=== PATIENT | male | born 1950 | race Caucasian/White ===

== ENCOUNTER 2017-03-24 12:18 | Inpatient (IN) | payer OTHER ==
[2017-03-24] VITALS (23 sets, daily range): BP systolic 73–127; BP diastolic 51–85; PULSE 72–132; TEMP 32–32.9; O2SAT 93–100; Ht 170.2 cm; Wt 85.0 kg
[~2017-03-24] VITALS: Ht 170.2 cm; Wt 85.0 kg
[2017-03-24] MEDS ORDERED: LIDOCAINE HCL/D5W 4 MG/ML 2000 MG/500 ML BAG IV STA (12:19)
[2017-03-24] MEDS ORDERED: ASPIRIN 300 MG SUPP PR ONE (12:30)
[2017-03-24] MEDS ORDERED: NiCARDipine HCL INJ 2.5 MG/ML 10 ML AMP ONE (12:39)
[2017-03-24] MEDS ORDERED: HEPARIN SOD (PORCINE) 1000 UNIT/ML 10 ML VIAL ONE (12:39)
[2017-03-24] MEDS ORDERED: FENTANYL CITRATE INJ 50 MCG/1 ML 2 ML VIAL ONE (12:40)
[2017-03-24] MEDS ORDERED: MIDAZOLAM HCL 1 MG/ML 2ML VIAL ONE (12:40)
[2017-03-24] MEDS ORDERED: NITROGLYCERIN/D5W 100MCG/ML 20ML SYR ONE (12:40)
[2017-03-24] MEDS ORDERED: SODIUM CHLORIDE 0.9% 1000ML 1,000 ML IV STA (12:58)
[2017-03-24] MEDS ORDERED: EpINEphrine HCL INJ 4 MG in DEXTROSE 5% 250ML 250 ML IV PRN (12:58)
--- NOTE | 2017-03-24 13:01 | EMERGENCY ROOM VISIT NOTE ---
History Report prepared by Bijal: Thomas Fernandes Under the Supervision of: Dr. Ervin Phipps D.O. First contact with patient: 12:15 Stated Complaint: CARDIAC ARREST/HEART ALERT History of Present Illness The patient is a 66 year old male who presents to the Emergency Room with complaints of centralized sided chest pain that began this morning at 0500. This HPI is provided by EMS and that patient's family secondary to his intubation. When the patient's chest pain began, he did not want to go to the hospital. He took 6 Advil and went about his morning. He then had a witnessed cardiac arrest. The patient's significant other is confined to a wheelchair, so she contacted their neighbor who is a nurse. CPR was initiated at that time. After BLS arrived, they took over CPR. He was defibrillated 4 times. He was given 4 of Epinephrine, a bolus of lidocaine, and 1 L of saline. He was then intubated. We ordered lidocaine for when the patient arrives. The patient has four distal pulses. Source of History: family, EMS Onset: this morning Position: chest (left) Symptom Intensity: moderate Quality: sharp Timing: constant Note: The patient had a witnessed cardiac arrest and was intubated. Review of Systems See HPI for pertinent positives & negatives. A total of 10 systems reviewed and were otherwise negative. Past Medical & Surgical Medical Problems: (1) Anemia (2) Herniated disc (3) Hx of transfusion of packed red blood cells (4) Hx of ulcer disease (5) Kidney stones (6) Obesity (7) Umbilical hernia Surgical Problems: (1) History of lithotripsy Family History FH: cancer FH: lung disease Kidney disease Kidney stones Social History Smoking Status: Never Smoker Alcohol Use: occasionally Marital Status: Housing Status: lives with significant other Occupation Status: employed Current/Historical Medications Unable to Obtain Active Prescriptions or Reported Meds Allergies Coded Allergies: Tomato (Verified Allergy, Intermediate, HIVES, 10/12/13) Physical Exam Vital Signs Date Time Temp Pulse Resp B/P (MAP) Pulse Ox O2 Delivery O2 Flow Rate FiO2 03/24/17 15:25 81 16 127/85 (99) 98 Mechanical Ventilator 100 03/24/17 15:15 81 16 131/85 (100) 98 Mechanical Ventilator 100 03/24/17 13:15 137 03/24/17 13:14 138 03/24/17 13:13 34.6 140 16 Mechanical Ventilator 03/24/17 13:02 64 18 42/28 93 Mechanical Ventilator 15.0 03/24/17 12:57 70 14 37/27 95 Mechanical Ventilator 15.0 03/24/17 12:55 70 21 43/24 94 Mechanical Ventilator 15.0 03/24/17 12:54 100 03/24/17 12:49 84 03/24/17 12:48 87 14 89 Mechanical Ventilator 03/24/17 12:42 Mechanical Ventilator 15.0 03/24/17 12:42 Mechanical Ventilator 15.0 03/24/17 12:42 Mechanical Ventilator 15.0 Physical Exam GENERAL: Patient is unresponsive with an endotracheal tube in place. EYES: Pupils are dilated and minimally reactive to light bilaterally. EARS, NOSE, MOUTH AND THROAT: The nose is without any evidence of any deformity. Mucous membranes are moist tongue is midline NECK: The neck is nontender and supple. RESPIRATORY: Lung sounds are diminished in all left lung lagunas. Respiration is only detected with the ventilator. CARDIOVASCULAR: Regular rate and rhythm noted there no murmurs rubs or gallops normal S1 normal S2 GASTROINTESTINAL: The abdomen is moderately distended, but soft. No guarding or rigidity. Bowel sounds are present in all quadrants. Abdomen is nontender MUSCULOSKELETAL/EXTREMITIES: There is no evidence of gross deformity full range of motion is noted in the hips and shoulders SKIN: Pedal edema bilaterally. There is no obvious evidence of any rash. There are no petechiae, pallor or cyanosis noted. NEUROLOGIC: GCS 3, intubated. Medical Decision & Procedures ER Provider Diagnostic Interpretation: Radiology results as stated below per my review and radiologist interpretation: CHEST ONE VIEW PORTABLE CLINICAL HISTORY: EVALUATE ALTERED MENTAL STATUS/WEAKNESS mental status change COMPARISON STUDY: 10/15/2013 FINDINGS: Interval increase in cardiac size. Diffuse parenchymal infiltrate left hemithorax. Small right-sided pneumothorax. Maximum pleural separation right base is 1.4 cm with 1.1 cm at the upper right hemithorax. There is an endotracheal tube at the genaro. This should be pulled back several centimeters. IMPRESSION: 1. Endotracheal tube at the genaro. 2. This should be pullback several centimeters. 3. Diffuse parenchymal infiltrative change left hemithorax with a slight cardiac mediastinal silhouette shift to left. 4. Small right pneumothorax. The above report was generated using voice recognition software. It may contain grammatical, syntax or spelling errors. Electronically signed by: Martin Lopez M.D. 03/24/2017 1:13 PM Dictated Date/Time: 03/24/2017 1:11 PM CHEST ONE VIEW PORTABLE CLINICAL HISTORY: ORDER TUBE CHECK pneumothorax COMPARISON STUDY: 03/24/2017 12:57 PM FINDINGS: Interval placement of a small caliber right-sided chest tube. Right pneumothorax has resolved. Parenchymal infiltrative changes left hemithorax is similar to perhaps slightly improved. Fullness of the aortopulmonary window region as well as retrocardiac region in terms of increased density are similar. Endotracheal tube is 1 cm above the genaro. IMPRESSION: 1. Placement of a small caliber right-sided chest tube with complete inflation of the right lung. 2. Similar increase in density and diffuse infiltrative change left hemithorax. 3. Endotracheal tube 1 cm above the genaro. The above report was generated using voice recognition software. It may contain grammatical, syntax or spelling errors. Electronically signed by: Martin Lopez M.D. 03/24/2017 1:22 PM Dictated Date/Time: 03/24/2017 1:20 PM Laboratory Results Test 03/24/17 12:33 03/24/17 12:53 03/24/17 12:55 03/24/17 12:57 Bedside Glucose 256 mg/dl (70-99) RDW Standard Deviation 50.3 fL (36.4-46.3) RDW Coefficient of Variation 14.5 % (11.5-14.5) White Blood Count 11.29 K/uL (4.8-10.8) Red Blood Count 3.49 M/uL (4.7-6.1) Hemoglobin 10.4 g/dL (14.0-18.0) Hematocrit 33.4 % (42-52) Mean Corpuscular Volume 95.7 fL (80-100) Mean Corpuscular Hemoglobin 29.8 pg (25-34) Mean Corpuscular Hemoglobin Concent 31.1 g/dl (32-36) Platelet Count 183 K/uL (130-400) Mean Platelet Volume 10.9 fL (7.4-10.4) Neutrophils (%) (Auto) 63.4 % Lymphocytes (%) (Auto) 26.0 % Monocytes (%) (Auto) 6.0 % Eosinophils (%) (Auto) 2.3 % Basophils (%) (Auto) 0.4 % Neutrophils # (Auto) 7.17 K/uL (1.4-6.5) Lymphocytes # (Auto) 2.93 K/uL (1.2-3.4) Monocytes # (Auto) 0.68 K/uL (0.11-0.59) Eosinophils # (Auto) 0.26 K/uL (0-0.5) Basophils # (Auto) 0.04 K/uL (0-0.2) Immature Granulocyte % (Auto) 1.9 % Immature Granulocyte # (Auto) 0.21 K/uL (0.00-0.02) Total Bilirubin 0.3 mg/dl (0.2-1) Direct Bilirubin 0.1 mg/dl (0-0.2) Aspartate Amino Transf (AST/SGOT) 100 U/L (15-37) Alanine Aminotransferase (ALT/SGPT) 78 U/L (12-78) Alkaline Phosphatase 39 U/L (45-117) Total Creatine Kinase 264 U/L (39-308) Creatine Kinase MB 6.9 ng/ml (0.5-3.6) Creatine Kinase MB Ratio 2.6 (0-3.0) Pro-B-Type Natriuretic Peptide 196 pg/ml (0-900) Total Protein 3.7 gm/dl (6.4-8.2) Albumin 1.7 gm/dl (3.4-5.0) Lipase 268 U/L (73-393) Thyroid Stimulating Hormone (TSH) 10.900 uIu/ml (0.300-4.500) Bedside Troponin I 0.350 ng/ml (0-0.045) Test 03/24/17 12:58 03/24/17 13:02 03/24/17 13:55 03/24/17 15:04 Bedside Lactic Acid Venous 9.43 mmol/L (0.90-1.70) Bedside Hemoglobin 8.8 g/dl (14.0-18.0) Bedside Hematocrit 26 % (42-52) Bedside Sodium 146 mEq/L (135-144) Bedside Potassium 2.8 mEq/L (3.3-5.0) Bedside Chloride 115 mEq/L (101-112) Bedside Total CO2 14 mEq/l (24-31) Bedside Blood Urea Nitrogen 10 mg/dl (7-18) Bedside Creatinine 0.9 mg/dl (0.6-1.3) Bedside Glucose (other) 195 mg/dl (70-99) Bedside Ionized Calcium (Lizy) 0.83 mmol/l (1.12-1.32) Bedside Blood Gas pH (LAB) 7.31 (7.35-7.45) Bedside Blood Gas pCO2 (LAB) 33 mmHg (35-46) Bedside Blood Gas pO2 (LAB) 197 mmHg (80-95) Bedside Blood Gas HCO3 (LAB) 17 meq/L (19-24) Bedside Blood Gas Total CO2 18 mEq/l (24-31) Bedside Blood Gas Base Excess (LAB) -9.0 meq/L (-9-1.8) Bedside Blood Gas O2 Saturation 100.0 % (90-95) Test 03/24/17 15:07 Kaolin Activated Coagulation Time 230 SECONDS (94-140) Laboratory results per my review. Medications Administered Medications (Trade) Dose Ordered Sig/Maxine Route Start Time Stop Time Status Last Admin Dose Admin Aspirin (Aspirin Supp) 300 mg ONE ONCE HI 03/24/17 12:30 03/24/17 12:31 DC 03/24/17 12:30 300 MG Lidocaine HCl/ Dextrose (Lidocaine / D5w 4MG/Ml Drip) 2,000 mg NOW STAT IV 03/24/17 12:19 03/24/17 12:22 DC 03/24/17 12:19 2,000 MG Heparin Sodium (Porcine) (Heparin Iv Bolus) 10,000 unit STK-MED ONCE .ROUTE 03/24/17 12:39 03/24/17 12:40 DC 03/24/17 12:39 10,000 UNIT Sodium Bicarbonate (Sodium Bicarbonate 8.4% Inj) 150 ml STK-MED ONCE IV 03/24/17 13:06 03/24/17 13:07 DC 03/24/17 13:06 150 ML Eptifibatide (Integrilin Inj) 40 mg STK-MED ONCE IV 03/24/17 13:47 03/24/17 13:48 DC 03/24/17 13:47 40 MG Eptifibatide (Integrilin Inj) 75 mg STK-MED ONCE IV 03/24/17 13:47 03/24/17 13:48 DC 03/24/17 13:47 75 MG Amiodarone HCL/ Dextrose (Nexterone / D5w) 150 mg STK-MED ONCE .ROUTE 03/24/17 14:02 03/24/17 14:03 DC 03/24/17 14:02 150 MG Amiodarone HCL/ Dextrose (Nexterone / D5w) 360 mg STK-MED ONCE .ROUTE 03/24/17 14:03 03/24/17 14:04 DC 03/24/17 14:03 360 MG Procedure Tube Thoracostomy Indication: Right Sided Pneumothorax Using the pneumothorax kit, the proper area was identified in the anterior axillary line on the right, lateral to the right nipple. The skin was incised using an 11 blade, the chest tube catheter was advanced over top of the needle, good air return noted. The catheter was anchored to the skin using non- absorbable suture material. Attached initially to Heimlich valve then a Pleura- vac. Post procedure chest x-ray showed re-expansion of the right lung. ECG Indication: chest pain Rate (beats per minute): 85 Rhythm: normal sinus Findings: ST elevation (Inferior, with reciprocal changes consistent with inferior wall LA) Comparison ECG Date: Prehospital ECG Change: Prehospital: Sinus tachycardia 138, ST abnormalities in the inferior and lateral leads consistent with LA, no PVCs. Changes are new. ED Course 1215: The patient was evaluated in room B1. A complete history and physical examination were performed. 1219: Ordered Lidocaine HCl/ Dextrose 2000 mg IV 1230: Ordered Aspirin 300 mg HI 1237: While the patient was en route to the hospital, they lost his pulses. He was given an additional dose of Epinephrine which reestablished his pulses. 1252: I updated the patient's family at this time. 1308: I performed a chest tube placement procedure at this time. Please see the procedure note for more information. 1310: I discussed the patient's case with Dr. Metzger of the ICU and Dr. Salazar of Cardiology. The patient will be taken to the cardiac catheterization lab for further treatment and management. Medical Decision Differential diagnosis: Etiologies such as cardiac ischemia, aortic dissection, pulmonary embolism, pneumonia, pneumothorax, musculoskeletal, infections, pericarditis, myocarditis , esophageal rupture, gastrointestinal, as well as others were entertained. Nursing notes reviewed. Additional history is obtained from the patient's family members. Additional history is obtained from the prehospital personnel. The patient is a 66-year-old male who began having chest pain at approximate 5 o 'clock this morning. His significant other prompted him to go to the emergency department but he did not wish to go at that time. The patient took Motrin without relief. He then had a witnessed cardiac arrest at some point through the day. He initially did not have CPR but a neighbor who came to the house started CPR on the patient. BLS arrived on scene as well as ALS shortly after. The patient had defibrillation 4 times as well as 4 doses of epinephrine. He was having episodes of asystole as well as PEA. The patient had a loss of pulse for a prolonged period of time. Initially the boilermaker welder called me for medical command. There was discussion of termination of efforts however the patient had return of spontaneous circulation and the decision was made to transport the patient for facility because his initial 12-lead EKG after return of spontaneous circulation revealed ST segment elevation LA. The patient received lidocaine prior to arrival. The patient was continued on lidocaine and given rectal aspirin in the emergency department. He was resuscitated and made a code arctic while he was in the emergency department. The patient was found have an endotracheal tube which was quite low this was backed up and chest x-ray revealed improved aeration of the left lung field. He was also found have a small pneumothorax on the right given he was on a pressure ventilation a chest tube was placed on the right using the pneumothorax kit. The patient's vital signs improved somewhat. I discussed the patient's laboratory and radiographic studies with his family members. They are aware of the prognosis at this time and that the patient's condition is critical. The patient was reevaluated multiple times. Ultimately he was taken to the cardiac catheterization lab. The patient was evaluated by the air export operations agent while in the emergency department as well. Head Trauma GCS Score: 3 Medication Reconcilliation Current Medication List: was personally reviewed by me Blood Pressure Screening Patient's blood pressure: Low blood pressure Consults Time Called: 1305 Consulting Physician: Dr. Metzger - ICU Returned Call: [phone] We discussed the patient's case. Additional Consults: Time Called: 1305 Consulted Physician: Dr. Salazar - Cardiology Returned Call: [phone] Additional Comments: He will evaluate the patient in the catheterization lab. Impression Primary Impression: Cardiac arrest Additional Impressions: Ventricular tachycardia Acute LA, inferior wall Anemia Hypocalcemia Pneumothorax on right Critical Care I have personally spent greater than 60 minutes of critical care time in the direct management of this patient. This includes bedside care, interpretation of diagnostic studies, and testing, discussion with consultants, patient, and family members, and other required patient management activities. This 60 minutes is in excess of all separately billable procedures. Scribe Attestation The scribe's documentation has been prepared under my direction and personally reviewed by me in its entirety. I confirm that the note above accurately reflects all work, treatment, procedures, and medical decision making performed by me. Departure Information Prescriptions Unable to Obtain Active Prescriptions or Reported Meds Referrals No Doctor, Assigned (PCP) Problem Qualifiers Additional Impressions: Anemia Anemia type: unspecified type Qualified Codes: D64.9 - Anemia, unspecified
[2017-03-24] MEDS ORDERED: SODIUM BICARB 8.4% INJ 50 MEQ/50 ML SYR IV ONE ×2 (13:06→15:08)
--- NOTE | 2017-03-24 13:14 | DIAGNOSTIC IMAGING REPORT ---
CHEST ONE VIEW PORTABLE CLINICAL HISTORY: EVALUATE ALTERED MENTAL STATUS/WEAKNESS mental status change COMPARISON STUDY: 10/15/2013 FINDINGS: Interval increase in cardiac size. Diffuse parenchymal infiltrate left hemithorax. Small right-sided pneumothorax. Maximum pleural separation right base is 1.4 cm with 1.1 cm at the upper right hemithorax. There is an endotracheal tube at the genaro. This should be pulled back several centimeters. IMPRESSION: 1. Endotracheal tube at the genaro. 2. This should be pullback several centimeters. 3. Diffuse parenchymal infiltrative change left hemithorax with a slight cardiac mediastinal silhouette shift to left. 4. Small right pneumothorax. The above report was generated using voice recognition software. It may contain grammatical, syntax or spelling errors. Electronically signed by: Martin Lopez M.D. 03/24/2017 1:13 PM Dictated Date/Time: 03/24/2017 1:11 PM
[2017-03-24 13:15] LABS: ISTAT CREATININE 0.9 mg/dl (0.6-1.3); ISTAT HEMOGLOBIN 8.8 g/dl (14.0-18.0); ISTAT IONIZED CALCIUM 0.83 mmol/l (1.12-1.32)
[2017-03-24 13:18] LABS: BASO % 0.4 %; BASO ABS # 0.04 K/uL (0-0.2); COMPLETE YES; EOS % 2.3 %; HEMATOCRIT 33.4 % (42-52); IG% 1.9 %; LYMPH ABS # 2.93 K/uL (1.2-3.4); MEAN CELL VOLUME 95.7 fL (80-100); MEAN CORPUSCULAR HEMOGLOBIN 29.8 pg (25-34); MEAN CORPUSCULAR HGB CONC 31.1 g/dl (32-36); MEAN PLATELET VOLUME 10.9 fL (7.4-10.4); NEUT % 63.4 %; PLATELET COUNT 183 K/uL (130-400); RED BLOOD COUNT 3.49 M/uL (4.7-6.1); WHITE BLOOD COUNT 11.29 K/uL (4.8-10.8)
--- NOTE | 2017-03-24 13:23 | DIAGNOSTIC IMAGING REPORT ---
CHEST ONE VIEW PORTABLE CLINICAL HISTORY: MD ORDER TUBE CHECK pneumothorax COMPARISON STUDY: 03/24/2017 12:57 PM FINDINGS: Interval placement of a small caliber right-sided chest tube. Right pneumothorax has resolved. Parenchymal infiltrative changes left hemithorax is similar to perhaps slightly improved. Fullness of the aortopulmonary window region as well as retrocardiac region in terms of increased density are similar. Endotracheal tube is 1 cm above the genaro. IMPRESSION: 1. Placement of a small caliber right-sided chest tube with complete inflation of the right lung. 2. Similar increase in density and diffuse infiltrative change left hemithorax. 3. Endotracheal tube 1 cm above the genaro. The above report was generated using voice recognition software. It may contain grammatical, syntax or spelling errors. Electronically signed by: Martin Lopez M.D. 03/24/2017 1:22 PM Dictated Date/Time: 03/24/2017 1:20 PM
[2017-03-24 13:26] LABS: INR 1.1 (0.9-1.1); PARTIAL THROMBOPLASTIN RATIO 1.2
[2017-03-24] MEDS ORDERED: EPTIFIBATIDE 2 MG/ML 10 ML VIAL IV ONE (13:47)
[2017-03-24] MEDS ORDERED: EPTIFIBATIDE 0.75 MG/ML 75MG VIAL IV ONE (13:47)
[2017-03-24 13:53] LABS: ALKALINE PHOSPHATASE 39 U/L (45-117); ALT/SGPT 78 U/L (12-78); AST/SGOT 100 U/L (15-37); BLOOD UREA NITROGEN 12 mg/dl (7-18); BUN/CREATININE RATIO 12.4 (10-20); CALCIUM 5.3 mg/dl (8.5-10.1); CARBON DIOXIDE 13 mmol/L (21-32); CHLORIDE 117 mmol/L (98-107); CKMB/CK RATIO 2.6 (0-3.0); CREATININE 0.98 mg/dl (0.60-1.40); GLUCOSE 203 mg/dl (70-99); MAGNESIUM 1.4 mg/dl (1.8-2.4); PHOSPHORUS 5.3 mg/dl (2.5-4.9); SODIUM 149 mmol/L (136-145)
[2017-03-24] MEDS ORDERED: MIDAZOLAM 125MG/250ML D5W 250 ML IV PRN (13:55)
[2017-03-24] MEDS ORDERED: FENTANYL 1250MCG/250ML NSS 250 ML IV SCH (13:55)
[2017-03-24] MEDS ORDERED: ARTIFICIAL TEARS OP OINT 3.5 GM TUBE OPB PRN (14:00)
[2017-03-24] MEDS ORDERED: BusPIRone 15 MG TAB NG PRN (14:00)
[2017-03-24] MEDS ORDERED: AMIODARONE / D5W 200 ML IV SCH (14:00)
[2017-03-24] MEDS ORDERED: SEVERE STRESS LEVEL ONE (14:00)
[2017-03-24] MEDS ORDERED: INSULIN PROTOCOL GOAL RANGE ONE (14:00)
[2017-03-24] MEDS ORDERED: AMIODARONE 150MG / 100ML D5W ONE (14:02)
[2017-03-24] MEDS ORDERED: AMIODARONE 360MG / 200ML D5W ONE (14:03)
[2017-03-24] MEDS ORDERED: ICU ELECTROLYTE REPLACEMENT PROTOCOL PRN (14:15)
--- NOTE | 2017-03-24 14:22 | Critical Care Consultation ---
Critical Care Consultation Date of Consultation: Mar 24, 2017. Attending Physician: Azar Shook Reason for Consultation: Cardiac Arrest s/p STEMI of mid LAD History of Present Illness History is obtained from EMS as well as the patient's significant other. Since approximately 5:30 this morning the patient had been complaining of mid sternal chest pain, he had taken 2 tablets of Advil approximately 3 times for increasing chest pain that would not go away. Patient's significant other reported that she had convinced the patient to go to the hospital and while in the kitchen the patient suffered a cardiac arrest falling backwards striking his head on the floor. EMS was activated and the patient's significant other who is wheelchair bound called a neighbor who is a nurse who started CPR. Per EMS CPR was in progress upon their arrival, they followed ACLS protocol intubated the patient with a 8.0 endotracheal breathing tube, gave 4 rounds of epinephrine and had continuous CPR. There was a report of possible ventricular fibrillation on the patient monitor and he was defibrillated at least once. After approximately 20 minutes of CPR the patient regained a spontaneous perfusing rhythm. He was transported to [facility] for possible catheter intervention. While in transport the patient suffered another cardiac arrest for which CPR was again started and given 1 additional milligram of epinephrine. In the emergency department the patient was found to have a pneumothorax which was treated promptly at the bedside. The endotracheal tube was also found to be deep and was pulled back and improved aeration and breath sounds. Patient was promptly taken to the cardiac [facility] for further intervention. While in the [facility] the patient was found to have a lesion in the LAD which was stented. Since at least 30 minutes had progressed since the initial cardiac event the patient did not exhibit any spontaneous movements, his Bita Coma Scale was 3T and therapeutic hypothermia protocol was initiated. Both Dr. Phipps and Dr. Salazar as well as myself have updated the patient's family who consists of one son, a sister, and a significant other who resides with him. Past Medical/Surgical History History obtained from the patient's son: History of ulcerative disease leading to acute blood loss anemia for which she was transfused couple years ago. He was seen in [facility] at that time History of kidney stones with lithotripsy requiring hospital admission in [place]. 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) Allergies Coded Allergies: Tomato (Verified Allergy, Intermediate, HIVES, 10/12/13) Home Medications Unable to Obtain Active Prescriptions or Reported Meds Current Inpatient Medications Current Inpatient Medications Medications (Trade) Dose Ordered Sig/Maxine Route Start Time Stop Time Status Last Admin Dose Admin Epinephrine HCl 4 mg/Dextrose 254 ml @ 0 mls/hr Q0M PRN IV 03/24/17 12:58 04/23/17 12:57 Artificial Tears (Lacri-Lube Oph Oint) 1 appln Q2H PRN OPB 03/24/17 14:00 04/23/17 13:59 UNV Midazolam HCl 250 ml @ 0 mls/hr Q0M STAT IV 03/24/17 13:55 03/24/17 13:56 UNV Fentanyl Citrate 250 ml @ 0 mls/hr Q0M IV 03/24/17 13:55 04/07/17 13:54 UNV Buspirone HCl (BusPAR TAB) 60 mg ONE PRN NG 03/24/17 14:00 04/23/17 13:59 UNV Pantoprazole Sodium 40 mg/ Syringe 10 ml @ 5 mls/min Q24H IV 03/24/17 14:00 04/23/17 13:59 UNV Insulin Human Regular (Insulin IV Infusion Protocol) 1 ea NOW STAT N/A 03/24/17 13:55 03/24/17 13:56 UNV Insulin Aspart (novoLOG ASPART) [facility] 03/24/17 19:00 04/23/17 18:59 UNV Miscellaneous (Insulin Protocol Goal Range (Other)) 1 ea ONE ONCE N/A 03/24/17 14:00 03/24/17 14:01 UNV Miscellaneous (Insulin Protocol Severe Stress) 1 ea ONE ONCE N/A 03/24/17 14:00 03/24/17 14:01 UNV Parenteral Electrolyte Solution 1,000 ml @ 125 mls/hr Q8H IV 03/24/17 14:15 04/23/17 14:14 UNV Miscellaneous Information ( Icu Electrolyte Replacement Protocol) 1 ea per protocol PRN N/A 03/24/17 14:15 03/31/17 14:14 UNV Review of Systems unable to obtain due to cardiac arrest Physical Exam Date Time Temp Pulse Resp B/P (MAP) Pulse Ox O2 Delivery O2 Flow Rate FiO2 03/24/17 13:15 137 03/24/17 13:14 138 03/24/17 13:13 34.6 140 16 Mechanical Ventilator 03/24/17 13:02 64 18 93 Mechanical Ventilator 15.0 03/24/17 12:57 70 14 95 Mechanical Ventilator 15.0 03/24/17 12:55 70 21 94 Mechanical Ventilator 15.0 03/24/17 12:54 100 03/24/17 12:49 84 03/24/17 12:48 87 14 89 Mechanical Ventilator 03/24/17 12:42 Mechanical Ventilator 15.0 03/24/17 12:42 Mechanical Ventilator 15.0 03/24/17 12:42 Mechanical Ventilator 15.0 General Appearance: severe distress Abdomen: no organomegaly, hypoactive bowel sounds, other (unbilical hernia freely reducible) Genitourinary - Male: other (miller present) Back: normal inspection Upper Extremities: no edema Lower Extremities: no edema Neuro: memory abnormal, other (GCS 3T) Psychiatric: other (intubated) Laboratory Results Last 24 Hours Test 03/24/17 12:33 03/24/17 12:55 03/24/17 12:57 03/24/17 12:58 White Blood Count 11.29 K/uL Red Blood Count 3.49 M/uL Hemoglobin 10.4 g/dL Hematocrit 33.4 % Mean Corpuscular Volume 95.7 fL Mean Corpuscular Hemoglobin 29.8 pg Mean Corpuscular Hemoglobin Concent 31.1 g/dl Platelet Count 183 K/uL Mean Platelet Volume 10.9 fL Neutrophils (%) (Auto) 63.4 % Lymphocytes (%) (Auto) 26.0 % Monocytes (%) (Auto) 6.0 % Eosinophils (%) (Auto) 2.3 % Basophils (%) (Auto) 0.4 % Neutrophils # (Auto) 7.17 K/uL Lymphocytes # (Auto) 2.93 K/uL Monocytes # (Auto) 0.68 K/uL Eosinophils # (Auto) 0.26 K/uL Basophils # (Auto) 0.04 K/uL RDW Standard Deviation 50.3 fL RDW Coefficient of Variation 14.5 % Immature Granulocyte % (Auto) 1.9 % Immature Granulocyte # (Auto) 0.21 K/uL Prothrombin Time 12.0 SECONDS Prothromb Time International Ratio 1.1 Activated Partial Thromboplast Time 31.3 SECONDS Partial Thromboplastin Ratio 1.2 Sodium Level 149 mmol/L Potassium Level 3.0 mmol/L Chloride Level 117 mmol/L Carbon Dioxide Level 13 mmol/L Anion Gap 19.0 mmol/L Blood Urea Nitrogen 12 mg/dl Creatinine 0.98 mg/dl Estimated GFR () 92.7 Estimated GFR (Non- 80.0 BUN/Creatinine Ratio 12.4 Random Glucose 203 mg/dl Calcium Level 5.3 mg/dl Phosphorus Level 5.3 mg/dl Magnesium Level 1.4 mg/dl Total Bilirubin 0.3 mg/dl Direct Bilirubin 0.1 mg/dl Aspartate Amino Transf (AST/SGOT) 100 U/L Alanine Aminotransferase (ALT/SGPT) 78 U/L Alkaline Phosphatase 39 U/L Total Creatine Kinase 264 U/L Creatine Kinase MB 6.9 ng/ml Creatine Kinase MB Ratio 2.6 Troponin I 0.492 ng/ml Pro-B-Type Natriuretic Peptide 196 pg/ml Total Protein 3.7 gm/dl Albumin 1.7 gm/dl Lipase 268 U/L Thyroid Stimulating Hormone (TSH) 10.900 uIu/ml Bedside Troponin I 0.350 ng/ml Bedside Lactic Acid Venous 9.43 mmol/L Test 03/24/17 13:02 03/24/17 13:55 Bedside Hemoglobin 8.8 g/dl Bedside Hematocrit 26 % Bedside Sodium 146 mEq/L Bedside Potassium 2.8 mEq/L Bedside Chloride 115 mEq/L Bedside Total CO2 14 mEq/l Anion Gap 22.0 mmol/L Bedside Blood Urea Nitrogen 10 mg/dl Bedside Creatinine 0.9 mg/dl Bedside Glucose (other) 195 mg/dl Bedside Ionized Calcium (Lizy) 0.83 mmol/l Diagnostic Results CHEST ONE VIEW PORTABLE CLINICAL HISTORY: MD ORDER TUBE CHECK pneumothorax COMPARISON STUDY: 03/24/2017 12:57 PM FINDINGS: Interval placement of a small caliber right-sided chest tube. Right pneumothorax has resolved. Parenchymal infiltrative changes left hemithorax is similar to perhaps slightly improved. Fullness of the aortopulmonary window region as well as retrocardiac region in terms of increased density are similar. Endotracheal tube is 1 cm above the genaro. IMPRESSION: 1. Placement of a small caliber right-sided chest tube with complete inflation of the right lung. 2. Similar increase in density and diffuse infiltrative change left hemithorax. 3. Endotracheal tube 1 cm above the genaro. The above report was generated using voice recognition software. It may contain grammatical, syntax or spelling errors. Electronically signed by: Martin Lopez M.D. 03/24/2017 1:22 PM Dictated Date/Time: 03/24/2017 1:20 PM Assessment & Plan (1) Cardiac arrest (2) ST elevation (STEMI) myocardial infarction involving left anterior descending coronary artery (3) Anemia (4) Pneumothorax on right (5) Ribs, multiple fractures (6) Closed rib fracture (7) Obesity Reason Critically Ill: 66-year-old male who suffered a cardiac arrest secondary to an ST elevation IA of the left anterior descending coronary artery PLAN: Neuro: Therapeutic hypothermia protocol Continuous EEG monitoring I have notified Dr. Dee of the continuous EEG, I placed a consult for Dr. Lee who is coming on service tomorrow Resp: Multiple rib fractures on right * Pain control with fentanyl infusion Pneumothorax right * Chest tube placed in the ED, placed on suction of -15 cm of water CV: Cardiac arrest secondary to ST elevation IA secondary to occlusion of the mid left anterior descending artery * Amiodarone infusion for arrhythmia * Check lipid panel * Routine post cardiac cath meds * Holding HYUN inhibitor at this time Fluids/Renal: Normal so I'll at 125 ML's number ID: Monitor fever curve GI/Nutrition: Nothing by mouth * G2 to low intermittent wall suction Heme: Will require DVT prophylaxis Will require antiplatelet therapy Endocrine: Check TSH Insulin drip during hypothermia protocol CODE STATUS: Full code Son reports that patient would not want prolonged life support if patient did not have opportunity of meaningful recovery. I have personally spent 95 minutes of critical care time in the direct management of this patient. This is a life/limb threatening event. This includes time spent evaluating patient, direct bedside care, chart review, placing orders, interpretation of diagnostic studies, discussion with consultants, patient, and family members, as well as other required patient management activities. This time is exclusive of all separately billable procedures, and teaching time and separate from and in addition to any other critical care service time.
[2017-03-24] MEDS: INSULIN IV INFUSION PROTOCOL SCH ×2 (14:25→14:40)
[2017-03-24] MEDS ORDERED: GLUCOSE 40% GEL 15 GM TUBE PO PRN (14:30)
[2017-03-24] MEDS ORDERED: GLUCAGON FOR INJ 1 MG VIAL SQ PRN (14:30)
[2017-03-24] MEDS ORDERED: GLUCOSE 10 TABS/TUBE PO PRN (14:30)
[2017-03-24] MEDS ORDERED: DEXTROSE 50% 50 ML SYR IV PRN (14:30)
[2017-03-24 15:21] LABS: ISTAT ARTERIAL BLOOD GAS HCO3 20 meq/L (19-24); ISTAT ARTERIAL BLOOD GAS PCO2 63 mmHg (35-46); ISTAT ARTERIAL BLOOD GAS PO2 150 mmHg (80-95); ISTAT ARTERIAL BLOOD GAS pH 7.12 (7.35-7.45); ISTAT CARBON DIOXIDE 22 mEq/l (24-31)
[2017-03-24 15:21] LABS: ISTAT ARTERIAL BLOOD GAS HCO3 17 meq/L (19-24); ISTAT ARTERIAL BLOOD GAS PCO2 33 mmHg (35-46); ISTAT ARTERIAL BLOOD GAS PO2 197 mmHg (80-95); ISTAT ARTERIAL BLOOD GAS pH 7.31 (7.35-7.45); ISTAT CARBON DIOXIDE 18 mEq/l (24-31)
[2017-03-24] MEDS ORDERED: AMIODARONE IV BOLUS / DRIP IV STA (15:24)
[2017-03-24] MEDS ORDERED: EPTIFIBATIDE BOLUS / DRIP IV ONE (15:30)
--- NOTE | 2017-03-24 16:01 | Cardiac Catheterization ---
Procedure Note Procedure Date Mar 24, 2017. Pre-Procedure Diagnosis STEMI AUC Score 9 Post-Procedure Diagnosis Severe CAD, Successful PCI, Normal Intracardiac Pressures Procedure(s) Performed Coronary Angiography, Left Heart Cath, Drug Eluting Stent, IVUS Core Baker Martin Chimney Builder Brick(s) wilmer Estimated Blood Loss 25 Medication(s) Heparin, Integrilin, Nicardipine, Nitroglycerin, Norepinephrine, Versed, Lidocaine 1% Into laborer salvage on epinephrine, lidocaine switched to norepinephrine, amiodarone Summary of Findings Indication: STEMI/Heart Alert Patient with complaints of chest pain approximately 5AM today. Cardiac arrest at home with more than 20 minutes of CPR and reportedly multiple shocks in the field/en route. ECG on arrival showed subtle inferior ST elevations, anterior ST depressions. Cooling protocol initiated in ED. Chest tube placed for pneumothorax in ED prior to transfer to laborer salvage. Access: 6Fr Right Radial Artery; 7Fr right CFV Catheters: Lincoln, pigtail; EBU 3.5 guide Findings: LM - Angiographically normal LAD - Moderate diffuse mid segment disease, 50% angiographically proximal to take-off of small 2nd diagonal, moderate 3rd diagonal; 100% acute occlusion in mid segment after diagonals. 60% ostial 2nd diagonal. 50-60% ostial 3rd diagonal. Circumflex - Moderate caliber vessel gives off large OM2, moderate OM3. Minimal luminal irregularities throughout. RCA - Dominant, 20% mid segment stenosis otherwise mild luminal irregularities. LVEDP - 17 -- PCI -- Antithrombotic therapy: Heparin, Integrilin Procedure: LM cannulated with EBU 3.5 guide Whisper wire passed across LAD lesion into distal vessel Mid lesion predilated with 2.5 compliant balloon Stent delivered to mid segment with aid of guideliner due to difficulty passing early-mid segment disease Dilated lesion stented with 2.75 x 28 Xience LIN from mid to distal vessel 2nd LIN overlapped proximally 2.75 x 23 Xience for residual moderate disease. IC vasodilators given for slow distal flow IVUS showed underexpanded stent proximally and 70% mildly calcified disease just before take-off of large 3rd diagonal. Stents post-dilated with 3.5 noncompliant balloon 3rd diagonal re-wired with with prowater wire 3rd (3.5 x 18 Xience) overlapping stent placed across take-off of 2nd/3rd diagonal Stents post-dilated with 3.5 NC balloon. Post procedure LEANNA 3 flow, stents well expanded with minimal residual stenosis and no apparent cardiac complications. 50% residual ostial stenosis in 3rd diagonal with TIMI3 flow. Arterial Closure: TR Band 7Fr Right CFV sheath sutured into place. Summary: 1. Acutely occluded late-mid LAD - Diffuse moderate to severe more proximal disease throughout mid segment of LAD 2. Normal intracardiac filling pressure 3. Successful PCI of mid LAD with 3 overlapping LIN (3.5 x 18, 2.75 x 23, 2.75 x 28 Xience) Recommendations: Admit to ICU for continued monitoring Therapeutic hypothermia per ICU team Continue integrilin for 8 hours Continue amiodarone infusion. To receive clopidogrel 600mg via NG tube in ICU Continue dual-antiplatelet therapy for at least a year Trend troponins until peak, Check Echo High-dose statin Hemodynamics Rest Ao: 140/91/113 Final Ao: 113/62/84 LV: 110/17 Recommendations PCI without planned CABG Specimens None Radiation Exposure (mGy) 6380 Contrast (mls) 260 Fluids (cc crystalloids) 3 L Drains None Anesthesia None Procedural Complication(s) None Disposition ICU ACC Data Cardiac Status Clinical evaluation leading to the procedure CAD Presntation: STEMI Anginal Classification: CCS IV Cardiogenic Shock w/in 24Hrs: Yes Cardiac Arrest w/in 24Hrs: Yes Imaging studies past 6 months: No Stress studies past 6 months: No Closure Device Percutaneous Entry Location: Radial Closure Device: Radial Band Recommendations: PCI without planned CABG PCI Indication: Immediate PCI for STEMI First Noted: First EKG Reason For Delay in PCI: Cardiac Arrest &/or Lesion Segment Name: Mid LAD Culprit Artery: Yes Stenosis Prior to Rx (%): 100 Chronic Total Occlusion: No IVUS: Yes FFR: No Pre-Procedure LEANNA Flow: 0 Previously Treated Lesion: No Lesion Complexity: High/C Lesion Length (mm): 45 Thrombus Present: Yes Bifurcation Lesion: Yes Guidewire Across Lesion: Yes Guidewire: Stenosis Post-Procedure (%): 0 Post-Procedure LEANNA Flow: 3 Device(s) Deployed: Yes Intraprocedure Events Significant Dissection: No Perforation: No
[2017-03-24] MEDS ORDERED: CLOPIDOGREL BISULFATE 300 MG TAB PO SCH (16:30)
[2017-03-24] MEDS ORDERED: NURSING VERBAL MED ORDER ONE (16:45)
[2017-03-24] MEDS ORDERED: PATIENT'S HEIGHT AND/OR WEIGHT NEEDED SCH (16:45)
--- NOTE | 2017-03-24 16:47 | ECHOCARDIOGRAM REPORT ---
*NOTICE TO RECEIVING LIBERTARIAN AGENCY This information is strictly Confidential and protected under [place] law. [place] law prohibits you from making any further disclosure of this information unless further disclosure is expressly permitted by the written consent of the person to whom it pertains or is authorized by law. A general authorization for the release of medical or other information is not sufficient for this purpose. Hospital accepts no responsibility if the information is made available to any other person, INCLUDING THE PATIENT. Interpretation Summary * Name: ESTRELLA MUÑOZ Study Date: 03/24/2017 04:00 PM BP: 127/85 mmHg * Patient Location: [facility] HR: 81 * : 1950 (M/d/yyyy) Gender: Male * Age: 66 yrs Ethnicity: CA * Ordering Physician: MD Brandyn Salazar MD * Referring Physician: UNKNOWN * Performed By: Nery Hazel RDCS * * Reason For Study: AMI * -- Conclusions -- * 1. Severely technically limited study. * 2. Small underfilled LV. * 3. LVEF grossly normal with akinetic apex. * 4. Grossly normal RV size and function. * 5. No pericardial effusion. Procedure Details * A two-dimensional transthoracic echocardiogram was performed. * The study was technically limited. * The study was technically difficult. * Limited views were obtained. * There were technical limitations due to patient'ssupine positioning while on mechanical ventilation Left Ventricle * The left ventricular cavity is small. * Left ventricular systolic function is mildly reduced. * Ejection Fraction = 45-50%. * There is apical akinesis. Right Ventricle * The right ventricle is grossly normal size. * The right ventricular systolic function is qualitatively normal. Atria * The left atrium is not well visualized. * Right atrium not well visualized. Mitral Valve * The mitral valve is not well visualized. Aortic Valve * The aortic valve is not well visualized. Pericardium/Pleural * There is no pericardial effusion.
[2017-03-24] MEDS: NOREPINEPHRINE BIT INJ 8 MG in DEXTROSE 5% 500ML 500 ML IV PRN (17:15)
[2017-03-24] MEDS: INSULIN ASPART 100 UNITS/ML 3 ML PEN SC SCH ×2 (17:15→21:00)
[2017-03-24] MEDS: NORMOSOL R 1,000 ML IV SCH (17:22)
--- NOTE | 2017-03-24 17:24 | DIAGNOSTIC IMAGING REPORT ---
HEAD WITHOUT CONTRAST (CT) CT DOSE: 3223.37 mGy.cm HISTORY: Trauma syncope TECHNIQUE: Multiaxial CT images of the head were performed without the use of intravenous contrast. A dose lowering technique was utilized adhering to the principles of ALARA. Comparison: None. Findings: The paranasal sinuses and mastoid air cells are clear. Increased density within all major sinuses as well as the interhemispheric fissure region. By history there appears to have been a catheterization type procedure several hours prior to the CT exam. This appears represent residual contrast from that procedure rather than blood. Density characteristics of the cerebellar as well as cerebral hemispheres are unremarkable. There is no deviation of midline structures. Impression: 1. Residual contrast from prior catheterization procedure. 2. No acute intracranial abnormality. 3. Moderate edematous changes the nasal turbinates and nasopharyngeal region The above report was generated using voice recognition software. It may contain grammatical, syntax or spelling errors. Electronically signed by: Martin Lopez M.D. 03/24/2017 5:23 PM Dictated Date/Time: 03/24/2017 5:21 PM
--- NOTE | 2017-03-24 17:26 | DIAGNOSTIC IMAGING REPORT ---
CERVICAL SPINE W/O CT DOSE: HISTORY: Trauma syncope fall TECHNIQUE: Multiaxial CT images of the cervical spine were performed and reformatted in the sagittal and coronal plane without the use of contrast. A dose lowering technique was utilized adhering to the principles of ALARA. COMPARISON: None. FINDINGS: No fractures. No subluxation. Prevertebral soft tissues and the C1-C2 interval are intact. No pneumothorax. Endotracheal tube in position. Small amount of fluid within the sphenoid sinuses. Mastoids are considered clear. Bilateral apical consolidative infiltrative changes present IMPRESSION: 1. No acute process of the cervical spine.. 2. Apical consolidative infiltrates of the pulmonary apices bilaterally. 3. Endotracheal tube and most likely nasogastric tube are present. The above report was generated using voice recognition software. It may contain grammatical, syntax or spelling errors. Electronically signed by: Martin Lopez M.D. 03/24/2017 5:25 PM Dictated Date/Time: 03/24/2017 5:23 PM
[2017-03-24 17:36] LABS: HEMATOCRIT 38.4 % (42-52); MEAN CELL VOLUME 93.4 fL (80-100); MEAN CORPUSCULAR HEMOGLOBIN 30.4 pg (25-34); MEAN CORPUSCULAR HGB CONC 32.6 g/dl (32-36); MEAN PLATELET VOLUME 10.8 fL (7.4-10.4); PLATELET COUNT 240 K/uL (130-400); RED BLOOD COUNT 4.11 M/uL (4.7-6.1); WHITE BLOOD COUNT 21.35 K/uL (4.8-10.8)
[2017-03-24 17:44] LABS: INR 1.2 (0.9-1.1); PARTIAL THROMBOPLASTIN RATIO 3.9; PROTHROMBIN TIME (PATIENT) 12.8 SECONDS (9.0-12.0)
[2017-03-24 17:45] LABS: BASO % 0.2 %; BASO ABS # 0.04 K/uL (0-0.2); COMPLETE YES; ECHINOCYTES 2+; EOS % 0.6 %; IG% 0.7 %; LYMPH % 11.2 %; LYMPH ABS # 2.39 K/uL (1.2-3.4); MONO % 4.8 %; NEUT % 82.5 %
[2017-03-24 17:50] LABS: BUN/CREATININE RATIO 11.7 (10-20); CALCIUM 6.6 mg/dl (8.5-10.1); CARBON DIOXIDE 23 mmol/L (21-32); CHLORIDE 107 mmol/L (98-107); CREATININE 1.62 mg/dl (0.60-1.40); GLUCOSE 305 mg/dl (70-99); MAGNESIUM 1.8 mg/dl (1.8-2.4); POTASSIUM 2.8 mmol/L (3.5-5.1); SODIUM 143 mmol/L (136-145)
[2017-03-24 17:56] LABS: PHOSPHORUS 1.9 mg/dl (2.5-4.9)
[2017-03-24 18:01] LABS: BETA-HYDROXYBUTYRATE 6.47 mg/dL (0.2-2.81)
[2017-03-24 18:02] LABS: BLOOD UREA NITROGEN 19 mg/dl (7-18)
[2017-03-24 18:25] LABS: ISTAT ARTERIAL BLOOD GAS HCO3 14 meq/L (19-24); ISTAT ARTERIAL BLOOD GAS PCO2 24 mmHg (35-46); ISTAT ARTERIAL BLOOD GAS PO2 121 mmHg (80-95); ISTAT ARTERIAL BLOOD GAS pH 7.36 (7.35-7.45); ISTAT CARBON DIOXIDE 14 mEq/l (24-31); ISTAT DELIVERY SYSTEM Ventilator; ISTAT FIO2 80 %; ISTAT PEEP 10; ISTAT RATE 16; ISTAT SITE Art Line; VE 8; Vt 500
[2017-03-24] MEDS ORDERED: INSULIN HUMAN REGULAR IV BOLUS 2 UNIT in SYRINGE 0 ML IV SCH (18:30)
--- NOTE | 2017-03-24 18:32 | Procedure Note ---
Procedure Note Procedure Date Mar 24, 2017. Procedure Description Procedure Name: LEFT radial arterial line Procedure time out: side/site verified, patient ID confirmed, correct procedure Consent obtained: written (obtained from patient's son) Time of procedure: 18:00 Performed by: attending Indications: diagnostic Contraindications: other (recent cardiac cath on Integrilin) Description: The patient's wrist was prepped with ChloraPrep and draped in sterile fashion. Using dynamic ultrasound guidance the left radial artery was visualized and a 20 -gauge Angiocath was placed percutaneously via modified Seldinger technique into the left radial artery. No anesthesia was utilized there was no response from the patient during this procedure. Complications: none Patient tolerated procedure: well Post-procedure vital signs: reviewed and stable Comments: Critical Care Medicine Point of Care Bedside Ultrasound Procedure: Procedural Ultrasound Procedure Date: 03/24/2017 Indication: Left arterial line placement Attending: David Metzger DO Resident/Physician Ink Maker: Not applicable Artery AND Vein visualized: Artery visualized Compressible Vein: Artery not compressible, pulsatile Guidewire or Short Catheter seen in vein prior to dilation: No dilatation, guidewire seen in artery Impression: Successful placement of a left arterial line Images obtained are saved for permanent record
[2017-03-24] MEDS: INSULIN REGULAR 250 UNITS in SODIUM CHLORIDE 0.9% 250ML 250 ML IV SCH (18:51)
[2017-03-24] MEDS ORDERED: THIAMINE HCL 100 MG/ML 2 ML VIAL IM ONE (19:04)
[2017-03-24] MEDS ORDERED: WTR IV SCH (19:15)
[2017-03-24] MEDS ORDERED: POTASSIUM CHLR IV SCH (19:15)
[2017-03-24] MEDS ORDERED: PREMIXED WATER IV SCH (19:15)
[2017-03-24] MEDS: POTASSIUM CHLR 10MEQ / WTR IV SCH ×3 (19:17→22:03)
[2017-03-24] MEDS ORDERED: EPTIFIBATIDE INJ 75 MG PREMIXED IV SCH ×2 (19:30→20:45)
[2017-03-24 19:42] LABS: URINE APPEARANCE CLOUDY (CLEAR); URINE BILIRUBIN NEG (NEG); URINE COLOR YELLOW; URINE NITRITE NEG (NEG); URINE PH 5.5 (4.5-7.5); URINE SPECIFIC GRAVITY 1.038 (1.000-1.030); UROBILINOGEN NEG (NEG); ZZURINE CULT IF INDIC CATH YES
[2017-03-24] MEDS: AMIODARONE / D5W 200 ML IV SCH (19:44)
[2017-03-24 19:45] LABS: MANUAL MICROSCOPIC REQUIRED? NO; REVIEW REQ? YES
[2017-03-24 19:51] LABS: HEMATOCRIT 36.2 % (42-52); MEAN CELL VOLUME 91.6 fL (80-100); MEAN CORPUSCULAR HEMOGLOBIN 31.1 pg (25-34); MEAN PLATELET VOLUME 10.5 fL (7.4-10.4); PLATELET COUNT 221 K/uL (130-400); RED BLOOD COUNT 3.95 M/uL (4.7-6.1); WHITE BLOOD COUNT 24.53 K/uL (4.8-10.8)
[2017-03-24 19:55] LABS: URINE PATH CASTS 5-10 GRANULAR CASTS /lpf (0)
[2017-03-24 20:04] LABS: BENZODIAZEPINE, URINE NEG (NEG); COCAINE,URINE NEG (NEG); PHENCYCLIDINE, URINE NEG (NEG)
[2017-03-24] MEDS: PANTOprazole INJ 40 MG in SYRINGE 0 ML IV SCH (20:04)
[2017-03-24 20:08] LABS: BLOOD UREA NITROGEN 24 mg/dl (7-18); BUN/CREATININE RATIO 12.9 (10-20); CALCIUM 6.6 mg/dl (8.5-10.1); CARBON DIOXIDE 14 mmol/L (21-32); CHLORIDE 110 mmol/L (98-107); CREATININE 1.89 mg/dl (0.60-1.40); GLUCOSE 302 mg/dl (70-99); MAGNESIUM 1.8 mg/dl (1.8-2.4); PHOSPHORUS 1.6 mg/dl (2.5-4.9); SODIUM 143 mmol/L (136-145)
[2017-03-24 20:09] LABS: INR 1.1 (0.9-1.1); PARTIAL THROMBOPLASTIN RATIO 2.1; PROTHROMBIN TIME (PATIENT) 12.3 SECONDS (9.0-12.0)
[2017-03-24 20:12] LABS: BASO % 0.2 %; BASO ABS # 0.04 K/uL (0-0.2); COMPLETE YES; ECHINOCYTES 2+; EOS % 0.2 %; IG% 0.7 %; LYMPH % 10.6 %; LYMPH ABS # 2.59 K/uL (1.2-3.4); MONO % 6.3 %
[2017-03-24 20:17] LABS: BETA-HYDROXYBUTYRATE 7.08 mg/dL (0.2-2.81)
[2017-03-24 20:47] LABS: ISTAT ARTERIAL BLOOD GAS HCO3 11 meq/L (19-24); ISTAT ARTERIAL BLOOD GAS PCO2 21 mmHg (35-46); ISTAT ARTERIAL BLOOD GAS PO2 99 mmHg (80-95); ISTAT CARBON DIOXIDE 12 mEq/l (24-31); ISTAT DELIVERY SYSTEM Ventilator; ISTAT FIO2 70 %; ISTAT PEEP 10; ISTAT RATE 12; ISTAT SITE Art Line; VE 6; Vt 500
[2017-03-24] MEDS ORDERED: CALCIUM GLUCONATE 10% 1,000 MG in SODIUM CHLORIDE 0.9% 50ML 50 ML IV STA (21:00)
[2017-03-24] MEDS ORDERED: SODIUM PHOSPHATE 3 MMOL/1 ML INFUSION IV STA (21:00)
[2017-03-24] MEDS ORDERED: CALCIUM GLUCONATE 10% 1,000 MG in SODIUM CHLORIDE 0.9% 50ML 50 ML IV SCH (21:30)
[2017-03-24] MEDS ORDERED: SODIUM PHOSPHATE INJ 21 MMOL in SODIUM CHLORIDE 0.9% 500ML 500 ML IV ONE (21:30)
[2017-03-24] MEDS ORDERED: Integrelin infusion --> STOP ORDER ONE (23:00)
[2017-03-24 23:55] LABS: HEMATOCRIT 34.9 % (42-52); MEAN CELL VOLUME 91.1 fL (80-100); MEAN CORPUSCULAR HEMOGLOBIN 30.5 pg (25-34); MEAN CORPUSCULAR HGB CONC 33.5 g/dl (32-36); MEAN PLATELET VOLUME 10.6 fL (7.4-10.4); PLATELET COUNT 223 K/uL (130-400); RED BLOOD COUNT 3.83 M/uL (4.7-6.1); WHITE BLOOD COUNT 21.84 K/uL (4.8-10.8)
[2017-03-25] VITALS (28 sets, daily range): BP systolic 88–149; BP diastolic 41–90; PULSE 57–77; TEMP 33.3–36.2; O2SAT 90–100
[2017-03-25 00:01] LABS: ISTAT ARTERIAL BLOOD GAS HCO3 13 meq/L (19-24); ISTAT ARTERIAL BLOOD GAS PCO2 20 mmHg (35-46); ISTAT ARTERIAL BLOOD GAS PO2 93 mmHg (80-95); ISTAT ARTERIAL BLOOD GAS pH 7.39 (7.35-7.45); ISTAT CARBON DIOXIDE 13 mEq/l (24-31); ISTAT DELIVERY SYSTEM Ventilator; ISTAT FIO2 60 %; ISTAT PEEP 10; ISTAT RATE 12; ISTAT SITE Art Line; VE 6; Vt 500
[2017-03-25 00:05] LABS: INR 1.1 (0.9-1.1); PARTIAL THROMBOPLASTIN RATIO 1.1; PROTHROMBIN TIME (PATIENT) 11.9 SECONDS (9.0-12.0)
[2017-03-25] MEDS ORDERED: NURSING VERBAL MED ORDER STA (00:11)
[2017-03-25 00:12] LABS: BLOOD UREA NITROGEN 27 mg/dl (7-18); BUN/CREATININE RATIO 13.9 (10-20); CALCIUM 7.1 mg/dl (8.5-10.1); CARBON DIOXIDE 13 mmol/L (21-32); CHLORIDE 111 mmol/L (98-107); CREATININE 1.95 mg/dl (0.60-1.40); GLUCOSE 194 mg/dl (70-99); MAGNESIUM 1.7 mg/dl (1.8-2.4); POTASSIUM 2.9 mmol/L (3.5-5.1); SODIUM 144 mmol/L (136-145)
[2017-03-25] MEDS: POTASSIUM CHLR 10MEQ / WTR IV SCH ×3 (00:19→01:46)
[2017-03-25] MEDS: NORMOSOL R 1,000 ML IV SCH (00:28)
[2017-03-25 00:30] LABS: BASO % 0.1 %; BASO ABS # 0.02 K/uL (0-0.2); COMPLETE YES; ECHINOCYTES 2+; EOS % 0.1 %; LYMPH % 10.2 %; LYMPH ABS # 2.23 K/uL (1.2-3.4); NEUT % 81.6 %; VACUOLIZATION 1+
[2017-03-25] MEDS ORDERED: NORMOSOL R 1,000 ML IV SCH ×2 (00:30→01:30)
[2017-03-25 00:34] LABS: PHOSPHORUS 2.5 mg/dl (2.5-4.9)
--- NOTE | 2017-03-25 00:44 | History and Physical ---
History & Physical Date & Time of Service: Mar 24, 2017 Chief Complaint: Cardiac Arrest Primary Care Physician: No Doctor, Assigned History of Present Illness Source: hospital records, other (ER MD reports) Pt is a 66 yo male who presented to the hospital via EMS after having chest pain followed by cardiac arrest. He was resuscitated at home first by a neighbor , and then by EMS. He had ROSC after approx 20 min at home, then arrested again en route to the hospital and again achieved ROSC. He had a PTX on the right on arrival with placement of a chest tube. He was stabilized and taken [facility] where he had a stent placed to the LAD. He was then transported to the ICU and is undergoing hypothermic protocol at the time I saw him. Past Medical/Surgical History Medical Problems: (1) Anemia Status: Chronic (2) Herniated disc Status: Chronic (3) Hx of transfusion of packed red blood cells Status: Resolved (4) Hx of ulcer disease Status: Resolved (5) Kidney stones Status: Resolved (6) Obesity Status: Chronic (7) Umbilical hernia Status: Chronic Uulcerative colitis Surgical Problems: (1) History of lithotripsy Family History FH: cancer FH: lung disease Kidney disease Kidney stones Social History Smoking Status: Never Smoker Smokeless Tobacco Use: No Alcohol Use: socially (rare) Drug Use: none Marital Status: in relationship 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) Allergies Coded Allergies: Tomato (Verified Allergy, Intermediate, HIVES, 10/12/13) Home Medications Unable to Obtain Active Prescriptions or Reported Meds Review of Systems unobtainable due to altered MS Physical Exam Vital Signs Date Time Temp Pulse Resp B/P (MAP) Pulse Ox O2 Delivery O2 Flow Rate FiO2 03/25/17 00:05 60 03/24/17 23:00 32.5 84 15 101/74 (83) 96 Mechanical Ventilator 60 113/72 (86) 03/24/17 22:00 32.0 76 15 104/70 (81) 99 60 90/79 (83) 03/24/17 21:00 32.2 72 14 84/64 (71) 99 98/67 (77) 03/24/17 20:36 60 03/24/17 20:00 99 Mechanical Ventilator 80 03/24/17 20:00 32.7 84 14 79/53 (62) 99 Mechanical Ventilator 80 94/57 (69) 03/24/17 20:00 80 03/24/17 19:48 80 03/24/17 19:20 32.9 84 14 73/51 (58) 99 Mechanical Ventilator 80 84/54 (64) 03/24/17 18:17 74 19 109/70 (89) 80/53 03/24/17 18:15 88 24 (79) 115/67 03/24/17 18:00 93 24 (84) 127/69 03/24/17 17:46 88 24 81/64 (70) 03/24/17 17:45 98 24 03/24/17 17:32 92 24 78/56 (58) 03/24/17 17:30 85 24 03/24/17 17:15 91 22 100 03/24/17 17:03 117/63 (77) 03/24/17 16:55 80 03/24/17 16:32 94 22 126/56 (96) 03/24/17 16:30 94 22 03/24/17 16:16 107 16 108/60 (84) 100 03/24/17 16:15 98 16 100 03/24/17 16:10 91 20 91/78 (88) 100 03/24/17 16:00 132 20 93 03/24/17 15:54 87 20 111/60 (63) 03/24/17 15:45 32.7 86 16 127/85 97 Mechanical Ventilator 03/24/17 15:25 81 16 127/85 (99) 98 Mechanical Ventilator 100 03/24/17 15:15 81 16 131/85 (100) 98 Mechanical Ventilator 100 03/24/17 13:15 137 03/24/17 13:14 138 03/24/17 13:13 34.6 140 16 Mechanical Ventilator 03/24/17 13:02 64 18 42/28 93 Mechanical Ventilator 15.0 03/24/17 12:57 70 14 37/27 95 Mechanical Ventilator 15.0 03/24/17 12:55 70 21 43/24 94 Mechanical Ventilator 15.0 03/24/17 12:54 100 03/24/17 12:49 84 03/24/17 12:48 87 14 89 Mechanical Ventilator 03/24/17 12:42 Mechanical Ventilator 15.0 03/24/17 12:42 Mechanical Ventilator 15.0 03/24/17 12:42 Mechanical Ventilator 15.0 General Appearance: no apparent distress (intubated and sedated), + obese Head: normocephalic, atraumatic ENT: + pertinent finding (ET tube in place) Neck: trachea midline Respiratory/Chest: lungs clear, normal breath sounds, no respiratory distress, no accessory muscle use, + pertinent finding (right sided chest tube with bloody drainage from right anterior axillary line) Cardiovascular: no edema, no gallop, no murmur, normal peripheral pulses, + irregularly irregular Abdomen/GI: normal bowel sounds, non tender, soft, no organomegaly, + hernia ( small umbilical hernia easily reducible) Genitourinary - Male: normal male genitalia (with Ayala in place) Extremities/Musculoskelatal: no pedal edema Neurologic/Psych: + pertinent finding (sedated) Skin: normal color, warm/dry, no rash Diagnostics Laboratory Results Results Past 24 Hours Test 03/24/17 12:53 03/24/17 12:55 03/24/17 12:57 03/24/17 12:58 Range/Units Bedside Glucose 256 70-99 mg/dl White Blood Count 11.29 4.8-10.8 K/uL Red Blood Count 3.49 4.7-6.1 M/uL Hemoglobin 10.4 14.0-18.0 g/dL Hematocrit 33.4 42-52 % Mean Corpuscular Volume 95.7 80-100 fL Mean Corpuscular Hemoglobin 29.8 25-34 pg Mean Corpuscular Hemoglobin Concent 31.1 32-36 g/dl Platelet Count 183 130-400 K/uL Mean Platelet Volume 10.9 7.4-10.4 fL Neutrophils (%) (Auto) 63.4 % Lymphocytes (%) (Auto) 26.0 % Monocytes (%) (Auto) 6.0 % Eosinophils (%) (Auto) 2.3 % Basophils (%) (Auto) 0.4 % Neutrophils # (Auto) 7.17 1.4-6.5 K/uL Lymphocytes # (Auto) 2.93 1.2-3.4 K/uL Monocytes # (Auto) 0.68 0.11-0.59 K/uL Eosinophils # (Auto) 0.26 0-0.5 K/uL Basophils # (Auto) 0.04 0-0.2 K/uL RDW Standard Deviation 50.3 36.4-46.3 fL RDW Coefficient of Variation 14.5 11.5-14.5 % Immature Granulocyte % (Auto) 1.9 % Immature Granulocyte # (Auto) 0.21 0.00-0.02 K/uL Prothrombin Time 12.0 9.0-12.0 SECONDS Prothromb Time International Ratio 1.1 0.9-1.1 Activated Partial Thromboplast Time 31.3 21.0-31.0 SECONDS Partial Thromboplastin Ratio 1.2 Sodium Level 149 136-145 mmol/L Potassium Level 3.0 3.5-5.1 mmol/L Chloride Level 117 98-107 mmol/L Carbon Dioxide Level 13 21-32 mmol/L Anion Gap 19.0 3-11 mmol/L Blood Urea Nitrogen 12 7-18 mg/dl Creatinine 0.98 0.60-1.40 mg/dl Estimated GFR () 92.7 Estimated GFR (Non- 80.0 BUN/Creatinine Ratio 12.4 10-20 Random Glucose 203 70-99 mg/dl Calcium Level 5.3 8.5-10.1 mg/dl Phosphorus Level 5.3 2.5-4.9 mg/dl Magnesium Level 1.4 1.8-2.4 mg/dl Total Bilirubin 0.3 0.2-1 mg/dl Direct Bilirubin 0.1 0-0.2 mg/dl Aspartate Amino Transf (AST/SGOT) 100 15-37 U/L Alanine Aminotransferase (ALT/SGPT) 78 12-78 U/L Alkaline Phosphatase 39 45-117 U/L Total Creatine Kinase 264 39-308 U/L Creatine Kinase MB 6.9 0.5-3.6 ng/ml Creatine Kinase MB Ratio 2.6 0-3.0 Troponin I 0.492 0-0.045 ng/ml Pro-B-Type Natriuretic Peptide 196 0-900 pg/ml Total Protein 3.7 6.4-8.2 gm/dl Albumin 1.7 3.4-5.0 gm/dl Lipase 268 73-393 U/L Thyroid Stimulating Hormone (TSH) 10.900 0.300-4.500 uIu/ml Bedside Troponin I 0.350 0-0.045 ng/ml Bedside Lactic Acid Venous 9.43 0.90-1.70 mmol/L Test 03/24/17 13:02 03/24/17 13:34 03/24/17 14:24 03/24/17 15:04 Range/Units Bedside Hemoglobin 8.8 14.0-18.0 g/dl Bedside Hematocrit 26 42-52 % Bedside Sodium 146 135-144 mEq/L Bedside Potassium 2.8 3.3-5.0 mEq/L Bedside Chloride 115 101-112 mEq/L Bedside Total CO2 14 24-31 mEq/l Anion Gap 22.0 16-25 mmol/L Bedside Blood Urea Nitrogen 10 7-18 mg/dl Bedside Creatinine 0.9 0.6-1.3 mg/dl Bedside Glucose (other) 195 70-99 mg/dl Bedside Ionized Calcium (Lizy) 0.83 1.12-1.32 mmol/l Bedside Blood Gas pH (LAB) 7.12 7.31 7.35-7.45 Bedside Blood Gas pCO2 (LAB) 63 33 35-46 mmHg Bedside Blood Gas pO2 (LAB) 150 197 80-95 mmHg Bedside Blood Gas HCO3 (LAB) 20 17 19-24 meq/L Bedside Blood Gas Total CO2 22 18 24-31 mEq/l Bedside Blood Gas Base Excess (LAB) -9.0 -9.0 -9-1.8 meq/L Bedside Blood Gas O2 Saturation 98.0 100.0 90-95 % Kaolin Activated Coagulation Time 202 94-140 SECONDS Test 03/24/17 15:07 03/24/17 17:14 03/24/17 18:11 03/24/17 19:30 Range/Units Kaolin Activated Coagulation Time 230 94-140 SECONDS White Blood Count 21.35 4.8-10.8 K/uL Red Blood Count 4.11 4.7-6.1 M/uL Hemoglobin 12.5 14.0-18.0 g/dL Hematocrit 38.4 42-52 % Mean Corpuscular Volume 93.4 80-100 fL Mean Corpuscular Hemoglobin 30.4 25-34 pg Mean Corpuscular Hemoglobin Concent 32.6 32-36 g/dl Platelet Count 240 130-400 K/uL Mean Platelet Volume 10.8 7.4-10.4 fL Neutrophils (%) (Auto) 82.5 % Lymphocytes (%) (Auto) 11.2 % Monocytes (%) (Auto) 4.8 % Eosinophils (%) (Auto) 0.6 % Basophils (%) (Auto) 0.2 % Neutrophils # (Auto) 17.61 1.4-6.5 K/uL Lymphocytes # (Auto) 2.39 1.2-3.4 K/uL Monocytes # (Auto) 1.02 0.11-0.59 K/uL Eosinophils # (Auto) 0.13 0-0.5 K/uL Basophils # (Auto) 0.04 0-0.2 K/uL RDW Standard Deviation 49.7 36.4-46.3 fL RDW Coefficient of Variation 14.7 11.5-14.5 % Immature Granulocyte % (Auto) 0.7 % Immature Granulocyte # (Auto) 0.16 0.00-0.02 K/uL Echinocytes 2+ Prothrombin Time 12.8 9.0-12.0 SECONDS Prothromb Time International Ratio 1.2 0.9-1.1 Activated Partial Thromboplast Time 102.4 21.0-31.0 SECONDS Partial Thromboplastin Ratio 3.9 Sodium Level 143 136-145 mmol/L Potassium Level 2.8 3.5-5.1 mmol/L Chloride Level 107 98-107 mmol/L Carbon Dioxide Level 23 21-32 mmol/L Anion Gap 13.0 3-11 mmol/L Blood Urea Nitrogen 19 7-18 mg/dl Creatinine 1.62 0.60-1.40 mg/dl Estimated GFR () 50.5 Estimated GFR (Non- 43.6 BUN/Creatinine Ratio 11.7 10-20 Random Glucose 305 70-99 mg/dl Lactic Acid Level 8.0 0.4-2.0 mmol/L Calcium Level 6.6 8.5-10.1 mg/dl Phosphorus Level 1.9 2.5-4.9 mg/dl Magnesium Level 1.8 1.8-2.4 mg/dl Troponin I 59.400 0-0.045 ng/ml Beta-Hydroxybutyric Acid 6.47 0.2-2.81 mg/dL Blood Gas Sample Site Art Line Bedside Blood Gas pH (LAB) 7.36 7.35-7.45 Bedside Blood Gas pCO2 (LAB) 24 35-46 mmHg Bedside Blood Gas pO2 (LAB) 121 80-95 mmHg Bedside Blood Gas HCO3 (LAB) 14 19-24 meq/L Bedside Blood Gas Total CO2 14 24-31 mEq/l Bedside Blood Gas Base Excess (LAB) -12.0 -9-1.8 meq/L Bedside Blood Gas O2 Saturation 99.0 90-95 % Amrik Test NA Oxygen Delivery Device Ventilator Bedside Oxygen Rate (breaths/min) 16 Blood Gas Minute Ventilation 8 Bedside FiO2 80 % Blood Gas Tidal Volume 500 Blood Gas PEEP 10 Urine Color YELLOW Urine Appearance CLOUDY CLEAR Urine pH 5.5 4.5-7.5 Urine Specific Elida 1.038 1.000-1.030 Urine Protein 2+ NEG Urine Glucose (UA) 2+ NEG Urine Ketones TRACE NEG Urine Occult Blood 3+ NEG Urine Nitrite NEG NEG Urine Bilirubin NEG NEG Urine Urobilinogen NEG NEG Urine Leukocyte Esterase NEG NEG Urine WBC (Auto) 10-30 0-5 /hpf Urine RBC (Auto) 0-4 0-4 /hpf Urine Hyaline Casts (Auto) 5-10 0-5 /lpf Urine Epithelial Cells (Auto) 5-10 0-5 /lpf Urine Bacteria (Auto) NEG NEG Urine Renal Epithelial Cells 0-5 0-5 /lpf Urine Crystals AMORPHOUS SEDIMENT NONE PRSENT Urine Pathogenic Casts 5-10 GRANULAR CASTS 0 /lpf Urine Yeast (Auto) NONE PRSENT Urine Opiates Screen NEG NEG Urine Methadone, Qualitative NEG NEG Urine Barbiturates NEG NEG Urine Phencyclidine (PCP) Level NEG NEG Ur Amphetamine/Methamphetamine NEG NEG MDMA (Ecstasy) Screen NEG NEG Urine Benzodiazepines Screen NEG NEG Urine Cocaine Metabolite NEG NEG Urine Marijuana (THC) NEG NEG Test 03/24/17 19:36 03/24/17 20:15 03/24/17 20:36 03/24/17 21:10 Range/Units White Blood Count 24.53 4.8-10.8 K/uL Red Blood Count 3.95 4.7-6.1 M/uL Hemoglobin 12.3 14.0-18.0 g/dL Hematocrit 36.2 42-52 % Mean Corpuscular Volume 91.6 80-100 fL Mean Corpuscular Hemoglobin 31.1 25-34 pg Mean Corpuscular Hemoglobin Concent 34.0 32-36 g/dl Platelet Count 221 130-400 K/uL Mean Platelet Volume 10.5 7.4-10.4 fL Neutrophils (%) (Auto) 82.0 % Lymphocytes (%) (Auto) 10.6 % Monocytes (%) (Auto) 6.3 % Eosinophils (%) (Auto) 0.2 % Basophils (%) (Auto) 0.2 % Neutrophils # (Auto) 20.14 1.4-6.5 K/uL Lymphocytes # (Auto) 2.59 1.2-3.4 K/uL Monocytes # (Auto) 1.54 0.11-0.59 K/uL Eosinophils # (Auto) 0.06 0-0.5 K/uL Basophils # (Auto) 0.04 0-0.2 K/uL RDW Standard Deviation 48.8 36.4-46.3 fL RDW Coefficient of Variation 14.5 11.5-14.5 % Immature Granulocyte % (Auto) 0.7 % Immature Granulocyte # (Auto) 0.16 0.00-0.02 K/uL Echinocytes 2+ Prothrombin Time 12.3 9.0-12.0 SECONDS Prothromb Time International Ratio 1.1 0.9-1.1 Activated Partial Thromboplast Time 54.8 21.0-31.0 SECONDS Partial Thromboplastin Ratio 2.1 Sodium Level 143 136-145 mmol/L Potassium Level 3.0 3.5-5.1 mmol/L Chloride Level 110 98-107 mmol/L Carbon Dioxide Level 14 21-32 mmol/L Anion Gap 19.0 3-11 mmol/L Blood Urea Nitrogen 24 7-18 mg/dl Creatinine 1.89 0.60-1.40 mg/dl Estimated GFR () 41.9 Estimated GFR (Non- 36.2 BUN/Creatinine Ratio 12.9 10-20 Random Glucose 302 70-99 mg/dl Calcium Level 6.6 8.5-10.1 mg/dl Phosphorus Level 1.6 2.5-4.9 mg/dl Magnesium Level 1.8 1.8-2.4 mg/dl Beta-Hydroxybutyric Acid 7.08 0.2-2.81 mg/dL Bedside Glucose (other) 282 252 70-99 mg/dl Blood Gas Sample Site Art Line Bedside Blood Gas pH (LAB) 7.30 7.35-7.45 Bedside Blood Gas pCO2 (LAB) 21 35-46 mmHg Bedside Blood Gas pO2 (LAB) 99 80-95 mmHg Bedside Blood Gas HCO3 (LAB) 11 19-24 meq/L Bedside Blood Gas Total CO2 12 24-31 mEq/l Bedside Blood Gas Base Excess (LAB) -16.0 -9-1.8 meq/L Bedside Blood Gas O2 Saturation 98.0 90-95 % Amrik Test NA Oxygen Delivery Device Ventilator Bedside Oxygen Rate (breaths/min) 12 Blood Gas Minute Ventilation 6 Bedside FiO2 70 % Blood Gas Tidal Volume 500 Blood Gas PEEP 10 Test 03/24/17 22:15 03/24/17 23:08 03/24/17 23:41 03/24/17 23:50 Range/Units Bedside Glucose (other) 222 205 70-99 mg/dl White Blood Count 21.84 4.8-10.8 K/uL Red Blood Count 3.83 4.7-6.1 M/uL Hemoglobin 11.7 14.0-18.0 g/dL Hematocrit 34.9 42-52 % Mean Corpuscular Volume 91.1 80-100 fL Mean Corpuscular Hemoglobin 30.5 25-34 pg Mean Corpuscular Hemoglobin Concent 33.5 32-36 g/dl Platelet Count 223 130-400 K/uL Mean Platelet Volume 10.6 7.4-10.4 fL RDW Standard Deviation 48.2 36.4-46.3 fL RDW Coefficient of Variation 14.5 11.5-14.5 % Prothrombin Time 11.9 9.0-12.0 SECONDS Prothromb Time International Ratio 1.1 0.9-1.1 Activated Partial Thromboplast Time 28.7 21.0-31.0 SECONDS Partial Thromboplastin Ratio 1.1 Sodium Level 144 136-145 mmol/L Potassium Level 2.9 3.5-5.1 mmol/L Chloride Level 111 98-107 mmol/L Carbon Dioxide Level 13 21-32 mmol/L Anion Gap 20.0 3-11 mmol/L Blood Urea Nitrogen 27 7-18 mg/dl Creatinine 1.95 0.60-1.40 mg/dl Estimated GFR () 40.4 Estimated GFR (Non- 34.8 BUN/Creatinine Ratio 13.9 10-20 Random Glucose 194 70-99 mg/dl Calcium Level 7.1 8.5-10.1 mg/dl Magnesium Level 1.7 1.8-2.4 mg/dl Blood Gas Sample Site Art Line Bedside Blood Gas pH (LAB) 7.39 7.35-7.45 Bedside Blood Gas pCO2 (LAB) 20 35-46 mmHg Bedside Blood Gas pO2 (LAB) 93 80-95 mmHg Bedside Blood Gas HCO3 (LAB) 13 19-24 meq/L Bedside Blood Gas Total CO2 13 24-31 mEq/l Bedside Blood Gas Base Excess (LAB) -13.0 -9-1.8 meq/L Bedside Blood Gas O2 Saturation 98.0 90-95 % Amrik Test NA Oxygen Delivery Device Ventilator Bedside Oxygen Rate (breaths/min) 12 Blood Gas Minute Ventilation 6 Bedside FiO2 60 % Blood Gas Tidal Volume 500 Blood Gas PEEP 10 Microbiology Results 03/24/17 MRSA DNA Surveillance Screen - Final, Complete Specimen Negative for MRSA by DNA Probe 03/24/17 Urine Culture, Received Pending Diagnostic Radiology CXRs reviewed CT spine and head reviewed EKG NSR, ST elevation inferior and anterior leads on initial ECG Impression Assessment and Plan Pt is a 66 yo male with a h/o UC, who presented to the hospital via EMS after having chest pain followed by cardiac arrest. He was resuscitated at home first by a neighbor, and then by EMS. He had ROSC after approx 20 min at home, then arrested again en route to the hospital and again achieved ROSC. He had a PTX on the right on arrival with placement of a chest tube. He was stabilized and taken to the [facility] where he had a stent placed to the LAD. He was then transported to the ICU and is undergoing hypothermic protocol. STEMI/Cardiac arrest/CAD s/p LIN to LAD/Atrial fibrillation-> was on integrilin gtt, loaded with ASA and Plavix. Now on therapeutic hypothermia protocol -Admit to ICU for continued monitoring -continue ASA, Plavix -Appreciate Cardiology management -Therapeutic hypothermia per ICU team -Continue amiodarone infusion for A-fib -Trend troponins until peak -Check Echo -High-dose statin -Appreciate [employer] Management Hypokalemia/Hypocalcemia/Hypophosphatemia/Metabolic acidosis/DIANA--> all in setting of cardiac arrest -replace lytes as per ICU team -follow labs Right sided PTX s/p likely traumatic PTX from chest compressions/rib fracture- chest tube in place -chest tube management as per ICU Hyperglycemia- in setting of high stress -insulin gtt, accuchecks -check A1C in AM to screen for DMII Elevated TSH-TSH 10 on admission -follow in non acute setting Ulcerative colitis-no current issues Proph-SCDs Dispo-FULL CODE Advanced Directives Existing Living Will: No Existing Power of Materials And Processes Manager: No VTE Prophylaxis VTE Risk Assessment Done? Y/N: Yes Risk Level: High Given or contraindicated: SCD's
[2017-03-25] MEDS: MAGNESIUM SULFATE 1GM / D5W 1 GM in PREMIXED IN D5W 100 ML IV SCH ×2 (01:10→01:45)
[2017-03-25] MEDS ORDERED: NORMOSOL R 1,000 ML IV STA (02:12)
[2017-03-25] MEDS: POTASSIUM CHLR 10 MEQ / WTR 10 MEQ in PREMIXED WATER 100 ML IV SCH ×4 (02:42→05:03)
[2017-03-25 04:05] LABS: HEMATOCRIT 29.9 % (42-52); MEAN CELL VOLUME 89.8 fL (80-100); MEAN CORPUSCULAR HEMOGLOBIN 30.9 pg (25-34); MEAN CORPUSCULAR HGB CONC 34.4 g/dl (32-36); MEAN PLATELET VOLUME 10.5 fL (7.4-10.4); PLATELET COUNT 190 K/uL (130-400); RED BLOOD COUNT 3.33 M/uL (4.7-6.1); WHITE BLOOD COUNT 19.09 K/uL (4.8-10.8)
[2017-03-25 04:10] LABS: ISTAT ARTERIAL BLOOD GAS HCO3 15 meq/L (19-24); ISTAT ARTERIAL BLOOD GAS PCO2 24 mmHg (35-46); ISTAT ARTERIAL BLOOD GAS PO2 126 mmHg (80-95); ISTAT ARTERIAL BLOOD GAS pH 7.42 (7.35-7.45); ISTAT CARBON DIOXIDE 16 mEq/l (24-31); ISTAT DELIVERY SYSTEM Ventilator; ISTAT FIO2 60 %; ISTAT PEEP 5; ISTAT RATE 12; ISTAT SITE Art Line; VE 6; Vt 500
[2017-03-25 04:23] LABS: INR 1.1 (0.9-1.1); PARTIAL THROMBOPLASTIN RATIO 1.1; PROTHROMBIN TIME (PATIENT) 11.4 SECONDS (9.0-12.0)
[2017-03-25 04:46] LABS: CALCIUM 6.6 mg/dl (8.5-10.1); CHOLESTEROL/HDL RATIO 2.3; CREATININE 1.96 mg/dl (0.60-1.40); MAGNESIUM 2.3 mg/dl (1.8-2.4); PHOSPHORUS 2.4 mg/dl (2.5-4.9); POTASSIUM 3.8 mmol/L (3.5-5.1)
[2017-03-25 04:51] LABS: BASO % 0.1 %; BASO ABS # 0.02 K/uL (0-0.2); COMPLETE YES; ECHINOCYTES 2+; EOS % 0.1 %; IG% 0.5 %; LYMPH ABS # 1.91 K/uL (1.2-3.4); MONO % 10.1 %; NEUT % 79.2 %
[2017-03-25] MEDS ORDERED: CALCIUM GLUCONATE 10% 1,000 MG in SODIUM CHLORIDE 0.9% 50ML 50 ML IV STA (05:49)
[2017-03-25] MEDS: POT PHOSPHATE MONOBASIC W/ SOD TAB PO SCH ×3 (06:02→13:48)
[2017-03-25 06:32] LABS: ESTIMATED AVERAGE GLUCOSE 117 mg/dl; HA1C FLAG Normal (Normal)
[2017-03-25 06:52] LABS: BUN/CREATININE RATIO 14.5 (10-20); CALCIUM 7.3 mg/dl (8.5-10.1); CREATININE 2.15 mg/dl (0.60-1.40); POTASSIUM 4.2 mmol/L (3.5-5.1)
--- NOTE | 2017-03-25 06:55 | DIAGNOSTIC IMAGING REPORT ---
CHEST ONE VIEW PORTABLE HISTORY: 66 years-old Male inubaiton respiratory failure. Status post intubation COMPARISON: Chest radiograph 03/24/2017 TECHNIQUE: Portable upright AP view of the chest FINDINGS: Cardiac silhouette is again mildly enlarged and unchanged. Small-caliber right-sided chest tube is again seen in stable positioning. No definite pneumothorax identified. Enteric tube courses below the level the diaphragm coiling within the region of the gastric cardia. An endotracheal tube is present with distal tip terminating 3.6 cm superior to the genaro. Mildly progressed mixed interstitial and alveolar opacities are seen throughout the bilateral lungs. Blunting of the costophrenic angles is suspicious for trace pleural effusions. There is improved aeration of the left lung base from comparison. Bones are grossly intact. IMPRESSION: 1. Mildly progressed mixed interstitial and alveolar opacities throughout the bilateral lungs suggesting pulmonary edema. Intermixed atelectasis and/or pneumonia would be difficult to exclude. 2. Endotracheal tube terminates above the genaro. Enteric tube courses below the diaphragm. 3. No pneumothorax identified. The above report was generated using voice recognition software. It may contain grammatical, syntax or spelling errors. Electronically signed by: James Hernandez M.D. 03/25/2017 6:54 AM Dictated Date/Time: 03/25/2017 6:49 AM
--- NOTE | 2017-03-25 07:11 | CARDIOLOGY CONSULTATION ---
DATE OF CONSULTATION: 03/24/2017 CONSULTATION REQUESTED BY: Dr. Phipps REASON FOR CONSULTATION: Heart alert/cardiac arrest, suspected STEMI. HISTORY OF PRESENT ILLNESS: Mr. Arora is a 66-year-old man with no significant past cardiac history, who was brought to the Emergency Department today in the setting of cardiac arrest. Per ED documentation and report from EMS, the patient had been complaining of substernal chest pain this morning at approximately 05:30 a.m. Significant other had attempted to convince the patient to come to the ED, but he had declined. He founds to be, several hours later, suffered a cardiac arrest and fell striking the floor. EMS was activated and CPR was given by a neighbor. Upon EMS arrival, the patient received multiple rounds of epinephrine and was defibrillated questionably 4 times. After approximately 20 minutes of CPR, he had return of spontaneous circulation and was transported to the [facility] Emergency Department. En route, he was given 1 additional round of epinephrine. In the ED, the patient had an initial EKG, which showed subtle inferior ST elevations as well as anterior ST depressions. He was hypotensive and placed on an epinephrine drip. He was noted to have a pneumothorax on the right, which was treated with a chest tube at the bedside. The patient had no spontaneous movements and was started on therapeutic hypothermia protocol before being transferred to the operations label clerk. In the operations label clerk, the patient was found to have [id number] diffuse mid LAD disease before and occlusion at the late mid segment of his LAD. He was treated with successful PCI with 3 drug-eluting stents to his LAD with post-procedure LEANNA-3 flow. Post completion of procedure, he was on 0.1 of norepinephrine and amiodarone infusion. He was maintaining MAPs in the 70s-80s and pH had improved to 7.31. PAST MEDICAL HISTORY: 1. History of anemia with questionable prior GI bleed. 2. Herniated disc. 3. Prior kidney stones, status post lithotripsy and prior urologic stenting. 4. Umbilical hernia. FAMILY HISTORY: Unable to be obtained. SOCIAL HISTORY: Per son, does not drink or smoke, is engaged. REVIEW OF SYSTEMS: Unable to be obtained. PHYSICAL EXAMINATION: VITAL SIGNS: Temperature with cooling 33 degrees, heart rate of 81, and blood pressure of 127/85. He is satting 100% on mechanical ventilator. GENERAL: The patient is intubated. He is making no real purposeful movement. HEENT: His pupils were partially dilated and fixed. LUNGS: Anteriorly were clear. CARDIAC: He was regular with no appreciable murmurs. ABDOMEN: Soft. EXTREMITIES: Cool. He had intact distal pulses. SKIN: Shows no rashes or lesions. He did have a post-procedure 7-Burkinan introducer in his right common femoral vein and a chest tube across his right chest wall anteriorly. LABORATORY DATA AND DIAGNOSTIC STUDIES: White blood cell count of 11.3, hemoglobin 10.4, and platelets of 183. Sodium of 146, potassium of 2.8, BUN of 10, and creatinine of 0.9. His point of care troponin was positive at 0.35. His most recent blood gas in the operations label clerk was 7.31/33/197 with a bicarbonate of 18. Chest x-ray post chest tube showed complete inflation of the right lung with minimal pulmonary infiltrates. Limited echocardiogram completed at the bedside showed underfilled LV with grossly preserved LV function and apical akinesis. IMPRESSION AND PLAN: 1. Cardiac arrest. 2. Anterior ST elevation myocardial infarction/occluded mid LAD. 3. Pneumothorax. 4. Anemia. Mr. Arora is now status post primary percutaneous coronary intervention for his occluded LAD with resulting cardiac arrest. Successful revascularization of LAD with good angiographic result. The patient had a prolonged down period before return of spontaneous circulation and long-term prognosis guarded. From a cardiac standpoint going forward, recommend continuation of Integrilin for the next 8 hours. He is to receive a clopidogrel load via an NG tube in the ICU. Continue on dual antiplatelet therapy likely indefinitely. A high intensity statin should be started if possible. Otherwise, from a hemodynamic standpoint, continue with aggressive IV fluids and vasopressors as needed. No signs of cardiac shock at present. We will plan to continue to follow while in the hospital. Please contact with any questions. MAGALY
[2017-03-25] MEDS: INSULIN ASPART 100 UNITS/ML 3 ML PEN SC SCH ×4 (08:00→21:00)
[2017-03-25 08:21] LABS: BASO % 0.1 %; BASO ABS # 0.02 K/uL (0-0.2); COMPLETE YES; HEMATOCRIT 30.6 % (42-52); IG% 0.2 %; LYMPH % 9.6 %; LYMPH ABS # 1.62 K/uL (1.2-3.4); MEAN CELL VOLUME 89.2 fL (80-100); MEAN CORPUSCULAR HEMOGLOBIN 30.9 pg (25-34); MEAN CORPUSCULAR HGB CONC 34.6 g/dl (32-36); MEAN PLATELET VOLUME 10.9 fL (7.4-10.4); MONO % 9.1 %; PLATELET COUNT 192 K/uL (130-400); RED BLOOD COUNT 3.43 M/uL (4.7-6.1); WHITE BLOOD COUNT 16.93 K/uL (4.8-10.8)
[2017-03-25 08:29] LABS: INR 1.1 (0.9-1.1); PARTIAL THROMBOPLASTIN RATIO 1.2; PROTHROMBIN TIME (PATIENT) 11.3 SECONDS (9.0-12.0)
[2017-03-25 08:41] LABS: BLOOD UREA NITROGEN 34 mg/dl (7-18); BUN/CREATININE RATIO 14.9 (10-20); CALCIUM 6.9 mg/dl (8.5-10.1); CARBON DIOXIDE 17 mmol/L (21-32); CHLORIDE 109 mmol/L (98-107); CREATININE 2.25 mg/dl (0.60-1.40); GLUCOSE 87 mg/dl (70-99); MAGNESIUM 2.2 mg/dl (1.8-2.4); POTASSIUM 4.5 mmol/L (3.5-5.1); SODIUM 141 mmol/L (136-145)
[2017-03-25 08:42] LABS: ISTAT ARTERIAL BLOOD GAS HCO3 16 meq/L (19-24); ISTAT ARTERIAL BLOOD GAS PCO2 26 mmHg (35-46); ISTAT ARTERIAL BLOOD GAS PO2 62 mmHg (80-95); ISTAT ARTERIAL BLOOD GAS pH 7.37 (7.35-7.45); ISTAT CARBON DIOXIDE 16 mEq/l (24-31); ISTAT DELIVERY SYSTEM Ventilator; ISTAT FIO2 40 %; ISTAT PEEP 5; ISTAT RATE 12; ISTAT SITE Art Line; VE 15.1; Vt 500
[2017-03-25] MEDS ORDERED: THIAMINE HCL 100 MG/ML 2 ML VIAL IM SCH (09:00)
[2017-03-25] MEDS ORDERED: THIAMINE HCL INJ 100 MG in SYRINGE 9 ML IV SCH (09:00)
[2017-03-25] MEDS ORDERED: NURSING VERBAL MED ORDER ONE ×4 (09:00→17:00)
[2017-03-25] MEDS ORDERED: THIAMINE HCL 100 MG/ML 2 ML VIAL IV SCH (09:00)
[2017-03-25 09:01] LABS: PHOSPHORUS 2.5 mg/dl (2.5-4.9)
[2017-03-25] MEDS: AMIODARONE / D5W 200 ML IV SCH ×2 (09:09→21:52)
--- NOTE | 2017-03-25 09:13 | Neurology Consultation ---
Neurology Consultation Date of Consultation: Mar 25, 2017. Attending Physician: Radha Shook MD Primary Care Physician: No Doctor, Assigned Reason for Consultation: Consultation for hypothermic protocol and continuous EEG History of Present Illness Source: hospital records This is a 66-year-old male who presented with cardiac arrest and hypothermia protocol. History limited secondary to mental status. Apparently the patient was hypothermic on his own without any outside intervention. His temperature is starting to go up at this point. Has been having multisystem failure. Is not currently on sedation but is unresponsive. Not responding or showing a gag response to suctioning. There has been no clinical seizure-like activity. Past Medical/Surgical History Medical Problems: (1) Acute RI, inferior wall Status: Acute (2) Anemia Status: Chronic (3) Cardiac arrest Status: Acute (4) Closed rib fracture Status: Acute (5) Hypocalcemia Status: Acute (6) Obesity Status: Chronic (7) Pneumothorax on right Status: Acute (8) Ribs, multiple fractures Status: Acute (9) ST elevation (STEMI) myocardial infarction involving left anterior descending coronary artery Status: Acute (10) Ventricular tachycardia Status: Acute Family History Unobtainable at this time. Social History Patient is normally alert and oriented and independent in his activities of daily living. No reported tobacco or alcohol use. Smokeless Tobacco Use: No Alcohol Use: socially Drug Use: none Marital Status: in relationship Housing Status: lives with significant other Occupation Status: employed Allergies Coded Allergies: Tomato (Verified Allergy, Intermediate, HIVES, 10/12/13) Current Inpatient Medications Current Inpatient Medications Medications (Trade) Dose Ordered Sig/Maxine Route Start Time Stop Time Status Last Admin Dose Admin Artificial Tears (Lacri-Lube Oph Oint) 1 appln Q2H PRN OPB 03/24/17 14:00 04/23/17 13:59 Midazolam HCl 250 ml @ 0 mls/hr Q0M PRN IV 03/24/17 13:55 04/23/17 13:54 Fentanyl Citrate 250 ml @ 0 mls/hr Q0M IV 03/24/17 13:55 04/07/17 13:54 Buspirone HCl (BusPAR TAB) 60 mg ONE PRN NG 03/24/17 14:00 04/23/17 13:59 03/25/17 02:44 60 MG Pantoprazole Sodium 40 mg/ Syringe 10 ml @ 5 mls/min Q24H IV 03/24/17 21:00 04/23/17 20:59 03/24/17 20:04 5 MLS/MIN Insulin Aspart (novoLOG ASPART) SLIDING SCALE PCHS SC 03/24/17 17:15 04/23/17 18:59 Parenteral Electrolyte Solution 1,000 ml @ 125 mls/hr Q8H IV 03/24/17 16:30 04/23/17 14:14 03/25/17 00:28 125 MLS/HR Miscellaneous Information ( Icu Electrolyte Replacement Protocol) 1 ea per protocol PRN N/A 03/24/17 14:15 03/31/17 14:14 Glucose (Glucose 40% Gel) 15-30 GRAMS 15 GRAMS... UD PRN PO 03/24/17 14:30 04/23/17 14:29 Glucose (Glucose Chew Tab) 1 tabs UD PRN PO 03/24/17 14:30 04/23/17 14:29 Dextrose (Dextrose 50% 50ML Syringe) 25-50ML OF 50% DW IV FOR... UD PRN IV 03/24/17 14:30 04/23/17 14:29 Glucagon (Glucagon Inj) 1 mg UD PRN SQ 03/24/17 14:30 04/23/17 14:29 Aspirin (Aspirin Chew) 81 mg QAM PO 03/25/17 09:00 04/24/17 08:59 Clopidogrel Bisulfate (plAVix TAB) 75 mg QAM PO 03/25/17 09:00 04/24/17 08:59 Atorvastatin Calcium (Lipitor Tab) 80 mg QAM PO 03/25/17 09:00 04/24/17 08:59 Amiodarone HCL/ Dextrose 200 ml @ 16.7 mls/hr [id number] IV 03/24/17 20:00 04/23/17 19:59 03/24/17 19:44 16.7 MLS/HR Norepinephrine Bitartrate 8 mg/ Dextrose 508 ml @ 0 mls/hr Q0M PRN IV 03/24/17 16:45 04/23/17 16:44 03/24/17 17:15 13.6 MLS/HR Miscellaneous Information (Order Awaiting Action) 1 ea QS N/A 03/25/17 00:00 04/24/17 00:00 03/24/17 22:48 1 EA Insulin Human Regular 250 units/ Sodium Chloride 252.5 ml @ 0 mls/hr DAILY@1130 IV 03/24/17 18:27 04/23/17 18:26 03/24/17 18:51 2.1 MLS/HR Thiamine HCl 100 mg/Syringe 10 ml @ 2 mls/min QAM IV 03/25/17 09:00 04/24/17 08:59 Potassium/ Phosphorus/Sodium (Phospha 250 Neutral 155-852-130 Mg) 1 tab Q4H PO 03/25/17 06:00 03/25/17 14:01 03/25/17 06:02 1 TAB Miscellaneous Information (Nursing Verbal Med Order) 1 ea ONE ONCE N/A 03/25/17 09:00 03/25/17 09:01 UNV Review of Systems Not obtainable secondary to mental status Physical Exam Vital Signs (Past 24 Hrs): Date Time Temp Pulse Resp B/P (MAP) Pulse Ox O2 Delivery O2 Flow Rate FiO2 03/25/17 08:25 50 03/25/17 08:00 35.5 62 16 138/66 (90) 93 Mechanical Ventilator 40 03/25/17 07:45 40 03/25/17 07:00 35.2 63 16 114/60 (78) 95 Mechanical Ventilator 40 129/66 (87) 03/25/17 06:00 35.1 64 16 130/76 (94) 95 40 137/74 (95) 03/25/17 05:48 40 03/25/17 05:22 40 03/25/17 05:00 35.1 66 16 123/75 (91) 97 Mechanical Ventilator 40 143/75 (97) 03/25/17 04:02 40 03/25/17 04:00 40 03/25/17 04:00 35.1 65 16 129/81 (97) 100 Mechanical Ventilator 40 149/81 (103) 03/25/17 04:00 100 Mechanical Ventilator 40 03/25/17 03:00 34.8 61 15 116/41 (66) 99 Mechanical Ventilator 60 118/57 (77) 03/25/17 02:10 60 03/25/17 02:00 34.5 61 16 88/49 (62) 99 Mechanical Ventilator 60 114/64 (81) 03/25/17 01:00 33.9 63 14 88/64 (72) 100 Mechanical Ventilator 60 101/68 (79) 03/25/17 00:05 60 03/25/17 00:01 33.3 75 14 105/90 (95) 99 Mechanical Ventilator 60 107/74 (85) 03/24/17 23:59 60 03/24/17 23:59 96 Mechanical Ventilator 60 03/24/17 23:00 32.5 84 15 101/74 (83) 96 Mechanical Ventilator 60 113/72 (86) 03/24/17 22:00 32.0 76 15 104/70 (81) 99 60 90/79 (83) 03/24/17 21:00 32.2 72 14 84/64 (71) 99 98/67 (77) 03/24/17 20:36 60 03/24/17 20:00 99 Mechanical Ventilator 80 03/24/17 20:00 32.7 84 14 79/53 (62) 99 Mechanical Ventilator 80 94/57 (69) 03/24/17 20:00 80 03/24/17 19:48 80 03/24/17 19:20 32.9 84 14 73/51 (58) 99 Mechanical Ventilator 80 84/54 (64) 03/24/17 18:17 74 19 109/70 (89) 80/53 03/24/17 18:15 88 24 (79) 115/67 03/24/17 18:00 93 24 (84) 127/69 03/24/17 17:46 88 24 81/64 (70) 03/24/17 17:45 98 24 03/24/17 17:32 92 24 78/56 (58) 03/24/17 17:30 85 24 03/24/17 17:15 91 22 100 03/24/17 17:03 117/63 (77) 03/24/17 16:55 80 03/24/17 16:32 94 22 126/56 (96) 03/24/17 16:30 94 22 03/24/17 16:16 107 16 108/60 (84) 100 03/24/17 16:15 98 16 100 03/24/17 16:10 91 20 91/78 (88) 100 03/24/17 16:00 132 20 93 03/24/17 15:54 87 20 111/60 (63) 03/24/17 15:45 32.7 86 16 127/85 97 Mechanical Ventilator 03/24/17 15:25 81 16 127/85 (99) 98 Mechanical Ventilator 100 03/24/17 15:15 81 16 131/85 (100) 98 Mechanical Ventilator 100 03/24/17 13:15 137 03/24/17 13:14 138 03/24/17 13:13 34.6 140 16 Mechanical Ventilator 03/24/17 13:02 64 18 42/28 93 Mechanical Ventilator 15.0 03/24/17 12:57 70 14 37/27 95 Mechanical Ventilator 15.0 03/24/17 12:55 70 21 43/24 94 Mechanical Ventilator 15.0 03/24/17 12:54 100 03/24/17 12:49 84 03/24/17 12:48 87 14 89 Mechanical Ventilator 03/24/17 12:42 Mechanical Ventilator 15.0 03/24/17 12:42 Mechanical Ventilator 15.0 03/24/17 12:42 Mechanical Ventilator 15.0 The patient is in the ICU and intubated. No sedation or anesthetic medications present HEENT: Normocephalic/atraumatic no scleral icterus Extremities: No gross deformities or rashes noted Neurological examination: Mental status: Patient is obtunded and unresponsive. No speech or vocalization is produced Pupils were midpoint and did not seem to significantly react to light. No oculocephalics. Per nursing the patient does not gag to suction. Active facial movement, sensation, and other cranial nerves unable to be obtained secondary to mental status. No spontaneous movement and no withdrawal to noxious stimuli The patient did not withdraw all extremities to deep nailbed pressure times all 4 extremity. Could not obtain deep tendon reflexes. Toes were difficult to plantar stimulation Coordination and gait cannot be tested secondary to mental status Laboratory Results Past 24 Hours: 03/25/17 08:09 Red Blood Count 3.43, Mean Corpuscular Volume 89.2, Mean Corpuscular Hemoglobin 30.9, Mean Corpuscular Hemoglobin Concent 34.6, Mean Platelet Volume 10.9, Neutrophils (%) (Auto) 81.0, Lymphocytes (%) (Auto) 9.6, Monocytes (%) (Auto) 9.1, Eosinophils (%) (Auto) 0.0, Basophils (%) (Auto) 0.1, Neutrophils # (Auto) 13.71, Lymphocytes # (Auto) 1.62, Monocytes # (Auto) 1.54, Eosinophils # (Auto) 0.00, Basophils # (Auto) 0.02 03/25/17 08:09 Test 03/24/17 12:53 03/24/17 12:55 03/24/17 12:57 03/24/17 12:58 Bedside Glucose 256 mg/dl (70-99) Total Bilirubin 0.3 mg/dl (0.2-1) Direct Bilirubin 0.1 mg/dl (0-0.2) Aspartate Amino Transf (AST/SGOT) 100 U/L (15-37) Alanine Aminotransferase (ALT/SGPT) 78 U/L (12-78) Alkaline Phosphatase 39 U/L (45-117) Total Creatine Kinase 264 U/L (39-308) Creatine Kinase MB 6.9 ng/ml (0.5-3.6) Creatine Kinase MB Ratio 2.6 (0-3.0) Pro-B-Type Natriuretic Peptide 196 pg/ml (0-900) Total Protein 3.7 gm/dl (6.4-8.2) Albumin 1.7 gm/dl (3.4-5.0) Lipase 268 U/L (73-393) Thyroid Stimulating Hormone (TSH) 10.900 uIu/ml (0.300-4.500) Bedside Troponin I 0.350 ng/ml (0-0.045) Bedside Lactic Acid Venous 9.43 mmol/L (0.90-1.70) Test 03/24/17 13:02 03/24/17 15:07 03/24/17 17:14 03/24/17 19:30 Bedside Hemoglobin 8.8 g/dl (14.0-18.0) Bedside Hematocrit 26 % (42-52) Bedside Sodium 146 mEq/L (135-144) Bedside Potassium 2.8 mEq/L (3.3-5.0) Bedside Chloride 115 mEq/L (101-112) Bedside Total CO2 14 mEq/l (24-31) Bedside Blood Urea Nitrogen 10 mg/dl (7-18) Bedside Creatinine 0.9 mg/dl (0.6-1.3) Bedside Ionized Calcium (Lizy) 0.83 mmol/l (1.12-1.32) Kaolin Activated Coagulation Time 230 SECONDS (94-140) Lactic Acid Level 8.0 mmol/L (0.4-2.0) Urine Color YELLOW Urine Appearance CLOUDY (CLEAR) Urine pH 5.5 (4.5-7.5) Urine Specific [place] 1.038 (1.000-1.030) Urine Protein 2+ (NEG) Urine Glucose (UA) 2+ (NEG) Urine Ketones TRACE (NEG) Urine Occult Blood 3+ (NEG) Urine Nitrite NEG (NEG) Urine Bilirubin NEG (NEG) Urine Urobilinogen NEG (NEG) Urine Leukocyte Esterase NEG (NEG) Urine WBC (Auto) 10-30 /hpf (0-5) Urine RBC (Auto) 0-4 /hpf (0-4) Urine Hyaline Casts (Auto) 5-10 /lpf (0-5) Urine Epithelial Cells (Auto) 5-10 /lpf (0-5) Urine Bacteria (Auto) NEG (NEG) Urine Renal Epithelial Cells 0-5 /lpf (0-5) Urine Crystals AMORPHOUS SEDIMENT (NONE Urine Pathogenic Casts 5-10 GRANULAR CASTS /lpf (0) Urine Yeast (Auto) (NONE PRSENT) Urine Opiates Screen NEG (NEG) Urine Methadone, Qualitative NEG (NEG) Urine Barbiturates NEG (NEG) Urine Phencyclidine (PCP) Level NEG (NEG) Ur Amphetamine/Methamphetamine NEG (NEG) MDMA (Ecstasy) Screen NEG (NEG) Urine Benzodiazepines Screen NEG (NEG) Urine Cocaine Metabolite NEG (NEG) Urine Marijuana (THC) NEG (NEG) Test 03/24/17 19:36 03/24/17 23:41 03/25/17 03:56 03/25/17 08:09 Beta-Hydroxybutyric Acid 7.08 mg/dL (0.2-2.81) Toxic Vacuolation 1+ Echinocytes 2+ Estimated Average Glucose 117 mg/dl Hemoglobin A1c 5.7 % (4.5-5.6) Triglycerides Level 56 mg/dl (0-150) Cholesterol Level 75 mg/dl (0-200) HDL Cholesterol 33 mg/dl LDL Cholesterol, Calculated 31 mg/dl VLDL Cholesterol, Calculated 11 mg/dl Cholesterol/HDL Ratio 2.3 White Blood Count 16.93 K/uL (4.8-10.8) Red Blood Count 3.43 M/uL (4.7-6.1) Hemoglobin 10.6 g/dL (14.0-18.0) Hematocrit 30.6 % (42-52) Mean Corpuscular Volume 89.2 fL (80-100) Mean Corpuscular Hemoglobin 30.9 pg (25-34) Mean Corpuscular Hemoglobin Concent 34.6 g/dl (32-36) Platelet Count 192 K/uL (130-400) Mean Platelet Volume 10.9 fL (7.4-10.4) Neutrophils (%) (Auto) 81.0 % Lymphocytes (%) (Auto) 9.6 % Monocytes (%) (Auto) 9.1 % Eosinophils (%) (Auto) 0.0 % Basophils (%) (Auto) 0.1 % Neutrophils # (Auto) 13.71 K/uL (1.4-6.5) Lymphocytes # (Auto) 1.62 K/uL (1.2-3.4) Monocytes # (Auto) 1.54 K/uL (0.11-0.59) Eosinophils # (Auto) 0.00 K/uL (0-0.5) Basophils # (Auto) 0.02 K/uL (0-0.2) RDW Standard Deviation 47.5 fL (36.4-46.3) RDW Coefficient of Variation 14.5 % (11.5-14.5) Immature Granulocyte % (Auto) 0.2 % Immature Granulocyte # (Auto) 0.04 K/uL (0.00-0.02) Prothrombin Time 11.3 SECONDS (9.0-12.0) Prothromb Time International Ratio 1.1 (0.9-1.1) Activated Partial Thromboplast Time 30.8 SECONDS (21.0-31.0) Partial Thromboplastin Ratio 1.2 Anion Gap 15.0 mmol/L (3-11) Est Creatinine Clear Calc Drug Dose 33.7 ml/min Estimated GFR () 34.0 Estimated GFR (Non- 29.3 BUN/Creatinine Ratio 14.9 (10-20) Calcium Level 6.9 mg/dl (8.5-10.1) Phosphorus Level 2.5 mg/dl (2.5-4.9) Magnesium Level 2.2 mg/dl (1.8-2.4) Troponin I > 200.000 ng/ml Test 03/25/17 08:16 03/25/17 08:29 Bedside Glucose (other) 87 mg/dl (70-99) Blood Gas Sample Site Art Line Bedside Blood Gas pH (LAB) 7.37 (7.35-7.45) Bedside Blood Gas pCO2 (LAB) 26 mmHg (35-46) Bedside Blood Gas pO2 (LAB) 62 mmHg (80-95) Bedside Blood Gas HCO3 (LAB) 16 meq/L (19-24) Bedside Blood Gas Total CO2 16 mEq/l (24-31) Bedside Blood Gas Base Excess (LAB) -10.0 meq/L (-9-1.8) Bedside Blood Gas O2 Saturation 93.0 % (90-95) Amrik Test NA Oxygen Delivery Device Ventilator Bedside Oxygen Rate (breaths/min) 12 Blood Gas Minute Ventilation 15.1 Bedside FiO2 40 % Blood Gas Tidal Volume 500 Blood Gas PEEP 5 Date/Time Source Procedure Growth Status 03/24/17 16:10 Nasal MRSA DNA Surveillance Screen - Final Specimen Negative for MRSA by DNA Probe Complete Imaging CT of the head report and images were reviewed by myself. I am concerned that there is some loss of the fry-white matter junction which could indicate diffuse anoxic injury. Impression This is a 66-year-old male status post cardiac arrest and hypothermia protocol in the process of rewarming. Overall patient is fairly unresponsive despite not being on sedation. Patient is going into multisystem failure. Overall medical prognosis as well as neurological prognosis appears to be poor. Continuous EEG at this time has not shown any seizure activity or epileptiform discharges. Plan Medical management per ICU team. Once the patient has been fully rewarmed, if there is still no seizure activity , continuous EEG can be discontinued. Thank your for allowing me to participate in this patient's care. If there is any questions or concerns, feel free to call/page me
[2017-03-25] MEDS ORDERED: MEPERIDINE HCL 25 MG/ML CARP ONE (09:23)
[2017-03-25] MEDS ORDERED: SODIUM CHLORIDE 0.9% 1000ML 1,000 ML IV SCH (09:30)
[2017-03-25] MEDS ORDERED: MEPERIDINE HCL 25 MG/ML CARP IV PRN (09:45)
[2017-03-25] MEDS: NOREPINEPHRINE BIT INJ 8 MG in DEXTROSE 5% 500ML 500 ML IV PRN ×2 (09:48→17:25)
[2017-03-25] MEDS: ASPIRIN 81 MG CHEW PO SCH (10:03)
[2017-03-25] MEDS: ATORVASTATIN 40 MG TAB PO SCH (10:03)
[2017-03-25] MEDS: CLOPIDOGREL BISULFATE 75 MG TAB PO SCH (10:03)
[2017-03-25] MEDS ORDERED: CALCIUM CHLORIDE 10% 1,000 MG in SODIUM CHLORIDE 0.9% 50ML 50 ML IV STA (10:46)
--- NOTE | 2017-03-25 10:48 | EEG Procedure Note ---
EEG Procedure Note Date of Service Mar 24, 2017. Start / End Times Start Time: 03/24/2017 at 17:58 PM End Time: 03/25/2017 at 10:31 AM Referring Physician Neville Metzger History This is a 66-year-old male status post cardiac arrest and hypothermia protocol. Continues EEG per protocol to evaluate for sub clinical status epilepticus. Home Medication List Unable to Obtain Active Prescriptions or Reported Meds Inpatient Medication List Current Inpatient Medications Medications (Trade) Dose Ordered Sig/Maxine Route Start Time Stop Time Status Last Admin Dose Admin Artificial Tears (Lacri-Lube Oph Oint) 1 appln Q2H PRN OPB 03/24/17 14:00 04/23/17 13:59 Midazolam HCl 250 ml @ 0 mls/hr Q0M PRN IV 03/24/17 13:55 04/23/17 13:54 Fentanyl Citrate 250 ml @ 0 mls/hr Q0M IV 03/24/17 13:55 04/07/17 13:54 Buspirone HCl (BusPAR TAB) 60 mg ONE PRN NG 03/24/17 14:00 04/23/17 13:59 03/25/17 02:44 60 MG Pantoprazole Sodium 40 mg/ Syringe 10 ml @ 5 mls/min Q24H IV 03/24/17 21:00 04/23/17 20:59 03/24/17 20:04 5 MLS/MIN Insulin Aspart (novoLOG ASPART) SLIDING SCALE HS SC 03/24/17 17:15 04/23/17 18:59 Miscellaneous Information ( Icu Electrolyte Replacement Protocol) 1 ea per protocol PRN N/A 03/24/17 14:15 03/31/17 14:14 Glucose (Glucose 40% Gel) 15-30 GRAMS 15 GRAMS... UD PRN PO 03/24/17 14:30 04/23/17 14:29 Glucose (Glucose Chew Tab) 1 tabs UD PRN PO 03/24/17 14:30 04/23/17 14:29 Dextrose (Dextrose 50% 50ML Syringe) 25-50ML OF 50% DW IV FOR... UD PRN IV 03/24/17 14:30 04/23/17 14:29 Glucagon (Glucagon Inj) 1 mg UD PRN SQ 03/24/17 14:30 04/23/17 14:29 Aspirin (Aspirin Chew) 81 mg QAM PO 03/25/17 09:00 04/24/17 08:59 03/25/17 10:03 81 MG Clopidogrel Bisulfate (plAVix TAB) 75 mg QAM PO 03/25/17 09:00 04/24/17 08:59 03/25/17 10:03 75 MG Atorvastatin Calcium (Lipitor Tab) 80 mg QAM PO 03/25/17 09:00 04/24/17 08:59 03/25/17 10:03 80 MG Amiodarone HCL/ Dextrose 200 ml @ 16.7 mls/hr [id number] IV 03/24/17 20:00 04/23/17 19:59 03/25/17 09:09 16.7 MLS/HR Norepinephrine Bitartrate 8 mg/ Dextrose 508 ml @ 0 mls/hr Q0M PRN IV 03/24/17 16:45 04/23/17 16:44 03/25/17 09:48 6.8 MLS/HR Miscellaneous Information (Order Awaiting Action) 1 ea QS N/A 03/25/17 00:00 04/24/17 00:00 03/24/17 22:48 1 EA Insulin Human Regular 250 units/ Sodium Chloride 252.5 ml @ 0 mls/hr DAILY@1130 IV 03/24/17 18:27 04/23/17 18:26 03/24/17 18:51 2.1 MLS/HR Potassium/ Phosphorus/Sodium (Phospha 250 Neutral 155-852-130 Mg) 1 tab Q4H PO 03/25/17 06:00 03/25/17 14:01 03/25/17 10:02 1 TAB Sodium Chloride 1,000 ml @ 50 mls/hr Q20H IV 03/25/17 09:30 04/24/17 09:29 03/25/17 09:29 50 MLS/HR Meperidine HCl (Demerol Inj) 25 mg Q2H PRN IV 03/25/17 09:45 04/08/17 09:44 Miscellaneous Information (Nursing Verbal Med Order) 1 ea ONE ONCE N/A 03/25/17 10:00 03/25/17 10:01 UNV Description This is a 21 video electrode EEG with a single channel dedicated to limited EKG. The electrodes were placed in accordance with the International 10-20 system. Post processing with an event detection algorithm is applied to the continuous data collection for the purpose of identifying abnormal epochs. These detections are reviewed and all candidate seizures are processed for further analysis. Data is reviewed in its raw format and patient events are processed, edited and stored. Electrical sharp artifact noted in the beginning of the recording Patient was unresponsive and intubated at the time of this recording. At the start of the recording the background was poorly organized. Background was diffusely suppressed with occasional burst activity of delta and theta frequencies lasting 3-6 seconds. Burst activity was more frequent after 2 AM but with shorter burst durations averaging 1-2 seconds. After 8 AM background was diffusely attenuated with frequent intermittent low to moderate amplitude delta activity. On video there is no clinical abnormal movement concerning for seizure. Interpretation This is an abnormal continuous video EEG secondary to initially diffuse burst suppression followed later by diffuse background disorganization, attenuation, and low-moderate amplitude intermittent delta activity. There was no electrographic seizures or epileptiform discharges. Clinical Correlation This EEG indicates a severe encephalopathy of nonspecific etiology.
--- NOTE | 2017-03-25 11:15 | Critical Care Progress Note ---
Critical Care Progress Note Date of Service Mar 25, 2017. ICU Day ICU Day Number: [address] Gastelum Subjective 66 year old male with 2 witnessed cardiac arrests in the field. Was intubated in the field. Was found to have STEMI and had 3 stents placed to the LAD. A code arctic was called and the patient was placed on an amiodarone drip. Had potassium, magnesium and phospate replete overnight. Patient had his integrillin stopped overnight due to bleeding from his ET tube, epistaxis and gingival bleeding. He also had a pneumothorax and had a right side chest tube placed. Had an insulin drip started which was stopped this morning due to low glucose levels. Overnight the patients temperature has continued to rise despite the use of a cooling blanket. He has had minimal urine output with 11ml of urine output overnight thus far and his creatinine has continued to rise overnight. His repeat troponin this morning was over 200 and the patient is currently having multiorgan failure and his prognosis is very poor. Unable to obtain ROS from the patient due mechanical ventilation Objective GENERAL: Patient intubated. Does not appear to be in any apparent distressThe patient is intubated. He is making no real purposeful movement. Obese HEENT: Pupils fixed and dilated LUNGS: Breath sounds clear bilaterally with no wheezes, rales or rhonchi CARDIAC: RRR with no obvious murmurs heard ABDOMEN: soft EXTREMITIES: weak peripheral pulses but intact. Cap refill >4 seconds SKIN: no rashes noted, 7 japanese catheter in R femoral vein and chest tube inserted on R side of chest with drainage to floor Current SOFA Score SOFA Score Response (Comments) Value Platelets (x10) > 150 0 Bilirubin (mg/dL) < 1.2 0 Bita Coma Score < 6 4 Level of Hypotension No Hypotension 0 Creatinine (mg/dL) 2.0 - 3.4 2 Total 6 Assessment & Plan Resident Physician Supervision Note: I was present with [Name of resident] during the history and exam. I discussed the case with the resident and agree with the findings and plan as documented in the note. Any exceptions or clarifications are listed here: [None ] Documented By: Antionette Gastelum ASSESSMENT: 66-year-old male who suffered a cardiac arrest secondary to an ST elevation DC of the left anterior descending coronary artery. Is in the ICU with multiorgan system failure. Has a poor prognosis. 66 year old male with 2 witnessed cardiac arrests in the field. Was intubated in the field. Was found to have STEMI and had 3 stents placed to the LAD. A code libertad was called and the patient was placed on an amiodarone drip. Had potassium, magnesium and phospate replete overnight. Patient had his integrillin stopped overnight due to bleeding from his ET tube, epistaxis and gingival bleeding. He also had a pneumothorax and had a right side chest tube placed. Had an insulin drip started which was stopped this morning due to low glucose levels. Overnight the patients temperature has continued to rise despite the use of a cooling blanket. He has had minimal urine output with 11ml of urine output overnight thus far and his creatinine has continued to rise overnight. His repeat troponin this morning was over 200 and the patient is currently having multiorgan failure and his prognosis is very poor. PLAN: NEURO therapeutic hypothermia protocol continuous EEG monitoring no obvious epileptiform activity neuro on board- Dr. Tamar lara for shivering and demerol 25mv IV for shivering RESP multiple rib fractures present from CPR fentanyl ordered for pain control current vent settings: tidal volume:500, Peep 5, and FiO2 [address] for pneumothorax CARDIAC ST elevation DC with 3 stents placed in LAD Amiodarone infusion started for arrythmias Lipid panel within normal limits Patient started on aspirin, plavix and lipitor integrillin stopped due to bleeding HYUN held due to renal function Code [facility] protocol Echo with limited study, showed akinetic apex RENAL creatinine 2.25 with minimal urine output of 11ml overnight potassium, magnesium and phosphate replaced overnight 50mls/hr of normal saline ID core temp of 35.1 and rising despite cooling blanket, goal 33-36 urine culture pending GI NPO gtube with low intermittent suction- dark blood suctioned from g tube hx of ulcerative colitis, on pantoprazole 40mg q24 elevated LFT's with AST 100 and ALT 78 HEME hgb stable at 10.6, like hemodilutional from fluids he received overnight hold on DVT prophylaxis due to bleeding aspirin and plavix started ENDO TSH >10 would need to follow as outpatient calcium 6.9 --> calcium chloride given IV recheck tomorrow HbA1c 5.7, bsgs well controlled, on insulin drip, currently held FULL CODE I personally examined this patient, reviewed his clinical and laboratory data, interpreted his x-ray performed waited for the plan of care. In summary, the patient is a unfortunate 66-year-old man who suffered cardiac arrest yesterday. He was found to have LAD occlusion and underwent stenting yesterday. Patient received Integrilin and was loaded with 600 mg of Plavix. He requires to be intubated for airway protection. Cooling protocol was initiated. Patient remains critically ill in intensive care unit for further management. On my physical examination, patient is on the ventilator with initial oxygen requirement 40% which gradually increased to 60%. He became hypotensive and required norepinephrine initiation. Neurologically patient suffered anoxic brain. Neurologic examination revealed pupils which are reactive to light. Also, he was overbreathing the ventilator. Gag and cough reflexes were absent. He was not responsive to painful stimuli. Patient has acute kidney injury and hyperkalemia which I treated with dextrose, insulin, albuterol on a few occasions. Also, I gave Lasix and acetazolamide trying to convert oliguric renal failure to nonoliguric with some success. I hope we will be able to avoid placement of hemodialysis catheter and hemodialysis. From cardiac perspective we will continue with well antiplatelet therapy for acute myocardial infarction and the stenting of LAD. From ID perspective, patient does not appear to have infection. He has bilateral lung infiltrates which are more consistent with acute lung injury and progressively worsening oxygen requirement. Secretions from endotracheal tube are minimal. I had an extensive conversation with patient's family and his son Richard who is power of patent attorney. He told me that his father would not have wanted to be on life support for long time. Still, he would like to give him the best chance for recovery. We will continue with current supportive measures, start warming patient. He will remain full code. If there is no any significant neurologic recovery at 72 hours following cardiac arrest we will proceed with comfort measures only. I spent totally 75 minutes of critical care time evaluating managing this patient. Dr. Gastelum SPOKANE II Score Date Score Was Generated: Mar 26, 2017 Consults & Procedures Consultants: Dr. Nirav Salazar Procedures: Arterial line Chest tube ET tube Right femoral central line Data Medications: Current Inpatient Medications Medications (Trade) Dose Ordered Sig/Maxine Route Start Time Stop Time Status Last Admin Dose Admin Artificial Tears (Lacri-Lube Oph Oint) 1 appln Q2H PRN OPB 03/24/17 14:00 04/23/17 13:59 Midazolam HCl 250 ml @ 0 mls/hr Q0M PRN IV 03/24/17 13:55 04/23/17 13:54 Fentanyl Citrate 250 ml @ 0 mls/hr Q0M IV 03/24/17 13:55 04/07/17 13:54 Buspirone HCl (BusPAR TAB) 60 mg ONE PRN NG 03/24/17 14:00 04/23/17 13:59 03/25/17 02:44 60 MG Pantoprazole Sodium 40 mg/ Syringe 10 ml @ 5 mls/min Q24H IV 03/24/17 21:00 04/23/17 20:59 03/24/17 20:04 5 MLS/MIN Insulin Aspart (novoLOG ASPART) SLIDING SCALE [facility] 03/24/17 17:15 04/23/17 18:59 Miscellaneous Information ( Icu Electrolyte Replacement Protocol) 1 ea per protocol PRN N/A 03/24/17 14:15 03/31/17 14:14 Glucose (Glucose 40% Gel) 15-30 GRAMS 15 GRAMS... UD PRN PO 03/24/17 14:30 04/23/17 14:29 Glucose (Glucose Chew Tab) 1 tabs UD PRN PO 03/24/17 14:30 04/23/17 14:29 Dextrose (Dextrose 50% 50ML Syringe) 25-50ML OF 50% DW IV FOR... UD PRN IV 03/24/17 14:30 04/23/17 14:29 Glucagon (Glucagon Inj) 1 mg UD PRN SQ 03/24/17 14:30 04/23/17 14:29 Aspirin (Aspirin Chew) 81 mg QAM PO 03/25/17 09:00 04/24/17 08:59 03/25/17 10:03 81 MG Clopidogrel Bisulfate (plAVix TAB) 75 mg QAM PO 03/25/17 09:00 04/24/17 08:59 03/25/17 10:03 75 MG Atorvastatin Calcium (Lipitor Tab) 80 mg QAM PO 03/25/17 09:00 04/24/17 08:59 03/25/17 10:03 80 MG Amiodarone HCL/ Dextrose 200 ml @ 16.7 mls/hr [id number] IV 03/24/17 20:00 04/23/17 19:59 03/25/17 09:09 16.7 MLS/HR Norepinephrine Bitartrate 8 mg/ Dextrose 508 ml @ 0 mls/hr Q0M PRN IV 03/24/17 16:45 04/23/17 16:44 03/25/17 09:48 6.8 MLS/HR Miscellaneous Information (Order Awaiting Action) 1 ea QS N/A 03/25/17 00:00 04/24/17 00:00 03/24/17 22:48 1 EA Insulin Human Regular 250 units/ Sodium Chloride 252.5 ml @ 0 mls/hr DAILY@1130 IV 03/24/17 18:27 04/23/17 18:26 03/24/17 18:51 2.1 MLS/HR Potassium/ Phosphorus/Sodium (Phospha 250 Neutral 155-852-130 Mg) 1 tab Q4H PO 03/25/17 06:00 03/25/17 14:01 03/25/17 10:02 1 TAB Sodium Chloride 1,000 ml @ 50 mls/hr Q20H IV 03/25/17 09:30 04/24/17 09:29 03/25/17 09:29 50 MLS/HR Meperidine HCl (Demerol Inj) 25 mg Q2H PRN IV 03/25/17 09:45 04/08/17 09:44 Miscellaneous Information (Nursing Verbal Med Order) 1 ea ONE ONCE N/A 03/25/17 10:00 03/25/17 10:01 UNV I & O: 24-Hour Column 03/26/17 08:00 Output Total 5 ml Balance -5 ml Vital Signs: Date Time Temp Pulse Resp B/P (MAP) Pulse Ox O2 Delivery O2 Flow Rate FiO2 03/25/17 10:00 36.0 62 16 103/60 (74) 93 Mechanical Ventilator 50 107/56 (73) 03/25/17 09:00 35.7 63 16 101/66 (78) 96 Mechanical Ventilator 50 116/58 (77) 03/25/17 08:25 50 03/25/17 08:00 40 03/25/17 08:00 96 40 03/25/17 08:00 35.5 62 16 138/66 (90) 93 Mechanical Ventilator 40 03/25/17 07:45 40 03/25/17 07:00 35.2 63 16 114/60 (78) 95 Mechanical Ventilator 40 129/66 (87) 03/25/17 06:00 35.1 64 16 130/76 (94) 95 40 137/74 (95) 03/25/17 05:48 40 03/25/17 05:22 40 03/25/17 05:00 35.1 66 16 123/75 (91) 97 Mechanical Ventilator 40 143/75 (97) 03/25/17 04:02 40 03/25/17 04:00 40 03/25/17 04:00 35.1 65 16 129/81 (97) 100 Mechanical Ventilator 40 149/81 (103) 03/25/17 04:00 100 Mechanical Ventilator 40 03/25/17 03:00 34.8 61 15 116/41 (66) 99 Mechanical Ventilator 60 118/57 (77) 03/25/17 02:10 60 03/25/17 02:00 34.5 61 16 88/49 (62) 99 Mechanical Ventilator 60 114/64 (81) 03/25/17 01:00 33.9 63 14 88/64 (72) 100 Mechanical Ventilator 60 101/68 (79) 03/25/17 00:05 60 03/25/17 00:01 33.3 75 14 105/90 (95) 99 Mechanical Ventilator 60 107/74 (85) 03/24/17 23:59 60 03/24/17 23:59 96 Mechanical Ventilator 60 03/24/17 23:00 32.5 84 15 101/74 (83) 96 Mechanical Ventilator 60 113/72 (86) 03/24/17 22:00 32.0 76 15 104/70 (81) 99 60 90/79 (83) 03/24/17 21:00 32.2 72 14 84/64 (71) 99 98/67 (77) 03/24/17 20:36 60 03/24/17 20:00 99 Mechanical Ventilator 80 03/24/17 20:00 32.7 84 14 79/53 (62) 99 Mechanical Ventilator 80 94/57 (69) 03/24/17 20:00 80 03/24/17 19:48 80 03/24/17 19:20 32.9 84 14 73/51 (58) 99 Mechanical Ventilator 80 84/54 (64) 03/24/17 18:17 74 19 109/70 (89) 80/53 03/24/17 18:15 88 24 (79) 115/67 03/24/17 18:00 93 24 (84) 127/69 03/24/17 17:46 88 24 81/64 (70) 03/24/17 17:45 98 24 03/24/17 17:32 92 24 78/56 (58) 03/24/17 17:30 85 24 03/24/17 17:15 91 22 100 03/24/17 17:03 117/63 (77) 03/24/17 16:55 80 03/24/17 16:32 94 22 126/56 (96) 03/24/17 16:30 94 22 03/24/17 16:16 107 16 108/60 (84) 100 03/24/17 16:15 98 16 100 03/24/17 16:10 91 20 91/78 (88) 100 03/24/17 16:00 132 20 93 03/24/17 15:54 87 20 111/60 (63) 03/24/17 15:45 32.7 86 16 127/85 97 Mechanical Ventilator 03/24/17 15:25 81 16 127/85 (99) 98 Mechanical Ventilator 100 03/24/17 15:15 81 16 131/85 (100) 98 Mechanical Ventilator 100 03/24/17 13:15 137 03/24/17 13:14 138 03/24/17 13:13 34.6 140 16 Mechanical Ventilator 03/24/17 13:02 64 18 42/28 93 Mechanical Ventilator 15.0 03/24/17 12:57 70 14 37/27 95 Mechanical Ventilator 15.0 03/24/17 12:55 70 21 43/24 94 Mechanical Ventilator 15.0 03/24/17 12:54 100 03/24/17 12:49 84 03/24/17 12:48 87 14 89 Mechanical Ventilator 03/24/17 12:42 Mechanical Ventilator 15.0 03/24/17 12:42 Mechanical Ventilator 15.0 03/24/17 12:42 Mechanical Ventilator 15.0 Laboratory Results: Last 24 Hours Test 03/24/17 12:53 03/24/17 12:55 03/24/17 12:57 03/24/17 12:58 Bedside Glucose 256 mg/dl White Blood Count 11.29 K/uL Red Blood Count 3.49 M/uL Hemoglobin 10.4 g/dL Hematocrit 33.4 % Mean Corpuscular Volume 95.7 fL Mean Corpuscular Hemoglobin 29.8 pg Mean Corpuscular Hemoglobin Concent 31.1 g/dl Platelet Count 183 K/uL Mean Platelet Volume 10.9 fL Neutrophils (%) (Auto) 63.4 % Lymphocytes (%) (Auto) 26.0 % Monocytes (%) (Auto) 6.0 % Eosinophils (%) (Auto) 2.3 % Basophils (%) (Auto) 0.4 % Neutrophils # (Auto) 7.17 K/uL Lymphocytes # (Auto) 2.93 K/uL Monocytes # (Auto) 0.68 K/uL Eosinophils # (Auto) 0.26 K/uL Basophils # (Auto) 0.04 K/uL RDW Standard Deviation 50.3 fL RDW Coefficient of Variation 14.5 % Immature Granulocyte % (Auto) 1.9 % Immature Granulocyte # (Auto) 0.21 K/uL Prothrombin Time 12.0 SECONDS Prothromb Time International Ratio 1.1 Activated Partial Thromboplast Time 31.3 SECONDS Partial Thromboplastin Ratio 1.2 Sodium Level 149 mmol/L Potassium Level 3.0 mmol/L Chloride Level 117 mmol/L Carbon Dioxide Level 13 mmol/L Anion Gap 19.0 mmol/L Blood Urea Nitrogen 12 mg/dl Creatinine 0.98 mg/dl Estimated GFR () 92.7 Estimated GFR (Non- 80.0 BUN/Creatinine Ratio 12.4 Random Glucose 203 mg/dl Calcium Level 5.3 mg/dl Phosphorus Level 5.3 mg/dl Magnesium Level 1.4 mg/dl Total Bilirubin 0.3 mg/dl Direct Bilirubin 0.1 mg/dl Aspartate Amino Transf (AST/SGOT) 100 U/L Alanine Aminotransferase (ALT/SGPT) 78 U/L Alkaline Phosphatase 39 U/L Total Creatine Kinase 264 U/L Creatine Kinase MB 6.9 ng/ml Creatine Kinase MB Ratio 2.6 Troponin I 0.492 ng/ml Pro-B-Type Natriuretic Peptide 196 pg/ml Total Protein 3.7 gm/dl Albumin 1.7 gm/dl Lipase 268 U/L Thyroid Stimulating Hormone (TSH) 10.900 uIu/ml Bedside Troponin I 0.350 ng/ml Bedside Lactic Acid Venous 9.43 mmol/L Test 03/24/17 13:02 03/24/17 13:34 03/24/17 14:24 03/24/17 15:04 Bedside Hemoglobin 8.8 g/dl Bedside Hematocrit 26 % Bedside Sodium 146 mEq/L Bedside Potassium 2.8 mEq/L Bedside Chloride 115 mEq/L Bedside Total CO2 14 mEq/l Anion Gap 22.0 mmol/L Bedside Blood Urea Nitrogen 10 mg/dl Bedside Creatinine 0.9 mg/dl Bedside Glucose (other) 195 mg/dl Bedside Ionized Calcium (Lizy) 0.83 mmol/l Bedside Blood Gas pH (LAB) 7.12 7.31 Bedside Blood Gas pCO2 (LAB) 63 mmHg 33 mmHg Bedside Blood Gas pO2 (LAB) 150 mmHg 197 mmHg Bedside Blood Gas HCO3 (LAB) 20 meq/L 17 meq/L Bedside Blood Gas Total CO2 22 mEq/l 18 mEq/l Bedside Blood Gas Base Excess (LAB) -9.0 meq/L -9.0 meq/L Bedside Blood Gas O2 Saturation 98.0 % 100.0 % Kaolin Activated Coagulation Time 202 SECONDS Test 03/24/17 15:07 03/24/17 17:14 03/24/17 18:11 03/24/17 19:30 Kaolin Activated Coagulation Time 230 SECONDS White Blood Count 21.35 K/uL Red Blood Count 4.11 M/uL Hemoglobin 12.5 g/dL Hematocrit 38.4 % Mean Corpuscular Volume 93.4 fL Mean Corpuscular Hemoglobin 30.4 pg Mean Corpuscular Hemoglobin Concent 32.6 g/dl Platelet Count 240 K/uL Mean Platelet Volume 10.8 fL Neutrophils (%) (Auto) 82.5 % Lymphocytes (%) (Auto) 11.2 % Monocytes (%) (Auto) 4.8 % Eosinophils (%) (Auto) 0.6 % Basophils (%) (Auto) 0.2 % Neutrophils # (Auto) 17.61 K/uL Lymphocytes # (Auto) 2.39 K/uL Monocytes # (Auto) 1.02 K/uL Eosinophils # (Auto) 0.13 K/uL Basophils # (Auto) 0.04 K/uL RDW Standard Deviation 49.7 fL RDW Coefficient of Variation 14.7 % Immature Granulocyte % (Auto) 0.7 % Immature Granulocyte # (Auto) 0.16 K/uL Echinocytes 2+ Prothrombin Time 12.8 SECONDS Prothromb Time International Ratio 1.2 Activated Partial Thromboplast Time 102.4 SECONDS Partial Thromboplastin Ratio 3.9 Sodium Level 143 mmol/L Potassium Level 2.8 mmol/L Chloride Level 107 mmol/L Carbon Dioxide Level 23 mmol/L Anion Gap 13.0 mmol/L Blood Urea Nitrogen 19 mg/dl Creatinine 1.62 mg/dl Estimated GFR () 50.5 Estimated GFR (Non- 43.6 BUN/Creatinine Ratio 11.7 Random Glucose 305 mg/dl Lactic Acid Level 8.0 mmol/L Calcium Level 6.6 mg/dl Phosphorus Level 1.9 mg/dl Magnesium Level 1.8 mg/dl Troponin I 59.400 ng/ml Beta-Hydroxybutyric Acid 6.47 mg/dL Blood Gas Sample Site Art Line Bedside Blood Gas pH (LAB) 7.36 Bedside Blood Gas pCO2 (LAB) 24 mmHg Bedside Blood Gas pO2 (LAB) 121 mmHg Bedside Blood Gas HCO3 (LAB) 14 meq/L Bedside Blood Gas Total CO2 14 mEq/l Bedside Blood Gas Base Excess (LAB) -12.0 meq/L Bedside Blood Gas O2 Saturation 99.0 % Amrik Test NA Oxygen Delivery Device Ventilator Bedside Oxygen Rate (breaths/min) 16 Blood Gas Minute Ventilation 8 Bedside FiO2 80 % Blood Gas Tidal Volume 500 Blood Gas PEEP 10 Urine Color YELLOW Urine Appearance CLOUDY Urine pH 5.5 Urine Specific [place] 1.038 Urine Protein 2+ Urine Glucose (UA) 2+ Urine Ketones TRACE Urine Occult Blood 3+ Urine Nitrite NEG Urine Bilirubin NEG Urine Urobilinogen NEG Urine Leukocyte Esterase NEG Urine WBC (Auto) 10-30 /hpf Urine RBC (Auto) 0-4 /hpf Urine Hyaline Casts (Auto) 5-10 /lpf Urine Epithelial Cells (Auto) 5-10 /lpf Urine Bacteria (Auto) NEG Urine Renal Epithelial Cells 0-5 /lpf Urine Crystals AMORPHOUS SEDIMENT Urine Pathogenic Casts 5-10 GRANULAR CASTS /lpf Urine Yeast (Auto) Urine Opiates Screen NEG Urine Methadone, Qualitative NEG Urine Barbiturates NEG Urine Phencyclidine (PCP) Level NEG Ur Amphetamine/Methamphetamine NEG MDMA (Ecstasy) Screen NEG Urine Benzodiazepines Screen NEG Urine Cocaine Metabolite NEG Urine Marijuana (THC) NEG Test 03/24/17 19:36 03/24/17 20:15 03/24/17 20:36 03/24/17 21:10 White Blood Count 24.53 K/uL Red Blood Count 3.95 M/uL Hemoglobin 12.3 g/dL Hematocrit 36.2 % Mean Corpuscular Volume 91.6 fL Mean Corpuscular Hemoglobin 31.1 pg Mean Corpuscular Hemoglobin Concent 34.0 g/dl Platelet Count 221 K/uL Mean Platelet Volume 10.5 fL Neutrophils (%) (Auto) 82.0 % Lymphocytes (%) (Auto) 10.6 % Monocytes (%) (Auto) 6.3 % Eosinophils (%) (Auto) 0.2 % Basophils (%) (Auto) 0.2 % Neutrophils # (Auto) 20.14 K/uL Lymphocytes # (Auto) 2.59 K/uL Monocytes # (Auto) 1.54 K/uL Eosinophils # (Auto) 0.06 K/uL Basophils # (Auto) 0.04 K/uL RDW Standard Deviation 48.8 fL RDW Coefficient of Variation 14.5 % Immature Granulocyte % (Auto) 0.7 % Immature Granulocyte # (Auto) 0.16 K/uL Echinocytes 2+ Prothrombin Time 12.3 SECONDS Prothromb Time International Ratio 1.1 Activated Partial Thromboplast Time 54.8 SECONDS Partial Thromboplastin Ratio 2.1 Sodium Level 143 mmol/L Potassium Level 3.0 mmol/L Chloride Level 110 mmol/L Carbon Dioxide Level 14 mmol/L Anion Gap 19.0 mmol/L Blood Urea Nitrogen 24 mg/dl Creatinine 1.89 mg/dl Estimated GFR () 41.9 Estimated GFR (Non- 36.2 BUN/Creatinine Ratio 12.9 Random Glucose 302 mg/dl Calcium Level 6.6 mg/dl Phosphorus Level 1.6 mg/dl Magnesium Level 1.8 mg/dl Beta-Hydroxybutyric Acid 7.08 mg/dL Bedside Glucose (other) 282 mg/dl 252 mg/dl Blood Gas Sample Site Art Line Bedside Blood Gas pH (LAB) 7.30 Bedside Blood Gas pCO2 (LAB) 21 mmHg Bedside Blood Gas pO2 (LAB) 99 mmHg Bedside Blood Gas HCO3 (LAB) 11 meq/L Bedside Blood Gas Total CO2 12 mEq/l Bedside Blood Gas Base Excess (LAB) -16.0 meq/L Bedside Blood Gas O2 Saturation 98.0 % Amrik Test NA Oxygen Delivery Device Ventilator Bedside Oxygen Rate (breaths/min) 12 Blood Gas Minute Ventilation 6 Bedside FiO2 70 % Blood Gas Tidal Volume 500 Blood Gas PEEP 10 Test 03/24/17 22:15 03/24/17 23:08 03/24/17 23:41 03/24/17 23:50 Bedside Glucose (other) 222 mg/dl 205 mg/dl White Blood Count 21.84 K/uL Red Blood Count 3.83 M/uL Hemoglobin 11.7 g/dL Hematocrit 34.9 % Mean Corpuscular Volume 91.1 fL Mean Corpuscular Hemoglobin 30.5 pg Mean Corpuscular Hemoglobin Concent 33.5 g/dl Platelet Count 223 K/uL Mean Platelet Volume 10.6 fL Neutrophils (%) (Auto) 81.6 % Lymphocytes (%) (Auto) 10.2 % Monocytes (%) (Auto) 7.0 % Eosinophils (%) (Auto) 0.1 % Basophils (%) (Auto) 0.1 % Neutrophils # (Auto) 17.82 K/uL Lymphocytes # (Auto) 2.23 K/uL Monocytes # (Auto) 1.53 K/uL Eosinophils # (Auto) 0.03 K/uL Basophils # (Auto) 0.02 K/uL RDW Standard Deviation 48.2 fL RDW Coefficient of Variation 14.5 % Immature Granulocyte % (Auto) 1.0 % Immature Granulocyte # (Auto) 0.21 K/uL Toxic Vacuolation 1+ Echinocytes 2+ Prothrombin Time 11.9 SECONDS Prothromb Time International Ratio 1.1 Activated Partial Thromboplast Time 28.7 SECONDS Partial Thromboplastin Ratio 1.1 Sodium Level 144 mmol/L Potassium Level 2.9 mmol/L Chloride Level 111 mmol/L Carbon Dioxide Level 13 mmol/L Anion Gap 20.0 mmol/L Blood Urea Nitrogen 27 mg/dl Creatinine 1.95 mg/dl Estimated GFR () 40.4 Estimated GFR (Non- 34.8 BUN/Creatinine Ratio 13.9 Random Glucose 194 mg/dl Calcium Level 7.1 mg/dl Phosphorus Level 2.5 mg/dl Magnesium Level 1.7 mg/dl Troponin I > 200.000 ng/ml Blood Gas Sample Site Art Line Bedside Blood Gas pH (LAB) 7.39 Bedside Blood Gas pCO2 (LAB) 20 mmHg Bedside Blood Gas pO2 (LAB) 93 mmHg Bedside Blood Gas HCO3 (LAB) 13 meq/L Bedside Blood Gas Total CO2 13 mEq/l Bedside Blood Gas Base Excess (LAB) -13.0 meq/L Bedside Blood Gas O2 Saturation 98.0 % Amrik Test NA Oxygen Delivery Device Ventilator Bedside Oxygen Rate (breaths/min) 12 Blood Gas Minute Ventilation 6 Bedside FiO2 60 % Blood Gas Tidal Volume 500 Blood Gas PEEP 10 Test 03/25/17 01:23 03/25/17 03:01 03/25/17 03:56 03/25/17 03:58 Bedside Glucose (other) 152 mg/dl 134 mg/dl White Blood Count 19.09 K/uL Red Blood Count 3.33 M/uL Hemoglobin 10.3 g/dL Hematocrit 29.9 % Mean Corpuscular Volume 89.8 fL Mean Corpuscular Hemoglobin 30.9 pg Mean Corpuscular Hemoglobin Concent 34.4 g/dl Platelet Count 190 K/uL Mean Platelet Volume 10.5 fL Neutrophils (%) (Auto) 79.2 % Lymphocytes (%) (Auto) 10.0 % Monocytes (%) (Auto) 10.1 % Eosinophils (%) (Auto) 0.1 % Basophils (%) (Auto) 0.1 % Neutrophils # (Auto) 15.14 K/uL Lymphocytes # (Auto) 1.91 K/uL Monocytes # (Auto) 1.92 K/uL Eosinophils # (Auto) 0.01 K/uL Basophils # (Auto) 0.02 K/uL RDW Standard Deviation 47.6 fL RDW Coefficient of Variation 14.4 % Immature Granulocyte % (Auto) 0.5 % Immature Granulocyte # (Auto) 0.09 K/uL Echinocytes 2+ Prothrombin Time 11.4 SECONDS Prothromb Time International Ratio 1.1 Activated Partial Thromboplast Time 29.5 SECONDS Partial Thromboplastin Ratio 1.1 Sodium Level 143 mmol/L Potassium Level 3.8 mmol/L Chloride Level 110 mmol/L Carbon Dioxide Level 17 mmol/L Anion Gap 16.0 mmol/L Blood Urea Nitrogen 29 mg/dl Creatinine 1.96 mg/dl Est Creatinine Clear Calc Drug Dose 38.6 ml/min Estimated GFR () 40.1 Estimated GFR (Non- 34.6 BUN/Creatinine Ratio 15.0 Random Glucose 118 mg/dl Estimated Average Glucose 117 mg/dl Hemoglobin A1c 5.7 % Calcium Level 6.6 mg/dl Phosphorus Level 2.4 mg/dl Magnesium Level 2.3 mg/dl Triglycerides Level 56 mg/dl Cholesterol Level 75 mg/dl HDL Cholesterol 33 mg/dl LDL Cholesterol, Calculated 31 mg/dl VLDL Cholesterol, Calculated 11 mg/dl Cholesterol/HDL Ratio 2.3 Blood Gas Sample Site Art Line Bedside Blood Gas pH (LAB) 7.42 Bedside Blood Gas pCO2 (LAB) 24 mmHg Bedside Blood Gas pO2 (LAB) 126 mmHg Bedside Blood Gas HCO3 (LAB) 15 meq/L Bedside Blood Gas Total CO2 16 mEq/l Bedside Blood Gas Base Excess (LAB) -10.0 meq/L Bedside Blood Gas O2 Saturation 99.0 % Amrik Test NA Oxygen Delivery Device Ventilator Bedside Oxygen Rate (breaths/min) 12 Blood Gas Minute Ventilation 6 Bedside FiO2 60 % Blood Gas Tidal Volume 500 Blood Gas PEEP 5 Test 03/25/17 05:12 03/25/17 06:21 03/25/17 08:09 03/25/17 08:16 Bedside Glucose (other) 111 mg/dl 87 mg/dl Sodium Level 142 mmol/L 141 mmol/L Potassium Level 4.2 mmol/L 4.5 mmol/L Chloride Level 109 mmol/L 109 mmol/L Carbon Dioxide Level 16 mmol/L 17 mmol/L Anion Gap 17.0 mmol/L 15.0 mmol/L Blood Urea Nitrogen 31 mg/dl 34 mg/dl Creatinine 2.15 mg/dl 2.25 mg/dl Est Creatinine Clear Calc Drug Dose 35.2 ml/min 33.7 ml/min Estimated GFR () 35.9 34.0 Estimated GFR (Non- 30.9 29.3 BUN/Creatinine Ratio 14.5 14.9 Random Glucose 103 mg/dl 87 mg/dl Calcium Level 7.3 mg/dl 6.9 mg/dl White Blood Count 16.93 K/uL Red Blood Count 3.43 M/uL Hemoglobin 10.6 g/dL Hematocrit 30.6 % Mean Corpuscular Volume 89.2 fL Mean Corpuscular Hemoglobin 30.9 pg Mean Corpuscular Hemoglobin Concent 34.6 g/dl Platelet Count 192 K/uL Mean Platelet Volume 10.9 fL Neutrophils (%) (Auto) 81.0 % Lymphocytes (%) (Auto) 9.6 % Monocytes (%) (Auto) 9.1 % Eosinophils (%) (Auto) 0.0 % Basophils (%) (Auto) 0.1 % Neutrophils # (Auto) 13.71 K/uL Lymphocytes # (Auto) 1.62 K/uL Monocytes # (Auto) 1.54 K/uL Eosinophils # (Auto) 0.00 K/uL Basophils # (Auto) 0.02 K/uL RDW Standard Deviation 47.5 fL RDW Coefficient of Variation 14.5 % Immature Granulocyte % (Auto) 0.2 % Immature Granulocyte # (Auto) 0.04 K/uL Prothrombin Time 11.3 SECONDS Prothromb Time International Ratio 1.1 Activated Partial Thromboplast Time 30.8 SECONDS Partial Thromboplastin Ratio 1.2 Phosphorus Level 2.5 mg/dl Magnesium Level 2.2 mg/dl Troponin I > 200.000 ng/ml Test 03/25/17 08:29 03/25/17 09:09 03/25/17 10:13 Blood Gas Sample Site Art Line Bedside Blood Gas pH (LAB) 7.37 Bedside Blood Gas pCO2 (LAB) 26 mmHg Bedside Blood Gas pO2 (LAB) 62 mmHg Bedside Blood Gas HCO3 (LAB) 16 meq/L Bedside Blood Gas Total CO2 16 mEq/l Bedside Blood Gas Base Excess (LAB) -10.0 meq/L Bedside Blood Gas O2 Saturation 93.0 % Amrik Test NA Oxygen Delivery Device Ventilator Bedside Oxygen Rate (breaths/min) 12 Blood Gas Minute Ventilation 15.1 Bedside FiO2 40 % Blood Gas Tidal Volume 500 Blood Gas PEEP 5 Bedside Glucose (other) 84 mg/dl 79 mg/dl
[2017-03-25] MEDS: INSULIN REGULAR 250 UNITS in SODIUM CHLORIDE 0.9% 250ML 250 ML IV SCH (11:30)
[2017-03-25 12:04] LABS: BASO % 0.1 %; BASO ABS # 0.02 K/uL (0-0.2); COMPLETE YES; HEMATOCRIT 31.1 % (42-52); IG% 0.3 %; LYMPH % 7.7 %; LYMPH ABS # 1.26 K/uL (1.2-3.4); MEAN CELL VOLUME 88.6 fL (80-100); MEAN CORPUSCULAR HEMOGLOBIN 30.2 pg (25-34); MEAN CORPUSCULAR HGB CONC 34.1 g/dl (32-36); MEAN PLATELET VOLUME 10.8 fL (7.4-10.4); MONO % 10.5 %; NEUT % 81.4 %; PLATELET COUNT 179 K/uL (130-400); RED BLOOD COUNT 3.51 M/uL (4.7-6.1); WHITE BLOOD COUNT 16.34 K/uL (4.8-10.8)
[2017-03-25 12:15] LABS: PARTIAL THROMBOPLASTIN RATIO 1.2; PROTHROMBIN TIME (PATIENT) 11.2 SECONDS (9.0-12.0)
[2017-03-25 12:20] LABS: ISTAT ARTERIAL BLOOD GAS HCO3 17 meq/L (19-24); ISTAT ARTERIAL BLOOD GAS PCO2 30 mmHg (35-46); ISTAT ARTERIAL BLOOD GAS PO2 66 mmHg (80-95); ISTAT ARTERIAL BLOOD GAS pH 7.36 (7.35-7.45); ISTAT CARBON DIOXIDE 18 mEq/l (24-31); ISTAT DELIVERY SYSTEM Ventilator; ISTAT FIO2 50 %; ISTAT PEEP 5; ISTAT RATE 16; ISTAT SITE Art Line; VE 13.5; Vt 500
[2017-03-25 12:22] LABS: CALCIUM 7.5 mg/dl (8.5-10.1); CREATININE 2.44 mg/dl (0.60-1.40)
[2017-03-25] MEDS ORDERED: ALBUTEROL 0.5% NEB SOLN 2.5 MG/0.5 ML VIAL INH ONE (12:54)
[2017-03-25] MEDS ORDERED: DEXTROSE 50% 50 ML SYR IV ONE ×2 (13:00→21:25)
[2017-03-25] MEDS ORDERED: INSULIN HUMAN REGULAR IV STA (13:03)
[2017-03-25] MEDS ORDERED: INSULIN HUMAN REGULAR PER UNIT 8 UNITS in SYRINGE 7.92 ML IV SCH (13:30)
[2017-03-25] MEDS ORDERED: FUROSEMIDE INJ 80 MG in SYRINGE 0 ML IV ONE (13:45)
[2017-03-25] MEDS ORDERED: ALBUMIN HUMAN 25% 12.5 GM/50 ML VIAL IV ONE ×2 (15:30→21:30)
[2017-03-25 16:19] LABS: BASO % 0.1 %; BASO ABS # 0.02 K/uL (0-0.2); COMPLETE YES; HEMATOCRIT 29.5 % (42-52); IG% 0.5 %; LYMPH % 9.1 %; LYMPH ABS # 1.61 K/uL (1.2-3.4); MEAN CELL VOLUME 88.9 fL (80-100); MEAN CORPUSCULAR HEMOGLOBIN 30.1 pg (25-34); MEAN CORPUSCULAR HGB CONC 33.9 g/dl (32-36); MONO % 9.9 %; NEUT % 80.4 %; PLATELET COUNT 157 K/uL (130-400); RED BLOOD COUNT 3.32 M/uL (4.7-6.1); WHITE BLOOD COUNT 17.74 K/uL (4.8-10.8)
[2017-03-25 16:26] LABS: ISTAT ARTERIAL BLOOD GAS HCO3 17 meq/L (19-24); ISTAT ARTERIAL BLOOD GAS PCO2 32 mmHg (35-46); ISTAT ARTERIAL BLOOD GAS PO2 56 mmHg (80-95); ISTAT ARTERIAL BLOOD GAS pH 7.33 (7.35-7.45); ISTAT CARBON DIOXIDE 18 mEq/l (24-31); ISTAT DELIVERY SYSTEM Ventilator; ISTAT FIO2 50 %; ISTAT PEEP 5; ISTAT RATE 12; ISTAT SITE Art Line; VE 12.8; Vt 500
[2017-03-25 16:29] LABS: INR 1.1 (0.9-1.1); PARTIAL THROMBOPLASTIN RATIO 1.5; PROTHROMBIN TIME (PATIENT) 11.7 SECONDS (9.0-12.0)
[2017-03-25 16:36] LABS: BUN/CREATININE RATIO 14.7 (10-20); CALCIUM 7.3 mg/dl (8.5-10.1); CREATININE 2.75 mg/dl (0.60-1.40); MAGNESIUM 2.1 mg/dl (1.8-2.4); PHOSPHORUS 3.5 mg/dl (2.5-4.9); POTASSIUM 5.5 mmol/L (3.5-5.1)
[2017-03-25] MEDS ORDERED: ACETAZOLAMIDE IV INFUSION 500 MG in DEXTROSE 5% 100ML 100 ML IV STA (16:40)
--- NOTE | 2017-03-25 17:09 | Cardiology Follow-Up ---
Subjective Subjective Date of Service: Mar 25, 2017. Pt evaluation today including: conversation w/ patient, physical exam, chart review, lab review, review of studies, review of inpatient medication list Additional Details: Epistaxis overnight, Integrilin stopped No purposeful movements. Tele - converted from atrial fibrillation back to sinus rhythm overnight. No significant ventricular ectopy. Problem List Medical Problems: (1) Acute HI, inferior wall Status: Acute (2) Anemia Status: Chronic (3) Cardiac arrest Status: Acute (4) Closed rib fracture Status: Acute (5) Hypocalcemia Status: Acute (6) Obesity Status: Chronic (7) Pneumothorax on right Status: Acute (8) Ribs, multiple fractures Status: Acute (9) ST elevation (STEMI) myocardial infarction involving left anterior descending coronary artery Status: Acute (10) Ventricular tachycardia Status: Acute Review of Systems Abdomen: + pain Additional ROS Details: unable to be obtained Objective Vital Signs Last Vital Signs Documentation Date Time Temp Pulse Resp B/P (MAP) Pulse Ox O2 Delivery O2 Flow Rate FiO2 03/25/17 12:00 93 50 03/25/17 12:00 36.0 59 16 109/56 (73) Mechanical Ventilator 110/55 (73) 03/24/17 13:02 15.0 Physical Exam: General Appearance: + pertinent finding (No purposeful movemets) ENT: + pertinent finding (ETT tube in place. Nostrils packed) Respiratory/Chest: + rhonchi (coarse rhonchi throughout) Cardiovascular: regular rate, rhythm Abdomen: normal bowel sounds, soft, + hernia Extremities: no pedal edema, + pertinent finding (normal cap refill ) Neurologic/Psychiatric: + pertinent finding (No response to voice/painful stimuli) Skin: warm/dry Assessment and Plan 1. Post cardiac arrest 2. Acute LAD occlusion/Post PPCI with 3 LIN to LAD. 3. Suspected anoxic brain injury. 4. Oliguric renal failure 5. Respiratory failure 6. Anemia/Epistaxis 7. Pneumothorax post chest tube Hemodynamically and electrically stable overnight, now off pressors. Perfusion appears adequate. Increasing congestion on chest xray. +8L since admit. - Continued therapeutic hypothermia per ICU team - Continue amiodarone drip for 48 hrs. - Continue DAPT with ASA/Plavix; Integrilin drip finished. - Continue statin - Diuresis as necessary Will follow Medications: Current Inpatient Medications Medications (Trade) Dose Ordered Sig/Maxine Route Start Time Stop Time Status Last Admin Dose Admin Artificial Tears (Lacri-Lube Oph Oint) 1 appln Q2H PRN OPB 03/24/17 14:00 04/23/17 13:59 Midazolam HCl 250 ml @ 0 mls/hr Q0M PRN IV 03/24/17 13:55 04/23/17 13:54 03/25/17 11:22 2 MLS/HR Fentanyl Citrate 250 ml @ 0 mls/hr Q0M IV 03/24/17 13:55 04/07/17 13:54 03/25/17 10:42 10 MLS/HR Buspirone HCl (BusPAR TAB) 60 mg ONE PRN NG 03/24/17 14:00 04/23/17 13:59 03/25/17 02:44 60 MG Pantoprazole Sodium 40 mg/ Syringe 10 ml @ 5 mls/min Q24H IV 03/24/17 21:00 04/23/17 20:59 03/24/17 20:04 5 MLS/MIN Insulin Aspart (novoLOG ASPART) SLIDING SCALE PCHS SC 03/24/17 17:15 04/23/17 18:59 Miscellaneous Information ( Icu Electrolyte Replacement Protocol) 1 ea per protocol PRN N/A 03/24/17 14:15 03/31/17 14:14 Glucose (Glucose 40% Gel) 15-30 GRAMS 15 GRAMS... UD PRN PO 03/24/17 14:30 04/23/17 14:29 Glucose (Glucose Chew Tab) 1 tabs UD PRN PO 03/24/17 14:30 04/23/17 14:29 Dextrose (Dextrose 50% 50ML Syringe) 25-50ML OF 50% DW IV FOR... UD PRN IV 03/24/17 14:30 04/23/17 14:29 Glucagon (Glucagon Inj) 1 mg UD PRN SQ 03/24/17 14:30 04/23/17 14:29 Aspirin (Aspirin Chew) 81 mg QAM PO 03/25/17 09:00 04/24/17 08:59 03/25/17 10:03 81 MG Clopidogrel Bisulfate (plAVix TAB) 75 mg QAM PO 03/25/17 09:00 04/24/17 08:59 03/25/17 10:03 75 MG Atorvastatin Calcium (Lipitor Tab) 80 mg QAM PO 03/25/17 09:00 04/24/17 08:59 03/25/17 10:03 80 MG Amiodarone HCL/ Dextrose 200 ml @ 16.7 mls/hr [id number] IV 03/24/17 20:00 04/23/17 19:59 03/25/17 09:09 16.7 MLS/HR Norepinephrine Bitartrate 8 mg/ Dextrose 508 ml @ 0 mls/hr Q0M PRN IV 03/24/17 16:45 04/23/17 16:44 03/25/17 09:48 6.8 MLS/HR Miscellaneous Information (Order Awaiting Action) 1 ea QS N/A 03/25/17 00:00 04/24/17 00:00 03/24/17 22:48 1 EA Insulin Human Regular 250 units/ Sodium Chloride 252.5 ml @ 0 mls/hr DAILY@1130 IV 03/24/17 18:27 04/23/17 18:26 03/24/17 18:51 2.1 MLS/HR Potassium/ Phosphorus/Sodium (Phospha 250 Neutral 155-852-130 Mg) 1 tab Q4H PO 03/25/17 06:00 03/25/17 14:01 03/25/17 10:02 1 TAB Sodium Chloride 1,000 ml @ 50 mls/hr Q20H IV 03/25/17 09:30 04/24/17 09:29 03/25/17 09:29 50 MLS/HR Meperidine HCl (Demerol Inj) 25 mg Q2H PRN IV 03/25/17 09:45 04/08/17 09:44 Lab Results: 03/25/17 11:57 Red Blood Count 3.51, Mean Corpuscular Volume 88.6, Mean Corpuscular Hemoglobin 30.2, Mean Corpuscular Hemoglobin Concent 34.1, Mean Platelet Volume 10.8, Neutrophils (%) (Auto) 81.4, Lymphocytes (%) (Auto) 7.7, Monocytes (%) (Auto) 10.5, Eosinophils (%) (Auto) 0.0, Basophils (%) (Auto) 0.1, Neutrophils # (Auto ) 13.29, Lymphocytes # (Auto) 1.26, Monocytes # (Auto) 1.72, Eosinophils # (Auto ) 0.00, Basophils # (Auto) 0.02 03/25/17 11:57 Test 03/24/17 12:57 03/24/17 12:58 03/24/17 13:02 03/24/17 15:07 Bedside Troponin I 0.350 ng/ml (0-0.045) Bedside Lactic Acid Venous 9.43 mmol/L (0.90-1.70) Bedside Hemoglobin 8.8 g/dl (14.0-18.0) Bedside Hematocrit 26 % (42-52) Bedside Sodium 146 mEq/L (135-144) Bedside Potassium 2.8 mEq/L (3.3-5.0) Bedside Chloride 115 mEq/L (101-112) Bedside Total CO2 14 mEq/l (24-31) Bedside Blood Urea Nitrogen 10 mg/dl (7-18) Bedside Creatinine 0.9 mg/dl (0.6-1.3) Bedside Ionized Calcium (Lizy) 0.83 mmol/l (1.12-1.32) Kaolin Activated Coagulation Time 230 SECONDS (94-140) Test 03/24/17 17:14 03/24/17 19:30 03/24/17 19:36 03/24/17 23:41 Lactic Acid Level 8.0 mmol/L (0.4-2.0) Urine Color YELLOW Urine Appearance CLOUDY (CLEAR) Urine pH 5.5 (4.5-7.5) Urine Specific [place] 1.038 (1.000-1.030) Urine Protein 2+ (NEG) Urine Glucose (UA) 2+ (NEG) Urine Ketones TRACE (NEG) Urine Occult Blood 3+ (NEG) Urine Nitrite NEG (NEG) Urine Bilirubin NEG (NEG) Urine Urobilinogen NEG (NEG) Urine Leukocyte Esterase NEG (NEG) Urine WBC (Auto) 10-30 /hpf (0-5) Urine RBC (Auto) 0-4 /hpf (0-4) Urine Hyaline Casts (Auto) 5-10 /lpf (0-5) Urine Epithelial Cells (Auto) 5-10 /lpf (0-5) Urine Bacteria (Auto) NEG (NEG) Urine Renal Epithelial Cells 0-5 /lpf (0-5) Urine Crystals AMORPHOUS SEDIMENT (NONE Urine Pathogenic Casts 5-10 GRANULAR CASTS /lpf (0) Urine Yeast (Auto) (NONE PRSENT) Urine Opiates Screen NEG (NEG) Urine Methadone, Qualitative NEG (NEG) Urine Barbiturates NEG (NEG) Urine Phencyclidine (PCP) Level NEG (NEG) Ur Amphetamine/Methamphetamine NEG (NEG) MDMA (Ecstasy) Screen NEG (NEG) Urine Benzodiazepines Screen NEG (NEG) Urine Cocaine Metabolite NEG (NEG) Urine Marijuana (THC) NEG (NEG) Beta-Hydroxybutyric Acid 7.08 mg/dL (0.2-2.81) Toxic Vacuolation 1+ Test 03/25/17 03:56 03/25/17 08:09 03/25/17 11:57 03/25/17 12:00 Echinocytes 2+ Estimated Average Glucose 117 mg/dl Hemoglobin A1c 5.7 % (4.5-5.6) Triglycerides Level 56 mg/dl (0-150) Cholesterol Level 75 mg/dl (0-200) HDL Cholesterol 33 mg/dl LDL Cholesterol, Calculated 31 mg/dl VLDL Cholesterol, Calculated 11 mg/dl Cholesterol/HDL Ratio 2.3 Troponin I > 200.000 ng/ml White Blood Count 16.34 K/uL (4.8-10.8) Red Blood Count 3.51 M/uL (4.7-6.1) Hemoglobin 10.6 g/dL (14.0-18.0) Hematocrit 31.1 % (42-52) Mean Corpuscular Volume 88.6 fL (80-100) Mean Corpuscular Hemoglobin 30.2 pg (25-34) Mean Corpuscular Hemoglobin Concent 34.1 g/dl (32-36) Platelet Count 179 K/uL (130-400) Mean Platelet Volume 10.8 fL (7.4-10.4) Neutrophils (%) (Auto) 81.4 % Lymphocytes (%) (Auto) 7.7 % Monocytes (%) (Auto) 10.5 % Eosinophils (%) (Auto) 0.0 % Basophils (%) (Auto) 0.1 % Neutrophils # (Auto) 13.29 K/uL (1.4-6.5) Lymphocytes # (Auto) 1.26 K/uL (1.2-3.4) Monocytes # (Auto) 1.72 K/uL (0.11-0.59) Eosinophils # (Auto) 0.00 K/uL (0-0.5) Basophils # (Auto) 0.02 K/uL (0-0.2) RDW Standard Deviation 47.3 fL (36.4-46.3) RDW Coefficient of Variation 14.6 % (11.5-14.5) Immature Granulocyte % (Auto) 0.3 % Immature Granulocyte # (Auto) 0.05 K/uL (0.00-0.02) Prothrombin Time 11.2 SECONDS (9.0-12.0) Prothromb Time International Ratio 1.0 (0.9-1.1) Activated Partial Thromboplast Time 30.3 SECONDS (21.0-31.0) Partial Thromboplastin Ratio 1.2 Anion Gap 14.0 mmol/L (3-11) Est Creatinine Clear Calc Drug Dose 31.0 ml/min Estimated GFR () 30.8 Estimated GFR (Non- 26.6 BUN/Creatinine Ratio 15.0 (10-20) Calcium Level 7.5 mg/dl (8.5-10.1) Phosphorus Level 3.0 mg/dl (2.5-4.9) Magnesium Level 2.0 mg/dl (1.8-2.4) Blood Gas Sample Site Art Line Bedside Blood Gas pH (LAB) 7.36 (7.35-7.45) Bedside Blood Gas pCO2 (LAB) 30 mmHg (35-46) Bedside Blood Gas pO2 (LAB) 66 mmHg (80-95) Bedside Blood Gas HCO3 (LAB) 17 meq/L (19-24) Bedside Blood Gas Total CO2 18 mEq/l (24-31) Bedside Blood Gas Base Excess (LAB) -9.0 meq/L (-9-1.8) Bedside Blood Gas O2 Saturation 93.0 % (90-95) Amrik Test NA Oxygen Delivery Device Ventilator Bedside Oxygen Rate (breaths/min) 16 Blood Gas Minute Ventilation 13.5 Bedside FiO2 50 % Blood Gas Tidal Volume 500 Blood Gas PEEP 5 Test 03/25/17 12:07 Bedside Glucose (other) 90 mg/dl (70-99) Date/Time Source Procedure Growth Status 03/24/17 16:10 Nasal MRSA DNA Surveillance Screen - Final Specimen Negative for MRSA by DNA Probe Complete
--- NOTE | 2017-03-25 17:48 | Hospitalist Progress Note ---
Hospitalist Progress Note Date of Service Mar 25, 2017. Subjective Pt evaluation today including: conversation w/ family (Brother at the bedside) , lab review, conversation w/ community health consultant (extension service agent), review of inpatient medication list Voiding: miller catheter in place (with minimal urine output), incontinence ( thank you very much) Patient remains unresponsive despite not being on sedation when I saw him this morning. His kidney function continues to worsen has very minimal urine output. I discussed the case with the extension service agent who is thinking the prognosis is quite poor. I reviewed the neurology notes that think he likely sustained a significant anoxic brain injury. The brother was at the bedside and I explained the patient's condition and prognosis. The brother states that the patient's son told him the patient would never want to live on prolonged life support. Additional Comments: Unobtainable Objective Vital Signs Date Time Temp Pulse Resp B/P (MAP) Pulse Ox O2 Delivery O2 Flow Rate FiO2 03/25/17 17:00 35.0 57 16 95/56 (69) 93 Mechanical Ventilator 60 96/43 (60) 03/25/17 16:15 35.1 59 16 101/54 (70) 92 Mechanical Ventilator 50 110/54 (72) 03/25/17 16:00 50 03/25/17 16:00 93 50 03/25/17 15:39 50 03/25/17 15:00 35.3 65 16 95/51 (66) 90 Mechanical Ventilator 50 102/51 (68) 03/25/17 14:00 35.7 61 16 104/50 (68) 92 Mechanical Ventilator 50 122/48 (72) 03/25/17 13:00 58 17 93 Mechanical Ventilator 03/25/17 13:00 35.8 58 16 96/53 (67) 91 Mechanical Ventilator 50 104/50 (68) 03/25/17 12:00 93 50 03/25/17 12:00 50 03/25/17 12:00 36.0 59 16 109/56 (73) 92 Mechanical Ventilator 50 110/55 (73) 03/25/17 11:20 50 03/25/17 11:00 36.0 62 17 104/55 (71) 92 Mechanical Ventilator 50 108/56 (73) 03/25/17 10:00 36.0 62 16 103/60 (74) 93 Mechanical Ventilator 50 107/56 (73) 03/25/17 09:00 35.7 63 16 101/66 (78) 96 Mechanical Ventilator 50 116/58 (77) 03/25/17 08:25 50 03/25/17 08:00 Mechanical Ventilator 40 03/25/17 08:00 40 03/25/17 08:00 96 40 03/25/17 08:00 35.5 62 16 138/66 (90) 93 Mechanical Ventilator 40 03/25/17 07:45 40 03/25/17 07:00 35.2 63 16 114/60 (78) 95 Mechanical Ventilator 40 129/66 (87) 03/25/17 06:00 35.1 64 16 130/76 (94) 95 40 137/74 (95) 03/25/17 05:48 40 03/25/17 05:22 40 03/25/17 05:00 35.1 66 16 123/75 (91) 97 Mechanical Ventilator 40 143/75 (97) 03/25/17 04:02 40 03/25/17 04:00 40 03/25/17 04:00 35.1 65 16 129/81 (97) 100 Mechanical Ventilator 40 149/81 (103) 03/25/17 04:00 100 Mechanical Ventilator 40 03/25/17 03:00 34.8 61 15 116/41 (66) 99 Mechanical Ventilator 60 118/57 (77) 03/25/17 02:10 60 03/25/17 02:00 34.5 61 16 88/49 (62) 99 Mechanical Ventilator 60 114/64 (81) 03/25/17 01:00 33.9 63 14 88/64 (72) 100 Mechanical Ventilator 60 101/68 (79) 03/25/17 00:05 60 03/25/17 00:01 33.3 75 14 105/90 (95) 99 Mechanical Ventilator 60 107/74 (85) 03/24/17 23:59 60 03/24/17 23:59 96 Mechanical Ventilator 60 03/24/17 23:00 32.5 84 15 101/74 (83) 96 Mechanical Ventilator 60 113/72 (86) 03/24/17 22:00 32.0 76 15 104/70 (81) 99 60 90/79 (83) 03/24/17 21:00 32.2 72 14 84/64 (71) 99 98/67 (77) 03/24/17 20:36 60 03/24/17 20:00 99 Mechanical Ventilator 80 03/24/17 20:00 32.7 84 14 79/53 (62) 99 Mechanical Ventilator 80 94/57 (69) 03/24/17 20:00 80 03/24/17 19:48 80 03/24/17 19:20 32.9 84 14 73/51 (58) 99 Mechanical Ventilator 80 84/54 (64) 03/24/17 18:17 74 19 109/70 (89) 80/53 03/24/17 18:15 88 24 (79) 115/67 03/24/17 18:00 93 24 (84) 127/69 03/24/17 17:46 88 24 81/64 (70) 03/24/17 17:45 98 24 Physical Exam General Appearance: no apparent distress, + obese, + pertinent finding ( unresponsive to verbal and tactile stimulation, ET tube in place) ENT: + pertinent finding (small amount of epistaxis) Neck: trachea midline Respiratory/Chest: no respiratory distress, no accessory muscle use, + rhonchi (diffusely) Cardiovascular: regular rate, rhythm, no murmur, + pertinent finding (trace pitting edema to the knees bilaterally) Abdomen: normal bowel sounds, non tender, soft (softly distended, umbilical hernia easily reducible) Neurologic/Psychiatric: + pertinent finding (unresponsive) Skin: normal color, no rash Laboratory Results Last 24 Hours Test 03/24/17 18:11 03/24/17 19:30 03/24/17 19:36 03/24/17 20:15 Blood Gas Sample Site Art Line Bedside Blood Gas pH (LAB) 7.36 Bedside Blood Gas pCO2 (LAB) 24 mmHg Bedside Blood Gas pO2 (LAB) 121 mmHg Bedside Blood Gas HCO3 (LAB) 14 meq/L Bedside Blood Gas Total CO2 14 mEq/l Bedside Blood Gas Base Excess (LAB) -12.0 meq/L Bedside Blood Gas O2 Saturation 99.0 % Amrik Test NA Oxygen Delivery Device Ventilator Bedside Oxygen Rate (breaths/min) 16 Blood Gas Minute Ventilation 8 Bedside FiO2 80 % Blood Gas Tidal Volume 500 Blood Gas PEEP 10 Urine Color YELLOW Urine Appearance CLOUDY Urine pH 5.5 Urine Specific Tyler 1.038 Urine Protein 2+ Urine Glucose (UA) 2+ Urine Ketones TRACE Urine Occult Blood 3+ Urine Nitrite NEG Urine Bilirubin NEG Urine Urobilinogen NEG Urine Leukocyte Esterase NEG Urine WBC (Auto) 10-30 /hpf Urine RBC (Auto) 0-4 /hpf Urine Hyaline Casts (Auto) 5-10 /lpf Urine Epithelial Cells (Auto) 5-10 /lpf Urine Bacteria (Auto) NEG Urine Renal Epithelial Cells 0-5 /lpf Urine Crystals AMORPHOUS SEDIMENT Urine Pathogenic Casts 5-10 GRANULAR CASTS /lpf Urine Yeast (Auto) Urine Opiates Screen NEG Urine Methadone, Qualitative NEG Urine Barbiturates NEG Urine Phencyclidine (PCP) Level NEG Ur Amphetamine/Methamphetamine NEG MDMA (Ecstasy) Screen NEG Urine Benzodiazepines Screen NEG Urine Cocaine Metabolite NEG Urine Marijuana (THC) NEG White Blood Count 24.53 K/uL Red Blood Count 3.95 M/uL Hemoglobin 12.3 g/dL Hematocrit 36.2 % Mean Corpuscular Volume 91.6 fL Mean Corpuscular Hemoglobin 31.1 pg Mean Corpuscular Hemoglobin Concent 34.0 g/dl Platelet Count 221 K/uL Mean Platelet Volume 10.5 fL Neutrophils (%) (Auto) 82.0 % Lymphocytes (%) (Auto) 10.6 % Monocytes (%) (Auto) 6.3 % Eosinophils (%) (Auto) 0.2 % Basophils (%) (Auto) 0.2 % Neutrophils # (Auto) 20.14 K/uL Lymphocytes # (Auto) 2.59 K/uL Monocytes # (Auto) 1.54 K/uL Eosinophils # (Auto) 0.06 K/uL Basophils # (Auto) 0.04 K/uL RDW Standard Deviation 48.8 fL RDW Coefficient of Variation 14.5 % Immature Granulocyte % (Auto) 0.7 % Immature Granulocyte # (Auto) 0.16 K/uL Echinocytes 2+ Prothrombin Time 12.3 SECONDS Prothromb Time International Ratio 1.1 Activated Partial Thromboplast Time 54.8 SECONDS Partial Thromboplastin Ratio 2.1 Sodium Level 143 mmol/L Potassium Level 3.0 mmol/L Chloride Level 110 mmol/L Carbon Dioxide Level 14 mmol/L Anion Gap 19.0 mmol/L Blood Urea Nitrogen 24 mg/dl Creatinine 1.89 mg/dl Estimated GFR () 41.9 Estimated GFR (Non- 36.2 BUN/Creatinine Ratio 12.9 Random Glucose 302 mg/dl Calcium Level 6.6 mg/dl Phosphorus Level 1.6 mg/dl Magnesium Level 1.8 mg/dl Beta-Hydroxybutyric Acid 7.08 mg/dL Bedside Glucose (other) 282 mg/dl Test 03/24/17 20:36 03/24/17 21:10 03/24/17 22:15 03/24/17 23:08 Blood Gas Sample Site Art Line Bedside Blood Gas pH (LAB) 7.30 Bedside Blood Gas pCO2 (LAB) 21 mmHg Bedside Blood Gas pO2 (LAB) 99 mmHg Bedside Blood Gas HCO3 (LAB) 11 meq/L Bedside Blood Gas Total CO2 12 mEq/l Bedside Blood Gas Base Excess (LAB) -16.0 meq/L Bedside Blood Gas O2 Saturation 98.0 % Amrik Test NA Oxygen Delivery Device Ventilator Bedside Oxygen Rate (breaths/min) 12 Blood Gas Minute Ventilation 6 Bedside FiO2 70 % Blood Gas Tidal Volume 500 Blood Gas PEEP 10 Bedside Glucose (other) 252 mg/dl 222 mg/dl 205 mg/dl Test 03/24/17 23:41 03/24/17 23:50 03/25/17 01:23 03/25/17 03:01 White Blood Count 21.84 K/uL Red Blood Count 3.83 M/uL Hemoglobin 11.7 g/dL Hematocrit 34.9 % Mean Corpuscular Volume 91.1 fL Mean Corpuscular Hemoglobin 30.5 pg Mean Corpuscular Hemoglobin Concent 33.5 g/dl Platelet Count 223 K/uL Mean Platelet Volume 10.6 fL Neutrophils (%) (Auto) 81.6 % Lymphocytes (%) (Auto) 10.2 % Monocytes (%) (Auto) 7.0 % Eosinophils (%) (Auto) 0.1 % Basophils (%) (Auto) 0.1 % Neutrophils # (Auto) 17.82 K/uL Lymphocytes # (Auto) 2.23 K/uL Monocytes # (Auto) 1.53 K/uL Eosinophils # (Auto) 0.03 K/uL Basophils # (Auto) 0.02 K/uL RDW Standard Deviation 48.2 fL RDW Coefficient of Variation 14.5 % Immature Granulocyte % (Auto) 1.0 % Immature Granulocyte # (Auto) 0.21 K/uL Toxic Vacuolation 1+ Echinocytes 2+ Prothrombin Time 11.9 SECONDS Prothromb Time International Ratio 1.1 Activated Partial Thromboplast Time 28.7 SECONDS Partial Thromboplastin Ratio 1.1 Sodium Level 144 mmol/L Potassium Level 2.9 mmol/L Chloride Level 111 mmol/L Carbon Dioxide Level 13 mmol/L Anion Gap 20.0 mmol/L Blood Urea Nitrogen 27 mg/dl Creatinine 1.95 mg/dl Estimated GFR () 40.4 Estimated GFR (Non- 34.8 BUN/Creatinine Ratio 13.9 Random Glucose 194 mg/dl Calcium Level 7.1 mg/dl Phosphorus Level 2.5 mg/dl Magnesium Level 1.7 mg/dl Troponin I > 200.000 ng/ml Blood Gas Sample Site Art Line Bedside Blood Gas pH (LAB) 7.39 Bedside Blood Gas pCO2 (LAB) 20 mmHg Bedside Blood Gas pO2 (LAB) 93 mmHg Bedside Blood Gas HCO3 (LAB) 13 meq/L Bedside Blood Gas Total CO2 13 mEq/l Bedside Blood Gas Base Excess (LAB) -13.0 meq/L Bedside Blood Gas O2 Saturation 98.0 % Amrik Test NA Oxygen Delivery Device Ventilator Bedside Oxygen Rate (breaths/min) 12 Blood Gas Minute Ventilation 6 Bedside FiO2 60 % Blood Gas Tidal Volume 500 Blood Gas PEEP 10 Bedside Glucose (other) 152 mg/dl 134 mg/dl Test 03/25/17 03:56 03/25/17 03:58 03/25/17 05:12 03/25/17 06:21 White Blood Count 19.09 K/uL Red Blood Count 3.33 M/uL Hemoglobin 10.3 g/dL Hematocrit 29.9 % Mean Corpuscular Volume 89.8 fL Mean Corpuscular Hemoglobin 30.9 pg Mean Corpuscular Hemoglobin Concent 34.4 g/dl Platelet Count 190 K/uL Mean Platelet Volume 10.5 fL Neutrophils (%) (Auto) 79.2 % Lymphocytes (%) (Auto) 10.0 % Monocytes (%) (Auto) 10.1 % Eosinophils (%) (Auto) 0.1 % Basophils (%) (Auto) 0.1 % Neutrophils # (Auto) 15.14 K/uL Lymphocytes # (Auto) 1.91 K/uL Monocytes # (Auto) 1.92 K/uL Eosinophils # (Auto) 0.01 K/uL Basophils # (Auto) 0.02 K/uL RDW Standard Deviation 47.6 fL RDW Coefficient of Variation 14.4 % Immature Granulocyte % (Auto) 0.5 % Immature Granulocyte # (Auto) 0.09 K/uL Echinocytes 2+ Prothrombin Time 11.4 SECONDS Prothromb Time International Ratio 1.1 Activated Partial Thromboplast Time 29.5 SECONDS Partial Thromboplastin Ratio 1.1 Sodium Level 143 mmol/L 142 mmol/L Potassium Level 3.8 mmol/L 4.2 mmol/L Chloride Level 110 mmol/L 109 mmol/L Carbon Dioxide Level 17 mmol/L 16 mmol/L Anion Gap 16.0 mmol/L 17.0 mmol/L Blood Urea Nitrogen 29 mg/dl 31 mg/dl Creatinine 1.96 mg/dl 2.15 mg/dl Est Creatinine Clear Calc Drug Dose 38.6 ml/min 35.2 ml/min Estimated GFR () 40.1 35.9 Estimated GFR (Non- 34.6 30.9 BUN/Creatinine Ratio 15.0 14.5 Random Glucose 118 mg/dl 103 mg/dl Estimated Average Glucose 117 mg/dl Hemoglobin A1c 5.7 % Calcium Level 6.6 mg/dl 7.3 mg/dl Phosphorus Level 2.4 mg/dl Magnesium Level 2.3 mg/dl Triglycerides Level 56 mg/dl Cholesterol Level 75 mg/dl HDL Cholesterol 33 mg/dl LDL Cholesterol, Calculated 31 mg/dl VLDL Cholesterol, Calculated 11 mg/dl Cholesterol/HDL Ratio 2.3 Blood Gas Sample Site Art Line Bedside Blood Gas pH (LAB) 7.42 Bedside Blood Gas pCO2 (LAB) 24 mmHg Bedside Blood Gas pO2 (LAB) 126 mmHg Bedside Blood Gas HCO3 (LAB) 15 meq/L Bedside Blood Gas Total CO2 16 mEq/l Bedside Blood Gas Base Excess (LAB) -10.0 meq/L Bedside Blood Gas O2 Saturation 99.0 % Amrik Test NA Oxygen Delivery Device Ventilator Bedside Oxygen Rate (breaths/min) 12 Blood Gas Minute Ventilation 6 Bedside FiO2 60 % Blood Gas Tidal Volume 500 Blood Gas PEEP 5 Bedside Glucose (other) 111 mg/dl Test 03/25/17 08:09 03/25/17 08:16 03/25/17 08:29 03/25/17 09:09 White Blood Count 16.93 K/uL Red Blood Count 3.43 M/uL Hemoglobin 10.6 g/dL Hematocrit 30.6 % Mean Corpuscular Volume 89.2 fL Mean Corpuscular Hemoglobin 30.9 pg Mean Corpuscular Hemoglobin Concent 34.6 g/dl Platelet Count 192 K/uL Mean Platelet Volume 10.9 fL Neutrophils (%) (Auto) 81.0 % Lymphocytes (%) (Auto) 9.6 % Monocytes (%) (Auto) 9.1 % Eosinophils (%) (Auto) 0.0 % Basophils (%) (Auto) 0.1 % Neutrophils # (Auto) 13.71 K/uL Lymphocytes # (Auto) 1.62 K/uL Monocytes # (Auto) 1.54 K/uL Eosinophils # (Auto) 0.00 K/uL Basophils # (Auto) 0.02 K/uL RDW Standard Deviation 47.5 fL RDW Coefficient of Variation 14.5 % Immature Granulocyte % (Auto) 0.2 % Immature Granulocyte # (Auto) 0.04 K/uL Prothrombin Time 11.3 SECONDS Prothromb Time International Ratio 1.1 Activated Partial Thromboplast Time 30.8 SECONDS Partial Thromboplastin Ratio 1.2 Sodium Level 141 mmol/L Potassium Level 4.5 mmol/L Chloride Level 109 mmol/L Carbon Dioxide Level 17 mmol/L Anion Gap 15.0 mmol/L Blood Urea Nitrogen 34 mg/dl Creatinine 2.25 mg/dl Est Creatinine Clear Calc Drug Dose 33.7 ml/min Estimated GFR () 34.0 Estimated GFR (Non- 29.3 BUN/Creatinine Ratio 14.9 Random Glucose 87 mg/dl Calcium Level 6.9 mg/dl Phosphorus Level 2.5 mg/dl Magnesium Level 2.2 mg/dl Troponin I > 200.000 ng/ml Bedside Glucose (other) 87 mg/dl 84 mg/dl Blood Gas Sample Site Art Line Bedside Blood Gas pH (LAB) 7.37 Bedside Blood Gas pCO2 (LAB) 26 mmHg Bedside Blood Gas pO2 (LAB) 62 mmHg Bedside Blood Gas HCO3 (LAB) 16 meq/L Bedside Blood Gas Total CO2 16 mEq/l Bedside Blood Gas Base Excess (LAB) -10.0 meq/L Bedside Blood Gas O2 Saturation 93.0 % Amrik Test NA Oxygen Delivery Device Ventilator Bedside Oxygen Rate (breaths/min) 12 Blood Gas Minute Ventilation 15.1 Bedside FiO2 40 % Blood Gas Tidal Volume 500 Blood Gas PEEP 5 Test 03/25/17 10:13 03/25/17 11:12 03/25/17 11:57 03/25/17 12:00 Bedside Glucose (other) 79 mg/dl 85 mg/dl White Blood Count 16.34 K/uL Red Blood Count 3.51 M/uL Hemoglobin 10.6 g/dL Hematocrit 31.1 % Mean Corpuscular Volume 88.6 fL Mean Corpuscular Hemoglobin 30.2 pg Mean Corpuscular Hemoglobin Concent 34.1 g/dl Platelet Count 179 K/uL Mean Platelet Volume 10.8 fL Neutrophils (%) (Auto) 81.4 % Lymphocytes (%) (Auto) 7.7 % Monocytes (%) (Auto) 10.5 % Eosinophils (%) (Auto) 0.0 % Basophils (%) (Auto) 0.1 % Neutrophils # (Auto) 13.29 K/uL Lymphocytes # (Auto) 1.26 K/uL Monocytes # (Auto) 1.72 K/uL Eosinophils # (Auto) 0.00 K/uL Basophils # (Auto) 0.02 K/uL RDW Standard Deviation 47.3 fL RDW Coefficient of Variation 14.6 % Immature Granulocyte % (Auto) 0.3 % Immature Granulocyte # (Auto) 0.05 K/uL Prothrombin Time 11.2 SECONDS Prothromb Time International Ratio 1.0 Activated Partial Thromboplast Time 30.3 SECONDS Partial Thromboplastin Ratio 1.2 Sodium Level 139 mmol/L Potassium Level 6.0 mmol/L Chloride Level 108 mmol/L Carbon Dioxide Level 17 mmol/L Anion Gap 14.0 mmol/L Blood Urea Nitrogen 37 mg/dl Creatinine 2.44 mg/dl Est Creatinine Clear Calc Drug Dose 31.0 ml/min Estimated GFR () 30.8 Estimated GFR (Non- 26.6 BUN/Creatinine Ratio 15.0 Random Glucose 92 mg/dl Calcium Level 7.5 mg/dl Phosphorus Level 3.0 mg/dl Magnesium Level 2.0 mg/dl Blood Gas Sample Site Art Line Bedside Blood Gas pH (LAB) 7.36 Bedside Blood Gas pCO2 (LAB) 30 mmHg Bedside Blood Gas pO2 (LAB) 66 mmHg Bedside Blood Gas HCO3 (LAB) 17 meq/L Bedside Blood Gas Total CO2 18 mEq/l Bedside Blood Gas Base Excess (LAB) -9.0 meq/L Bedside Blood Gas O2 Saturation 93.0 % Amrik Test NA Oxygen Delivery Device Ventilator Bedside Oxygen Rate (breaths/min) 16 Blood Gas Minute Ventilation 13.5 Bedside FiO2 50 % Blood Gas Tidal Volume 500 Blood Gas PEEP 5 Test 03/25/17 12:07 03/25/17 16:07 03/25/17 16:14 Bedside Glucose (other) 90 mg/dl White Blood Count 17.74 K/uL Red Blood Count 3.32 M/uL Hemoglobin 10.0 g/dL Hematocrit 29.5 % Mean Corpuscular Volume 88.9 fL Mean Corpuscular Hemoglobin 30.1 pg Mean Corpuscular Hemoglobin Concent 33.9 g/dl Platelet Count 157 K/uL Mean Platelet Volume 11.0 fL Neutrophils (%) (Auto) 80.4 % Lymphocytes (%) (Auto) 9.1 % Monocytes (%) (Auto) 9.9 % Eosinophils (%) (Auto) 0.0 % Basophils (%) (Auto) 0.1 % Neutrophils # (Auto) 14.28 K/uL Lymphocytes # (Auto) 1.61 K/uL Monocytes # (Auto) 1.75 K/uL Eosinophils # (Auto) 0.00 K/uL Basophils # (Auto) 0.02 K/uL RDW Standard Deviation 47.7 fL RDW Coefficient of Variation 14.6 % Immature Granulocyte % (Auto) 0.5 % Immature Granulocyte # (Auto) 0.08 K/uL Prothrombin Time 11.7 SECONDS Prothromb Time International Ratio 1.1 Activated Partial Thromboplast Time 38.8 SECONDS Partial Thromboplastin Ratio 1.5 Sodium Level 140 mmol/L Potassium Level 5.5 mmol/L Chloride Level 108 mmol/L Carbon Dioxide Level 18 mmol/L Anion Gap 14.0 mmol/L Blood Urea Nitrogen 41 mg/dl Creatinine 2.75 mg/dl Est Creatinine Clear Calc Drug Dose 27.5 ml/min Estimated GFR () 26.6 Estimated GFR (Non- 23.0 BUN/Creatinine Ratio 14.7 Random Glucose 99 mg/dl Calcium Level 7.3 mg/dl Phosphorus Level 3.5 mg/dl Magnesium Level 2.1 mg/dl Blood Gas Sample Site Art Line Bedside Blood Gas pH (LAB) 7.33 Bedside Blood Gas pCO2 (LAB) 32 mmHg Bedside Blood Gas pO2 (LAB) 56 mmHg Bedside Blood Gas HCO3 (LAB) 17 meq/L Bedside Blood Gas Total CO2 18 mEq/l Bedside Blood Gas Base Excess (LAB) -9.0 meq/L Bedside Blood Gas O2 Saturation 90.0 % Amrik Test NA Oxygen Delivery Device Ventilator Bedside Oxygen Rate (breaths/min) 12 Blood Gas Minute Ventilation 12.8 Bedside FiO2 50 % Blood Gas Tidal Volume 500 Blood Gas PEEP 5 Assessment and Plan Pt is a 66 yo male with a h/o UC, who presented to the hospital via EMS after having chest pain followed by cardiac arrest. He was resuscitated at home first by a neighbor, and then by EMS. He had ROSC after approx 20 min at home, then arrested again en route to the hospital and again achieved ROSC. He had a PTX on the right on arrival with placement of a chest tube. He was stabilized and taken to the lab intern where he had a stent placed to the LAD. He was then transported to the ICU and is undergoing hypothermic protocol. EEG shows evidence of severe encephalopathy STEMI/Cardiac arrest/CAD s/p LIN to LAD/Atrial fibrillation-> was on integrilin gtt, loaded with ASA and Plavix. Now on therapeutic hypothermia protocol. Prognosis very poor at this point with evidence of significant and anoxic brain injury. Remains unresponsive on no sedation. -Continue in ICU for critical status, ventilator management -continue ASA, Plavix -Appreciate Cardiology management -Therapeutic hypothermia per ICU team and will begin warming today -Continue amiodarone infusion for paroxysmal A-fib -Trend troponins until peak-currently a greater than 200 -Echocardiogram with a very difficult study-grossly normal LV function with akinetic apex -High-dose statin -Appreciate Mushroom Cutter Management -Discussed with extension service agent today and given worsening multiorgan system failure , he is considering discussion with family of withdrawing life support soon rather than waiting 72 hours to wait for improvement as prognosis seems grim Hypokalemia/Hypocalcemia/Hypophosphatemia/Metabolic acidosis/DIANA--> all in setting of cardiac arrest. Creatinine continues to rise throughout today and has very low urine output -replace lytes as per ICU team -follow labs Right sided PTX s/p likely traumatic PTX from chest compressions/rib fracture- chest tube in place -chest tube management as per ICU Hyperglycemia- in setting of high stress, hemoglobin A1c is normal -insulin gtt, accuchecks Elevated TSH-TSH 10 on admission -follow in non acute setting Ulcerative colitis-no current issues Proph-SCDs Dispo-FULL CODE
[2017-03-25 20:18] LABS: HEMATOCRIT 28.8 % (42-52); MEAN CELL VOLUME 91.1 fL (80-100); MEAN CORPUSCULAR HEMOGLOBIN 30.1 pg (25-34); MEAN PLATELET VOLUME 10.9 fL (7.4-10.4); PLATELET COUNT 148 K/uL (130-400); RED BLOOD COUNT 3.16 M/uL (4.7-6.1); WHITE BLOOD COUNT 18.97 K/uL (4.8-10.8)
[2017-03-25 20:24] LABS: ISTAT ARTERIAL BLOOD GAS HCO3 18 meq/L (19-24); ISTAT ARTERIAL BLOOD GAS PCO2 39 mmHg (35-46); ISTAT ARTERIAL BLOOD GAS PO2 72 mmHg (80-95); ISTAT ARTERIAL BLOOD GAS pH 7.27 (7.35-7.45); ISTAT CARBON DIOXIDE 19 mEq/l (24-31); ISTAT DELIVERY SYSTEM Ventilator; ISTAT FIO2 60 %; ISTAT PEEP 5; ISTAT RATE 12; ISTAT SITE Art Line; Vt 500
[2017-03-25 20:27] LABS: INR 1.1 (0.9-1.1); PARTIAL THROMBOPLASTIN RATIO 1.4; PROTHROMBIN TIME (PATIENT) 11.8 SECONDS (9.0-12.0)
[2017-03-25 20:41] LABS: BASO % 0.2 %; BASO ABS # 0.03 K/uL (0-0.2); COMPLETE YES; ECHINOCYTES 2+; EOS % 0.1 %; IG% 0.4 %; LYMPH % 7.9 %; LYMPH ABS # 1.49 K/uL (1.2-3.4); NEUT % 83.4 %
[2017-03-25 20:47] LABS: BUN/CREATININE RATIO 14.4 (10-20); CALCIUM 6.8 mg/dl (8.5-10.1); CREATININE 2.94 mg/dl (0.60-1.40); PHOSPHORUS 3.7 mg/dl (2.5-4.9); POTASSIUM 6.3 mmol/L (3.5-5.1)
[2017-03-25] MEDS ORDERED: ALBUTEROL 0.5% NEB SOLN 2.5 MG/0.5 ML VIAL INH STA (20:58)
[2017-03-25] MEDS ORDERED: INSULIN HUMAN REGULAR PER UNIT 8 UNITS in SYRINGE 7.92 ML IV ONE (21:30)
[2017-03-25] MEDS ORDERED: CALCIUM GLUCONATE 10% 1,000 MG in SODIUM CHLORIDE 0.9% 50ML 50 ML IV ONE (21:30)
[2017-03-25] MEDS ORDERED: FUROSEMIDE INJ 40 MG in SYRINGE 0 ML IV ONE (21:30)
[2017-03-25] MEDS: DEXTROSE 10% IV SCH (21:53)
[2017-03-25] MEDS: SODIUM BICARBONATE IV SCH (21:53)
[2017-03-25] MEDS: PANTOprazole INJ 40 MG in SYRINGE 0 ML IV SCH (21:55)
[2017-03-25 23:28] LABS: MEAN CELL VOLUME 91.2 fL (80-100); MEAN CORPUSCULAR HEMOGLOBIN 30.5 pg (25-34); MEAN CORPUSCULAR HGB CONC 33.5 g/dl (32-36); MEAN PLATELET VOLUME 10.7 fL (7.4-10.4); PLATELET COUNT 139 K/uL (130-400); RED BLOOD COUNT 2.85 M/uL (4.7-6.1); WHITE BLOOD COUNT 17.21 K/uL (4.8-10.8)
[2017-03-25 23:38] LABS: INR 1.2 (0.9-1.1); PARTIAL THROMBOPLASTIN RATIO 1.5; PROTHROMBIN TIME (PATIENT) 12.7 SECONDS (9.0-12.0)
[2017-03-25 23:49] LABS: COMPLETE YES; ECHINOCYTES 1+; LYMPH ABS # 1.05 K/uL (1.2-3.4); LYMPHOCYTE % 6.1 %; META ABS # 0.45 K/uL (0-0); METAMYELOCYTE % 2.6 %; NEUTROPHILS % 84.3 %
[2017-03-26] VITALS (44 sets, daily range): BP systolic 66–140; BP diastolic 43–78; PULSE 70–144; TEMP 35.6–36.8; O2SAT 87–100
[2017-03-26 00:14] LABS: CALCIUM 6.9 mg/dl (8.5-10.1); CREATININE 3.2 mg/dl (0.60-1.40); POTASSIUM 5.1 mmol/L (3.5-5.1)
[2017-03-26 00:28] LABS: ISTAT ARTERIAL BLOOD GAS HCO3 18 meq/L (19-24); ISTAT ARTERIAL BLOOD GAS PCO2 34 mmHg (35-46); ISTAT ARTERIAL BLOOD GAS PO2 87 mmHg (80-95); ISTAT ARTERIAL BLOOD GAS pH 7.33 (7.35-7.45); ISTAT CARBON DIOXIDE 19 mEq/l (24-31); ISTAT DELIVERY SYSTEM Ventilator; ISTAT FIO2 65 %; ISTAT PEEP 5; ISTAT RATE 12; ISTAT SITE Art Line; Vt 500
[2017-03-26 04:29] LABS: ISTAT ARTERIAL BLOOD GAS HCO3 20 meq/L (19-24); ISTAT ARTERIAL BLOOD GAS PCO2 42 mmHg (35-46); ISTAT ARTERIAL BLOOD GAS PO2 92 mmHg (80-95); ISTAT ARTERIAL BLOOD GAS pH 7.29 (7.35-7.45); ISTAT CARBON DIOXIDE 21 mEq/l (24-31); ISTAT DELIVERY SYSTEM Ventilator; ISTAT FIO2 65 %; ISTAT PEEP 5; ISTAT RATE 12; ISTAT SITE Art Line; VE 6; Vt 500
[2017-03-26] MEDS ORDERED: DiphenhydrAMINE HCL 50 MG/ML VIAL ONE (04:39)
[2017-03-26] MEDS ORDERED: DiphenhydrAMINE HCL 50 MG/ML VIAL IV STA ×2 (04:42→04:47)
[2017-03-26] MEDS ORDERED: DiphenhydrAMINE INJ 25 MG in SYRINGE 0 ML IV ONE (04:45)
[2017-03-26 05:26] LABS: HEMATOCRIT 27.7 % (42-52); MEAN CELL VOLUME 90.8 fL (80-100); MEAN CORPUSCULAR HEMOGLOBIN 29.8 pg (25-34); MEAN CORPUSCULAR HGB CONC 32.9 g/dl (32-36); MEAN PLATELET VOLUME 10.5 fL (7.4-10.4); PLATELET COUNT 123 K/uL (130-400); RED BLOOD COUNT 3.05 M/uL (4.7-6.1); WHITE BLOOD COUNT 17.67 K/uL (4.8-10.8)
[2017-03-26 05:37] LABS: INR 1.2 (0.9-1.1); PARTIAL THROMBOPLASTIN RATIO 1.7; PROTHROMBIN TIME (PATIENT) 13.1 SECONDS (9.0-12.0)
[2017-03-26 05:50] LABS: COMPLETE YES; ECHINOCYTES 1+; LYMPH ABS # 1.25 K/uL (1.2-3.4); LYMPHOCYTE % 7.1 %; NEUTROPHILS % 82.2 %
[2017-03-26 06:04] LABS: BUN/CREATININE RATIO 14.4 (10-20); CALCIUM 6.7 mg/dl (8.5-10.1); CREATININE 3.47 mg/dl (0.60-1.40); MAGNESIUM 2.1 mg/dl (1.8-2.4); POTASSIUM 4.8 mmol/L (3.5-5.1)
--- NOTE | 2017-03-26 07:09 | DIAGNOSTIC IMAGING REPORT ---
CHEST ONE VIEW PORTABLE CLINICAL HISTORY: Respiratory failure COMPARISON STUDY: 03/25/2017 FINDINGS: There is an endotracheal tube positioned approximately 4 cm above the genaro. There is a nasogastric tube which extends into the stomach. There are progressive extensive bilateral pulmonary airspace opacities.[ There is a small right-sided chest tube. No pneumothorax is visualized. Trace pleural effusions are suspected. IMPRESSION: Slight progression in the extensive bilateral pulmonary airspace opacities Electronically signed by: Kenny David M.D. 03/26/2017 7:08 AM Dictated Date/Time: 03/26/2017 7:05 AM
[2017-03-26] MEDS: INSULIN ASPART 100 UNITS/ML 3 ML PEN SC SCH ×4 (08:00→21:49)
[2017-03-26 08:15] LABS: ISTAT ARTERIAL BLOOD GAS HCO3 23 meq/L (19-24); ISTAT ARTERIAL BLOOD GAS PCO2 59 mmHg (35-46); ISTAT ARTERIAL BLOOD GAS PO2 82 mmHg (80-95); ISTAT CARBON DIOXIDE 25 mEq/l (24-31); ISTAT DELIVERY SYSTEM Ventilator; ISTAT FIO2 65 %; ISTAT PEEP 5; ISTAT RATE 14; ISTAT SITE Art Line; VE 9.5; Vt 500
--- NOTE | 2017-03-26 08:47 | EEG Procedure Note ---
EEG Procedure Note Date of Service Mar 25, 2017. Start / End Times Start Time: 03/25/2017 at 10:31 AM End Time: 03/26/17 at 8:40AM Referring Physician Neville Metzger History This is a 66-year-old male status post cardiac arrest and hypothermia protocol. In rewarming taisha. Continues EEG per protocol to evaluate for sub clinical status epilepticus. Home Medication List Unable to Obtain Active Prescriptions or Reported Meds Inpatient Medication List Current Inpatient Medications Medications (Trade) Dose Ordered Sig/Maxine Route Start Time Stop Time Status Last Admin Dose Admin Artificial Tears (Lacri-Lube Oph Oint) 1 appln Q2H PRN OPB 03/24/17 14:00 04/23/17 13:59 Midazolam HCl 250 ml @ 0 mls/hr Q0M PRN IV 03/24/17 13:55 04/23/17 13:54 03/25/17 11:22 2 MLS/HR Fentanyl Citrate 250 ml @ 0 mls/hr Q0M IV 03/24/17 13:55 04/07/17 13:54 03/25/17 10:42 10 MLS/HR Buspirone HCl (BusPAR TAB) 60 mg ONE PRN NG 03/24/17 14:00 04/23/17 13:59 03/25/17 02:44 60 MG Pantoprazole Sodium 40 mg/ Syringe 10 ml @ 5 mls/min Q24H IV 03/24/17 21:00 04/23/17 20:59 03/25/17 21:55 5 MLS/MIN Insulin Aspart (novoLOG ASPART) SLIDING SCALE HS SC 03/24/17 17:15 04/23/17 18:59 Miscellaneous Information ( Icu Electrolyte Replacement Protocol) 1 ea per protocol PRN N/A 03/24/17 14:15 03/31/17 14:14 Glucose (Glucose 40% Gel) 15-30 GRAMS 15 GRAMS... UD PRN PO 03/24/17 14:30 04/23/17 14:29 Glucose (Glucose Chew Tab) 1 tabs UD PRN PO 03/24/17 14:30 04/23/17 14:29 Dextrose (Dextrose 50% 50ML Syringe) 25-50ML OF 50% DW IV FOR... UD PRN IV 03/24/17 14:30 04/23/17 14:29 Glucagon (Glucagon Inj) 1 mg UD PRN SQ 03/24/17 14:30 04/23/17 14:29 Aspirin (Aspirin Chew) 81 mg QAM PO 03/25/17 09:00 04/24/17 08:59 03/25/17 10:03 81 MG Clopidogrel Bisulfate (plAVix TAB) 75 mg QAM PO 03/25/17 09:00 04/24/17 08:59 03/25/17 10:03 75 MG Atorvastatin Calcium (Lipitor Tab) 80 mg QAM PO 03/25/17 09:00 04/24/17 08:59 03/25/17 10:03 80 MG Amiodarone HCL/ Dextrose 200 ml @ 16.7 mls/hr [id number] IV 03/24/17 20:00 04/23/17 19:59 03/25/17 21:52 16.7 MLS/HR Norepinephrine Bitartrate 8 mg/ Dextrose 508 ml @ 0 mls/hr Q0M PRN IV 03/24/17 16:45 04/23/17 16:44 03/25/17 17:25 6.4 MLS/HR Miscellaneous Information (Order Awaiting Action) 1 ea QS N/A 03/25/17 00:00 04/24/17 00:00 03/24/17 22:48 1 EA Insulin Human Regular 250 units/ Sodium Chloride 252.5 ml @ 0 mls/hr DAILY@1130 IV 03/24/17 18:27 04/23/17 18:26 03/24/17 18:51 2.1 MLS/HR Meperidine HCl (Demerol Inj) 25 mg Q2H PRN IV 03/25/17 09:45 04/08/17 09:44 Sodium Bicarbonate 150 meq/Dextrose 1,150 ml @ 75 mls/hr [id number] IV 03/25/17 21:30 04/24/17 21:29 03/25/17 21:53 75 MLS/HR Description This is a 21 electrode EEG with a single channel dedicated to limited EKG. The electrodes were placed in accordance with the International 10-20 system. Post processing with an event detection algorithm is applied to the continuous data collection for the purpose of identifying abnormal epochs. These detections are reviewed and all candidate seizures are processed for further analysis. Data is reviewed in its raw format and patient events are processed, edited and stored. Patient was unresponsive and intubated at the time of this recording. At the start of the recording the background was poorly organized. Background was diffusely attenuated with frequent intermittent low to moderate amplitude delta activity. Later on in the recording background activity became more suppressed with rare delta activity versus artifact. On video there is no clinical abnormal movement concerning for seizure. Interpretation This is an abnormal continuous video EEG secondary to diffuse background disorganization, attenuation/suppression, and low-moderate amplitude intermittent delta activity. There was no electrographic seizures or epileptiform discharges. Clinical Correlation This EEG indicates a severe encephalopathy of nonspecific etiology.
[2017-03-26] MEDS ORDERED: AMPICILLIN SOD/SULBACTAM SOD 3 GM VIAL IV ONE (09:15)
[2017-03-26] MEDS: ATORVASTATIN 40 MG TAB PO SCH (09:28)
[2017-03-26] MEDS: CLOPIDOGREL BISULFATE 75 MG TAB PO SCH (09:28)
[2017-03-26] MEDS: ASPIRIN 81 MG CHEW PO SCH (09:28)
--- NOTE | 2017-03-26 09:30 | Critical Care Progress Note ---
Critical Care Progress Note Date of Service Mar 26, 2017. ICU Day ICU Day Number: 3 Attending Nirav Subjective 66-year-old male who suffered a cardiac arrest secondary to an ST elevation SC of the left anterior descending coronary artery. Is in the ICU with multiorgan system failure. Has a poor prognosis. Yesterday evening at 8pm he was found to have a potassium of 6.3. He was then given an amp of d50, 8 units of insulin, calcium gluconate, 40mg lasix IV and 25 gram of albumin. He was started on D10 and bicarb at 75 mls/hr. His potassium improved to 5.1 and 4.8 on repeat testing. Overnight his temperature was rising too rapidly therefore he had his cooling blanket adjusted and had ice placed. His temperature rise slowed down and the patient is currently 36.5 degrees. At 320am he was started to be given a unit of PRBC due to a Hgb <10. His blood pressures decreased at 420 and his MAP was decreasing. He was given 2 units of benadryl and his levophed was increased to .25mcg to help improve his blood pressure. His blood was sent to the lab to investigate if he was having a transfusion reaction but he was not according to laboratory report He had improvement in his urine output overnight with 1L of UO. His BSG's have remained at stable in the 140's and he has not required the insulin drip to be turned back on. Patients EEG was read by Dr. So this morning and there was not concerning seizure activity; however the EEG was concerning for severe encephalopathy of nonspecific eitology Dr. Gastelum spoke to his son yesterday afternoon and they discussed that the son would want to give his father a fighting chance, but his father would definitely not want to be in a group home. Dr. Gastelum is going to be meeting with the patients son at 11am to discuss further patient management. Unable to obtain ROS as patient is intubated Objective GENERAL: Patient intubated. Does not appear to be in any apparent distress. The patient is intubated. He is making no real purposeful movement. Obese HEENT: Pupils fixed and dilated LUNGS: Coarse breath sounds bilaterally CARDIAC: RRR with no obvious murmurs heard ABDOMEN: soft EXTREMITIES: weak peripheral pulses but intact. Cap refill >4 seconds SKIN: no rashes noted, 7 setswana catheter in R femoral vein and chest tube inserted on R side of chest with drainage to floor Current SOFA Score SOFA Score Response (Comments) Value Platelets (x10) < 150 1 Bilirubin (mg/dL) < 1.2 0 Bita Coma Score < 6 4 Level of Hypotension Dopamine > 15 mcq or Epi > 0.1 mcq 4 Creatinine (mg/dL) 2.0 - 3.4 2 Total 11 Assessment & Plan Resident Physician Supervision Note: I was present with Dr. Isidoro Restrepo during the history and exam. I discussed the case with the resident and agree with the findings and plan as documented in the note. In summary, the patient is a unfortunate 66-year-old man who suffered cardiac arrest 2 days ago. 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 Patient remains critically ill in surgical intensive care unit. He remains intubated. Chest x- ray revealed progressively worsening bilateral airspace disease. Oxygen requirement gradually was climbing up from 60% to 100%. I increased. From 8- 15 cm. No significant secretions from endotracheal tube. Hemodynamically, patient remains hypotensive and requires norepinephrine drip which has been titrated up to 0.5 g/kilogram/minute. 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 We'll continue with aspirin and Plavix for drug-eluting stents. Patient developed sinus tachycardia at 128. It is likely related to progression of his brain injury and of vagal nerve. From a neurological perspective there was significant change of his EEG with monitor showing flat line. Neurologic examination revealed not reactive pupils , no corneal reflexes, present doll's eyes, no cough or gag reflex, no response to peripheral or painful stimulation while patient is off sedation. I suspect that patient progressed to brain . Unfortunately, according the hospital policy formal brain protocol could be performed only 72 hours following warming of the body. Acute renal failure, hyperkalemia which I treated again with insulin and glucose. Urine output improved with diuretics. Fluid balance was positive for 9 L. Patient has anemia which responded to transfusion of 1 unit of packed RBCs yesterday. There is mild thrombocytopenia, no active bleeding. Patient still has right-sided pigtail catheter for pneumothorax with increased drainage but no ear leak. I had an extensive conversation with patient's family including his son Richard who is his father's power of insulation cutter and former. Decision was made to proceed with comfort measures only in view of progression of brain injury. Patient peacefully at 11:11 PM. I spent totally 75 minutes of critical care time evaluating and managing this patient. Documented By: Antionette Gastelum ASSESSMENT: 66-year-old male who suffered a cardiac arrest secondary to an ST elevation SC of the left anterior descending coronary artery. Is in the ICU with multiorgan system failure. Has a poor prognosis. PLAN: NEURO therapeutic hypothermia protocol - current temp 36.5 continuous EEG monitoring - no epileptiform activity; however severe encephalopathy neuro on board- Dr. Tamar lara for shivering and demerol 25mv IV for shivering fentanyl for pain control midazolam for sedation RESP ABG this morning with pH of 7.2 and PC02 of 59 multiple rib fractures present from CPR fentanyl ordered for pain control current vent settings: tidal volume: 600ml, BPM: 14, PEEP: 5, %Fi02: [address] for pneumothorax CXR with bilateral infiltrates- likely aspiration pneumonia pre-hospitalization - unasyn IV started with altered dose to to decreased creatinine clearance CARDIAC ST elevation SC with 3 stents placed in LAD Amiodarone infusion stopped today per cardiology recommendations Lipid panel within normal limits Patient started on aspirin, plavix and lipitor received 120mg lasix yesterday, diamox once IV and albumin once IV 1 L of clear urine output overnight integrillin stopped due to bleeding HYUN held due to renal function [facility] protocol Echo with limited study, showed akinetic apex RENAL creatinine 3.45 with 1 L of urine output potassium was 6.3 and now 4.8 after medical management with insulin, lasix, calcium gluconate currently receiving 75mls/hr ID core temp of 35.1 and rising despite cooling blanket, goal 33-36 urine culture negative to date GI NPO gtube with low intermittent suction- dark blood suctioned from g tube hx of ulcerative colitis, on pantoprazole 40mg q24 elevated LFT's with AST 415 and ALT 127 HEME hgb stable at 9.1, blood pressure decreased when given unit overnight, hold transfusion for now hold on DVT prophylaxis due to bleeding aspirin and plavix started labs negative for transfusion reaction ENDO TSH >10 would need to follow as outpatient calcium 6.9 --> calcium chloride given IV yesterday. corrected calcium 8.2 recheck tomorrow HbA1c 5.7, bsgs well controlled, on insulin drip, currently held FULL CODE Access: 3 peripheral line and R groin sheath to be removed today Consults & Procedures Consultants: Dr. Nirav Salazar Procedures: Arterial line Chest tube ET tube Right femoral central line Data Medications: Current Inpatient Medications Medications (Trade) Dose Ordered Sig/Maxine Route Start Time Stop Time Status Last Admin Dose Admin Artificial Tears (Lacri-Lube Oph Oint) 1 appln Q2H PRN OPB 03/24/17 14:00 04/23/17 13:59 Midazolam HCl 250 ml @ 0 mls/hr Q0M PRN IV 03/24/17 13:55 04/23/17 13:54 03/25/17 11:22 2 MLS/HR Fentanyl Citrate 250 ml @ 0 mls/hr Q0M IV 03/24/17 13:55 04/07/17 13:54 03/25/17 10:42 10 MLS/HR Buspirone HCl (BusPAR TAB) 60 mg ONE PRN NG 03/24/17 14:00 04/23/17 13:59 03/25/17 02:44 60 MG Pantoprazole Sodium 40 mg/ Syringe 10 ml @ 5 mls/min Q24H IV 03/24/17 21:00 04/23/17 20:59 03/25/17 21:55 5 MLS/MIN Insulin Aspart (novoLOG ASPART) SLIDING SCALE PCHS SC 03/24/17 17:15 04/23/17 18:59 Miscellaneous Information ( Icu Electrolyte Replacement Protocol) 1 ea per protocol PRN N/A 03/24/17 14:15 03/31/17 14:14 Glucose (Glucose 40% Gel) 15-30 GRAMS 15 GRAMS... UD PRN PO 03/24/17 14:30 04/23/17 14:29 Glucose (Glucose Chew Tab) 1 tabs UD PRN PO 03/24/17 14:30 04/23/17 14:29 Dextrose (Dextrose 50% 50ML Syringe) 25-50ML OF 50% DW IV FOR... UD PRN IV 03/24/17 14:30 04/23/17 14:29 Glucagon (Glucagon Inj) 1 mg UD PRN SQ 03/24/17 14:30 04/23/17 14:29 Aspirin (Aspirin Chew) 81 mg QAM PO 03/25/17 09:00 04/24/17 08:59 03/25/17 10:03 81 MG Clopidogrel Bisulfate (plAVix TAB) 75 mg QAM PO 03/25/17 09:00 04/24/17 08:59 03/25/17 10:03 75 MG Atorvastatin Calcium (Lipitor Tab) 80 mg QAM PO 03/25/17 09:00 04/24/17 08:59 03/25/17 10:03 80 MG Amiodarone HCL/ Dextrose 200 ml @ 16.7 mls/hr [id number] IV 03/24/17 20:00 04/23/17 19:59 03/25/17 21:52 16.7 MLS/HR Norepinephrine Bitartrate 8 mg/ Dextrose 508 ml @ 0 mls/hr Q0M PRN IV 03/24/17 16:45 04/23/17 16:44 03/25/17 17:25 6.4 MLS/HR Miscellaneous Information (Order Awaiting Action) 1 ea QS N/A 03/25/17 00:00 04/24/17 00:00 03/24/17 22:48 1 EA Insulin Human Regular 250 units/ Sodium Chloride 252.5 ml @ 0 mls/hr DAILY@1130 IV 03/24/17 18:27 04/23/17 18:26 03/24/17 18:51 2.1 MLS/HR Meperidine HCl (Demerol Inj) 25 mg Q2H PRN IV 03/25/17 09:45 04/08/17 09:44 Sodium Bicarbonate 150 meq/Dextrose 1,150 ml @ 75 mls/hr [id number] IV 03/25/17 21:30 04/24/17 21:29 03/25/17 21:53 75 MLS/HR Vital Signs: Date Time Temp Pulse Resp B/P (MAP) Pulse Ox O2 Delivery O2 Flow Rate FiO2 03/26/17 08:00 Mechanical Ventilator 65 03/26/17 08:00 65 03/26/17 08:00 96 65 03/26/17 07:15 65 03/26/17 06:00 36.5 86 15 112/53 (72) 97 Mechanical Ventilator 65 121/54 (76) 03/26/17 05:29 65 03/26/17 05:10 81 12 (66) 91 104/47 03/26/17 05:01 83 14 140/66 (89) 94 119/52 03/26/17 05:00 36.4 83 13 114/52 (72) 94 Mechanical Ventilator 65 111/68 (82) 03/26/17 05:00 83 13 (71) 94 114/52 03/26/17 04:50 88 19 (65) 96 97/49 03/26/17 04:40 72 21 (59) 95 90/43 03/26/17 04:30 71 16 (59) 96 91/44 03/26/17 04:20 72 22 (61) 96 96/44 03/26/17 04:10 72 22 (64) 97 103/46 03/26/17 04:01 70 21 115/57 (74) 96 100/46 03/26/17 04:00 70 21 (63) 97 100/45 03/26/17 04:00 36.1 70 21 100/45 (63) 97 Mechanical Ventilator 65 102/45 (64) 03/26/17 04:00 96 Mechanical Ventilator 65 03/26/17 04:00 65 03/26/17 03:50 72 20 (65) 98 105/47 03/26/17 03:40 71 18 (65) 98 104/47 03/26/17 03:30 70 21 (66) 99 107/47 03/26/17 03:20 72 18 (72) 99 116/51 03/26/17 03:00 35.9 71 19 118/53 (74) 100 Mechanical Ventilator 65 117/52 (73) 03/26/17 02:16 65 03/26/17 02:00 35.7 71 17 116/51 (72) 100 Mechanical Ventilator 65 118/51 (73) 03/26/17 01:00 35.6 71 17 120/53 (75) 99 Mechanical Ventilator 65 115/51 (72) 03/26/17 00:00 35.6 74 18 133/55 (81) 98 Mechanical Ventilator 65 129/53 (78) 03/25/17 23:59 98 Mechanical Ventilator 65 03/25/17 23:59 65 03/25/17 23:03 65 03/25/17 23:00 35.9 77 18 129/53 (78) 98 Mechanical Ventilator 65 128/52 (77) 03/25/17 22:00 36.2 74 14 116/57 (76) 98 Mechanical Ventilator 65 92/45 (61) 03/25/17 21:13 59 18 96 Mechanical Ventilator 65 03/25/17 21:00 36.0 60 17 111/59 (76) 96 Mechanical Ventilator 65 97/47 (64) 03/25/17 20:01 35.7 59 18 107/58 (74) 95 Mechanical Ventilator 60 96/46 (63) 03/25/17 20:00 96 Mechanical Ventilator 60 03/25/17 20:00 60 03/25/17 19:55 65 03/25/17 19:45 60 03/25/17 19:00 35.2 58 16 101/47 (65) 94 Mechanical Ventilator 60 100/47 (64) 03/25/17 18:00 35.0 57 16 101/58 (72) 96 Mechanical Ventilator 60 93/43 (60) 03/25/17 17:35 60 03/25/17 17:00 35.0 57 16 95/56 (69) 93 Mechanical Ventilator 60 96/43 (60) 03/25/17 16:30 60 03/25/17 16:15 35.1 59 16 101/54 (70) 92 Mechanical Ventilator 50 110/54 (72) 03/25/17 16:00 50 03/25/17 16:00 93 50 03/25/17 15:39 50 03/25/17 15:00 35.3 65 16 95/51 (66) 90 Mechanical Ventilator 50 102/51 (68) 03/25/17 14:00 35.7 61 16 104/50 (68) 92 Mechanical Ventilator 50 122/48 (72) 03/25/17 13:00 58 17 93 Mechanical Ventilator 03/25/17 13:00 35.8 58 16 96/53 (67) 91 Mechanical Ventilator 50 104/50 (68) 03/25/17 12:00 93 50 03/25/17 12:00 50 03/25/17 12:00 36.0 59 16 109/56 (73) 92 Mechanical Ventilator 50 110/55 (73) 03/25/17 11:20 50 03/25/17 11:00 36.0 62 17 104/55 (71) 92 Mechanical Ventilator 50 108/56 (73) 10/30/17 10:00 36.0 62 16 103/60 (74) 93 Mechanical Ventilator 50 107/56 (73) Laboratory Results: Last 24 Hours Test 03/25/17 10:13 03/25/17 11:12 03/25/17 11:57 03/25/17 12:00 Bedside Glucose (other) 79 mg/dl 85 mg/dl White Blood Count 16.34 K/uL Red Blood Count 3.51 M/uL Hemoglobin 10.6 g/dL Hematocrit 31.1 % Mean Corpuscular Volume 88.6 fL Mean Corpuscular Hemoglobin 30.2 pg Mean Corpuscular Hemoglobin Concent 34.1 g/dl Platelet Count 179 K/uL Mean Platelet Volume 10.8 fL Neutrophils (%) (Auto) 81.4 % Lymphocytes (%) (Auto) 7.7 % Monocytes (%) (Auto) 10.5 % Eosinophils (%) (Auto) 0.0 % Basophils (%) (Auto) 0.1 % Neutrophils # (Auto) 13.29 K/uL Lymphocytes # (Auto) 1.26 K/uL Monocytes # (Auto) 1.72 K/uL Eosinophils # (Auto) 0.00 K/uL Basophils # (Auto) 0.02 K/uL RDW Standard Deviation 47.3 fL RDW Coefficient of Variation 14.6 % Immature Granulocyte % (Auto) 0.3 % Immature Granulocyte # (Auto) 0.05 K/uL Prothrombin Time 11.2 SECONDS Prothromb Time International Ratio 1.0 Activated Partial Thromboplast Time 30.3 SECONDS Partial Thromboplastin Ratio 1.2 Sodium Level 139 mmol/L Potassium Level 6.0 mmol/L Chloride Level 108 mmol/L Carbon Dioxide Level 17 mmol/L Anion Gap 14.0 mmol/L Blood Urea Nitrogen 37 mg/dl Creatinine 2.44 mg/dl Est Creatinine Clear Calc Drug Dose 31.0 ml/min Estimated GFR () 30.8 Estimated GFR (Non- 26.6 BUN/Creatinine Ratio 15.0 Random Glucose 92 mg/dl Calcium Level 7.5 mg/dl Phosphorus Level 3.0 mg/dl Magnesium Level 2.0 mg/dl Blood Gas Sample Site Art Line Bedside Blood Gas pH (LAB) 7.36 Bedside Blood Gas pCO2 (LAB) 30 mmHg Bedside Blood Gas pO2 (LAB) 66 mmHg Bedside Blood Gas HCO3 (LAB) 17 meq/L Bedside Blood Gas Total CO2 18 mEq/l Bedside Blood Gas Base Excess (LAB) -9.0 meq/L Bedside Blood Gas O2 Saturation 93.0 % Amrik Test NA Oxygen Delivery Device Ventilator Bedside Oxygen Rate (breaths/min) 16 Blood Gas Minute Ventilation 13.5 Bedside FiO2 50 % Blood Gas Tidal Volume 500 Blood Gas PEEP 5 Test 03/25/17 12:07 03/25/17 16:07 03/25/17 16:14 03/25/17 19:45 Bedside Glucose (other) 90 mg/dl White Blood Count 17.74 K/uL 18.97 K/uL Red Blood Count 3.32 M/uL 3.16 M/uL Hemoglobin 10.0 g/dL 9.5 g/dL Hematocrit 29.5 % 28.8 % Mean Corpuscular Volume 88.9 fL 91.1 fL Mean Corpuscular Hemoglobin 30.1 pg 30.1 pg Mean Corpuscular Hemoglobin Concent 33.9 g/dl 33.0 g/dl Platelet Count 157 K/uL 148 K/uL Mean Platelet Volume 11.0 fL 10.9 fL Neutrophils (%) (Auto) 80.4 % 83.4 % Lymphocytes (%) (Auto) 9.1 % 7.9 % Monocytes (%) (Auto) 9.9 % 8.0 % Eosinophils (%) (Auto) 0.0 % 0.1 % Basophils (%) (Auto) 0.1 % 0.2 % Neutrophils # (Auto) 14.28 K/uL 15.86 K/uL Lymphocytes # (Auto) 1.61 K/uL 1.49 K/uL Monocytes # (Auto) 1.75 K/uL 1.51 K/uL Eosinophils # (Auto) 0.00 K/uL 0.01 K/uL Basophils # (Auto) 0.02 K/uL 0.03 K/uL RDW Standard Deviation 47.7 fL 50.2 fL RDW Coefficient of Variation 14.6 % 15.1 % Immature Granulocyte % (Auto) 0.5 % 0.4 % Immature Granulocyte # (Auto) 0.08 K/uL 0.07 K/uL Prothrombin Time 11.7 SECONDS 11.8 SECONDS Prothromb Time International Ratio 1.1 1.1 Activated Partial Thromboplast Time 38.8 SECONDS 35.5 SECONDS Partial Thromboplastin Ratio 1.5 1.4 Sodium Level 140 mmol/L 138 mmol/L Potassium Level 5.5 mmol/L 6.3 mmol/L Chloride Level 108 mmol/L 106 mmol/L Carbon Dioxide Level 18 mmol/L 21 mmol/L Anion Gap 14.0 mmol/L 11.0 mmol/L Blood Urea Nitrogen 41 mg/dl 42 mg/dl Creatinine 2.75 mg/dl 2.94 mg/dl Est Creatinine Clear Calc Drug Dose 27.5 ml/min 25.8 ml/min Estimated GFR () 26.6 24.6 Estimated GFR (Non- 23.0 21.2 BUN/Creatinine Ratio 14.7 14.4 Random Glucose 99 mg/dl 116 mg/dl Calcium Level 7.3 mg/dl 6.8 mg/dl Phosphorus Level 3.5 mg/dl 3.7 mg/dl Magnesium Level 2.1 mg/dl 2.0 mg/dl Blood Gas Sample Site Art Line Bedside Blood Gas pH (LAB) 7.33 Bedside Blood Gas pCO2 (LAB) 32 mmHg Bedside Blood Gas pO2 (LAB) 56 mmHg Bedside Blood Gas HCO3 (LAB) 17 meq/L Bedside Blood Gas Total CO2 18 mEq/l Bedside Blood Gas Base Excess (LAB) -9.0 meq/L Bedside Blood Gas O2 Saturation 90.0 % Amrik Test NA Oxygen Delivery Device Ventilator Bedside Oxygen Rate (breaths/min) 12 Blood Gas Minute Ventilation 12.8 Bedside FiO2 50 % Blood Gas Tidal Volume 500 Blood Gas PEEP 5 Echinocytes 2+ Test 03/25/17 19:46 03/25/17 20:12 03/25/17 20:34 03/25/17 22:06 Bedside Glucose (other) 116 mg/dl 111 mg/dl 237 mg/dl Blood Gas Sample Site Art Line Bedside Blood Gas pH (LAB) 7.27 Bedside Blood Gas pCO2 (LAB) 39 mmHg Bedside Blood Gas pO2 (LAB) 72 mmHg Bedside Blood Gas HCO3 (LAB) 18 meq/L Bedside Blood Gas Total CO2 19 mEq/l Bedside Blood Gas Base Excess (LAB) -9.0 meq/L Bedside Blood Gas O2 Saturation 93.0 % Amrik Test NA Oxygen Delivery Device Ventilator Bedside Oxygen Rate (breaths/min) 12 Blood Gas Minute Ventilation 6.0 Bedside FiO2 60 % Blood Gas Tidal Volume 500 Blood Gas PEEP 5 Test 03/25/17 23:09 03/25/17 23:17 03/26/17 00:12 03/26/17 00:16 Bedside Glucose (other) 150 mg/dl 138 mg/dl White Blood Count 17.21 K/uL Red Blood Count 2.85 M/uL Hemoglobin 8.7 g/dL Hematocrit 26.0 % Mean Corpuscular Volume 91.2 fL Mean Corpuscular Hemoglobin 30.5 pg Mean Corpuscular Hemoglobin Concent 33.5 g/dl Platelet Count 139 K/uL Mean Platelet Volume 10.7 fL RDW Standard Deviation 50.9 fL RDW Coefficient of Variation 15.3 % Neutrophils % (Manual) 84.3 % Lymphocytes % (Manual) 6.1 % Monocytes % (Manual) 7.0 % Metamyelocytes % 2.6 % Neutrophils # (Manual) 14.51 K/uL Total Absolute Neutrophils 14.51 K/uL Lymphocytes # (Manual) 1.05 K/uL Total Absolute Lymphocytes 1.05 K/uL Monocytes # (Manual) 1.20 K/uL Metamyelocytes # 0.45 K/uL Echinocytes 1+ Prothrombin Time 12.7 SECONDS Prothromb Time International Ratio 1.2 Activated Partial Thromboplast Time 39.5 SECONDS Partial Thromboplastin Ratio 1.5 Sodium Level 139 mmol/L Potassium Level 5.1 mmol/L Chloride Level 106 mmol/L Carbon Dioxide Level 20 mmol/L Anion Gap 13.0 mmol/L Blood Urea Nitrogen 45 mg/dl Creatinine 3.20 mg/dl Est Creatinine Clear Calc Drug Dose 23.7 ml/min Estimated GFR () 22.2 Estimated GFR (Non- 19.1 BUN/Creatinine Ratio 14.0 Random Glucose 147 mg/dl Calcium Level 6.9 mg/dl Phosphorus Level 4.0 mg/dl Magnesium Level 2.0 mg/dl Blood Gas Sample Site Art Line Bedside Blood Gas pH (LAB) 7.33 Bedside Blood Gas pCO2 (LAB) 34 mmHg Bedside Blood Gas pO2 (LAB) 87 mmHg Bedside Blood Gas HCO3 (LAB) 18 meq/L Bedside Blood Gas Total CO2 19 mEq/l Bedside Blood Gas Base Excess (LAB) -8.0 meq/L Bedside Blood Gas O2 Saturation 97.0 % Amrik Test NA Oxygen Delivery Device Ventilator Bedside Oxygen Rate (breaths/min) 12 Blood Gas Minute Ventilation 6.0 Bedside FiO2 65 % Blood Gas Tidal Volume 500 Blood Gas PEEP 5 Test 03/26/17 01:17 03/26/17 02:20 03/26/17 03:15 03/26/17 04:13 Bedside Glucose (other) 143 mg/dl 142 mg/dl 142 mg/dl 143 mg/dl Test 03/26/17 04:18 03/26/17 05:00 03/26/17 05:14 03/26/17 05:21 Blood Gas Sample Site Art Line Bedside Blood Gas pH (LAB) 7.29 Bedside Blood Gas pCO2 (LAB) 42 mmHg Bedside Blood Gas pO2 (LAB) 92 mmHg Bedside Blood Gas HCO3 (LAB) 20 meq/L Bedside Blood Gas Total CO2 21 mEq/l Bedside Blood Gas Base Excess (LAB) -7.0 meq/L Bedside Blood Gas O2 Saturation 96.0 % Amrik Test NA Oxygen Delivery Device Ventilator Bedside Oxygen Rate (breaths/min) 12 Blood Gas Minute Ventilation 6 Bedside FiO2 65 % Blood Gas Tidal Volume 500 Blood Gas PEEP 5 Urine Occult Blood 3+ Urine RBC (Auto) 5-10 /hpf White Blood Count 17.67 K/uL Red Blood Count 3.05 M/uL Hemoglobin 9.1 g/dL Hematocrit 27.7 % Mean Corpuscular Volume 90.8 fL Mean Corpuscular Hemoglobin 29.8 pg Mean Corpuscular Hemoglobin Concent 32.9 g/dl Platelet Count 123 K/uL Mean Platelet Volume 10.5 fL RDW Standard Deviation 51.3 fL RDW Coefficient of Variation 15.6 % Neutrophils % (Manual) 82.2 % Lymphocytes % (Manual) 7.1 % Monocytes % (Manual) 10.7 % Neutrophils # (Manual) 14.52 K/uL Total Absolute Neutrophils 14.52 K/uL Lymphocytes # (Manual) 1.25 K/uL Total Absolute Lymphocytes 1.25 K/uL Monocytes # (Manual) 1.89 K/uL Echinocytes 1+ Prothrombin Time 13.1 SECONDS Prothromb Time International Ratio 1.2 Activated Partial Thromboplast Time 42.9 SECONDS Partial Thromboplastin Ratio 1.7 Sodium Level 139 mmol/L Potassium Level 4.8 mmol/L Chloride Level 105 mmol/L Carbon Dioxide Level 25 mmol/L Anion Gap 9.0 mmol/L Blood Urea Nitrogen 50 mg/dl Creatinine 3.47 mg/dl Est Creatinine Clear Calc Drug Dose 21.8 ml/min Estimated GFR () 20.1 Estimated GFR (Non- 17.4 BUN/Creatinine Ratio 14.4 Random Glucose 145 mg/dl Calcium Level 6.7 mg/dl Phosphorus Level 5.0 mg/dl Magnesium Level 2.1 mg/dl Total Bilirubin 0.7 mg/dl Direct Bilirubin 0.2 mg/dl Aspartate Amino Transf (AST/SGOT) 415 U/L Alanine Aminotransferase (ALT/SGPT) 127 U/L Alkaline Phosphatase 45 U/L Total Protein 4.8 gm/dl Albumin 2.2 gm/dl Fibrinogen 444 mg/dl Test 03/26/17 06:23 03/26/17 08:04 Bedside Glucose (other) 145 mg/dl Blood Gas Sample Site Art Line Bedside Blood Gas pH (LAB) 7.20 Bedside Blood Gas pCO2 (LAB) 59 mmHg Bedside Blood Gas pO2 (LAB) 82 mmHg Bedside Blood Gas HCO3 (LAB) 23 meq/L Bedside Blood Gas Total CO2 25 mEq/l Bedside Blood Gas Base Excess (LAB) -5.0 meq/L Bedside Blood Gas O2 Saturation 93.0 % Amrik Test NA Oxygen Delivery Device Ventilator Bedside Oxygen Rate (breaths/min) 14 Blood Gas Minute Ventilation 9.5 Bedside FiO2 65 % Blood Gas Tidal Volume 500 Blood Gas PEEP 5
[2017-03-26] MEDS ORDERED: METOPROLOL TARTRATE 1 MG/ML VIAL ONE (11:13)
[2017-03-26] MEDS: INSULIN REGULAR 250 UNITS in SODIUM CHLORIDE 0.9% 250ML 250 ML IV SCH (11:30)
--- NOTE | 2017-03-26 11:39 | Cardiology Follow-Up ---
Subjective Subjective Date of Service: Mar 26, 2017. Pt evaluation today including: conversation w/ patient, physical exam, chart review, lab review, review of studies, conversation w/ network security consultant, review of inpatient medication list Additional Details: Patient unresponsive this AM. Required increasing pressors overnight after blood transfusion. 1 L out yesterday with 40mg IV lasix. SCr continues to trend up. Problem List Medical Problems: (1) Acute SC, inferior wall Status: Acute (2) Anemia Status: Chronic (3) Cardiac arrest Status: Acute (4) Closed rib fracture Status: Acute (5) Hypocalcemia Status: Acute (6) Obesity Status: Chronic (7) Pneumothorax on right Status: Acute (8) Ribs, multiple fractures Status: Acute (9) ST elevation (STEMI) myocardial infarction involving left anterior descending coronary artery Status: Acute (10) Ventricular tachycardia Status: Acute Review of Systems Abdomen: + pain Objective Vital Signs Last Vital Signs Documentation Date Time Temp Pulse Resp B/P (MAP) Pulse Ox O2 Delivery O2 Flow Rate FiO2 03/26/17 08:00 Mechanical Ventilator 65 03/26/17 08:00 96 03/26/17 06:00 36.5 86 15 112/53 (72) 121/54 (76) 03/24/17 13:02 15.0 Physical Exam: General Appearance: no apparent distress, + obese, + pertinent finding ( unresponsive to verbal and tactile stimulation, ET tube in place) ENT: + pertinent finding (Packing in place bilaterally. ETT in place. ) Respiratory/Chest: no respiratory distress, no accessory muscle use, + rhonchi (diffuse - improved from yesterday) Cardiovascular: regular rate, rhythm, no murmur, + pertinent finding (trace pitting edema to the knees bilaterally) Abdomen: normal bowel sounds, non tender, soft (so) Extremities: no pedal edema, + pertinent finding (normal cap refill ) Neurologic/Psychiatric: + pertinent finding (unresponsive) Skin: normal color, no rash Assessment and Plan 1. Post cardiac arrest 2. Acute LAD occlusion/Post PPCI with 3 LIN to LAD. 3. Likely anoxic brain injury. 4. Oliguric renal failure 5. Respiratory failure 6. Anemia/Epistaxis 7. Pneumothorax post chest tube Stable pressor requirements. Perfusion appears adequate. Progressive renal failure Limited neurologic response - Can discontinue amiodarone drip today. - otherwise no changes to cardiac regimen - appreciate ICU/Hospitalist team management. Will follow Medications: Current Inpatient Medications Medications (Trade) Dose Ordered Sig/Maxine Route Start Time Stop Time Status Last Admin Dose Admin Artificial Tears (Lacri-Lube Oph Oint) 1 appln Q2H PRN OPB 03/24/17 14:00 04/23/17 13:59 Midazolam HCl 250 ml @ 0 mls/hr Q0M PRN IV 03/24/17 13:55 04/23/17 13:54 03/25/17 11:22 2 MLS/HR Fentanyl Citrate 250 ml @ 0 mls/hr Q0M IV 03/24/17 13:55 04/07/17 13:54 03/25/17 10:42 10 MLS/HR Buspirone HCl (BusPAR TAB) 60 mg ONE PRN NG 03/24/17 14:00 04/23/17 13:59 03/25/17 02:44 60 MG Pantoprazole Sodium 40 mg/ Syringe 10 ml @ 5 mls/min Q24H IV 03/24/17 21:00 04/23/17 20:59 03/25/17 21:55 5 MLS/MIN Insulin Aspart (novoLOG ASPART) SLIDING SCALE PCHS SC 03/24/17 17:15 04/23/17 18:59 Miscellaneous Information ( Icu Electrolyte Replacement Protocol) 1 ea per protocol PRN N/A 03/24/17 14:15 03/31/17 14:14 Glucose (Glucose 40% Gel) 15-30 GRAMS 15 GRAMS... UD PRN PO 03/24/17 14:30 04/23/17 14:29 Glucose (Glucose Chew Tab) 1 tabs UD PRN PO 03/24/17 14:30 04/23/17 14:29 Dextrose (Dextrose 50% 50ML Syringe) 25-50ML OF 50% DW IV FOR... UD PRN IV 03/24/17 14:30 04/23/17 14:29 Glucagon (Glucagon Inj) 1 mg UD PRN SQ 03/24/17 14:30 04/23/17 14:29 Aspirin (Aspirin Chew) 81 mg QAM PO 03/25/17 09:00 04/24/17 08:59 03/26/17 09:28 81 MG Clopidogrel Bisulfate (plAVix TAB) 75 mg QAM PO 03/25/17 09:00 04/24/17 08:59 03/26/17 09:28 75 MG Atorvastatin Calcium (Lipitor Tab) 80 mg QAM PO 03/25/17 09:00 04/24/17 08:59 03/26/17 09:28 80 MG Norepinephrine Bitartrate 8 mg/ Dextrose 508 ml @ 0 mls/hr Q0M PRN IV 03/24/17 16:45 04/23/17 16:44 03/25/17 17:25 6.4 MLS/HR Insulin Human Regular 250 units/ Sodium Chloride 252.5 ml @ 0 mls/hr DAILY@1130 IV 03/24/17 18:27 04/23/17 18:26 03/24/17 18:51 2.1 MLS/HR Meperidine HCl (Demerol Inj) 25 mg Q2H PRN IV 03/25/17 09:45 04/08/17 09:44 Sodium Bicarbonate 150 meq/Dextrose 1,150 ml @ 75 mls/hr [id number] IV 03/25/17 21:30 04/24/17 21:29 03/25/17 21:53 75 MLS/HR Ampicillin Sodium/ Sulbactam Sodium 1500 mg/Sodium Chloride 104 ml @ 208 mls/hr Q12H IV 03/26/17 12:00 04/02/17 11:59 Lab Results: 03/26/17 05:14 Red Blood Count 3.05, Mean Corpuscular Volume 90.8, Mean Corpuscular Hemoglobin 29.8, Mean Corpuscular Hemoglobin Concent 32.9, Mean Platelet Volume 10.5 03/26/17 05:14 Test 03/25/17 19:45 03/25/17 23:17 03/26/17 05:00 03/26/17 05:14 Immature Granulocyte % (Auto) 0.4 % White Blood Count 18.97 K/uL (4.8-10.8) 17.67 K/uL (4.8-10.8) Red Blood Count 3.16 M/uL (4.7-6.1) 3.05 M/uL (4.7-6.1) Hemoglobin 9.5 g/dL (14.0-18.0) 9.1 g/dL (14.0-18.0) Hematocrit 28.8 % (42-52) 27.7 % (42-52) Mean Corpuscular Volume 91.1 fL (80-100) 90.8 fL (80-100) Mean Corpuscular Hemoglobin 30.1 pg (25-34) 29.8 pg (25-34) Mean Corpuscular Hemoglobin Concent 33.0 g/dl (32-36) 32.9 g/dl (32-36) Platelet Count 148 K/uL (130-400) 123 K/uL (130-400) Mean Platelet Volume 10.9 fL (7.4-10.4) 10.5 fL (7.4-10.4) Neutrophils (%) (Auto) 83.4 % Lymphocytes (%) (Auto) 7.9 % Monocytes (%) (Auto) 8.0 % Eosinophils (%) (Auto) 0.1 % Basophils (%) (Auto) 0.2 % Neutrophils # (Auto) 15.86 K/uL (1.4-6.5) Lymphocytes # (Auto) 1.49 K/uL (1.2-3.4) Monocytes # (Auto) 1.51 K/uL (0.11-0.59) Eosinophils # (Auto) 0.01 K/uL (0-0.5) Basophils # (Auto) 0.03 K/uL (0-0.2) Immature Granulocyte # (Auto) 0.07 K/uL (0.00-0.02) Metamyelocytes % 2.6 % Metamyelocytes # 0.45 K/uL (0-0) Urine Occult Blood 3+ (NEG) Urine RBC (Auto) 5-10 /hpf (0-2) RDW Standard Deviation 51.3 fL (36.4-46.3) RDW Coefficient of Variation 15.6 % (11.5-14.5) Neutrophils % (Manual) 82.2 % Lymphocytes % (Manual) 7.1 % Monocytes % (Manual) 10.7 % Neutrophils # (Manual) 14.52 K/uL (1.4-6.5) Total Absolute Neutrophils 14.52 K/uL (1.4-6.5) Lymphocytes # (Manual) 1.25 K/uL (1.2-3.4) Total Absolute Lymphocytes 1.25 K/uL (1.2-3.4) Monocytes # (Manual) 1.89 K/uL (0.11-0.59) Echinocytes 1+ Prothrombin Time 13.1 SECONDS (9.0-12.0) Prothromb Time International Ratio 1.2 (0.9-1.1) Activated Partial Thromboplast Time 42.9 SECONDS (21.0-31.0) Partial Thromboplastin Ratio 1.7 Anion Gap 9.0 mmol/L (3-11) Est Creatinine Clear Calc Drug Dose 21.8 ml/min Estimated GFR () 20.1 Estimated GFR (Non- 17.4 BUN/Creatinine Ratio 14.4 (10-20) Calcium Level 6.7 mg/dl (8.5-10.1) Phosphorus Level 5.0 mg/dl (2.5-4.9) Magnesium Level 2.1 mg/dl (1.8-2.4) Total Bilirubin 0.7 mg/dl (0.2-1) Direct Bilirubin 0.2 mg/dl (0-0.2) Aspartate Amino Transf (AST/SGOT) 415 U/L (15-37) Alanine Aminotransferase (ALT/SGPT) 127 U/L (12-78) Alkaline Phosphatase 45 U/L (45-117) Total Protein 4.8 gm/dl (6.4-8.2) Albumin 2.2 gm/dl (3.4-5.0) Test 03/26/17 05:21 03/26/17 06:23 03/26/17 08:04 Fibrinogen 444 mg/dl (184-400) Bedside Glucose (other) 145 mg/dl (70-99) Blood Gas Sample Site Art Line Bedside Blood Gas pH (LAB) 7.20 (7.35-7.45) Bedside Blood Gas pCO2 (LAB) 59 mmHg (35-46) Bedside Blood Gas pO2 (LAB) 82 mmHg (80-95) Bedside Blood Gas HCO3 (LAB) 23 meq/L (19-24) Bedside Blood Gas Total CO2 25 mEq/l (24-31) Bedside Blood Gas Base Excess (LAB) -5.0 meq/L (-9-1.8) Bedside Blood Gas O2 Saturation 93.0 % (90-95) Amrik Test NA Oxygen Delivery Device Ventilator Bedside Oxygen Rate (breaths/min) 14 Blood Gas Minute Ventilation 9.5 Bedside FiO2 65 % Blood Gas Tidal Volume 500 Blood Gas PEEP 5
[2017-03-26] MEDS ORDERED: AMPICILLIN/SULBACTAM SOD INJ 1,500 MG in SODIUM CHLORIDE 0.9% 100ML 100 ML IV SCH (12:00)
[2017-03-26 12:08] LABS: ISTAT ARTERIAL BLOOD GAS HCO3 25 meq/L (19-24); ISTAT ARTERIAL BLOOD GAS PCO2 63 mmHg (35-46); ISTAT ARTERIAL BLOOD GAS PO2 66 mmHg (80-95); ISTAT ARTERIAL BLOOD GAS pH 7.21 (7.35-7.45); ISTAT CARBON DIOXIDE 27 mEq/l (24-31); ISTAT DELIVERY SYSTEM Ventilator; ISTAT FIO2 80 %; ISTAT PEEP 5; ISTAT RATE 14; ISTAT SITE Art Line; VE 7.5; Vt 600
[2017-03-26] MEDS: SODIUM BICARBONATE IV SCH (12:58)
[2017-03-26] MEDS: DEXTROSE 10% IV SCH (12:58)
[2017-03-26] MEDS: NOREPINEPHRINE BIT INJ 8 MG in DEXTROSE 5% 500ML 500 ML IV PRN (13:00)
[2017-03-26] MEDS ORDERED: NURSING VERBAL MED ORDER ONE ×2 (13:15→15:15)
[2017-03-26] MEDS ORDERED: SODIUM CHLORIDE 0.9% 1000ML 1,000 ML IV SCH (13:30)
[2017-03-26 14:57] LABS: HEMATOCRIT 26.7 % (42-52); MEAN CELL VOLUME 92.4 fL (80-100); MEAN CORPUSCULAR HEMOGLOBIN 29.8 pg (25-34); MEAN CORPUSCULAR HGB CONC 32.2 g/dl (32-36); MEAN PLATELET VOLUME 10.6 fL (7.4-10.4); PLATELET COUNT 129 K/uL (130-400); RED BLOOD COUNT 2.89 M/uL (4.7-6.1); WHITE BLOOD COUNT 14.94 K/uL (4.8-10.8)
[2017-03-26 15:30] LABS: BUN/CREATININE RATIO 13.7 (10-20); CALCIUM 6.4 mg/dl (8.5-10.1); CREATININE 3.71 mg/dl (0.60-1.40); POTASSIUM 6.1 mmol/L (3.5-5.1)
[2017-03-26] MEDS ORDERED: NOREPINEPHRINE BIT INJ 16 MG in DEXTROSE 5% 500ML 500 ML IV PRN (15:30)
--- NOTE | 2017-03-26 15:38 | Progress Note ---
Subjective Date of Service: Mar 26, 2017. Subjective Pt evaluation today including: conversation w/ patient, physical exam, chart review, lab review, review of studies, review of inpatient medication list Pt currently intubated No sedative meds at this time Family at bedside Problem List Medical Problems: (1) Acute DC, inferior wall Status: Acute (2) Anemia Status: Chronic (3) Cardiac arrest Status: Acute (4) Closed rib fracture Status: Acute (5) Hypocalcemia Status: Acute (6) Obesity Status: Chronic (7) Pneumothorax on right Status: Acute (8) Ribs, multiple fractures Status: Acute (9) ST elevation (STEMI) myocardial infarction involving left anterior descending coronary artery Status: Acute (10) Ventricular tachycardia Status: Acute Review of Systems Unable to assess due to intubated state Objective Vital Signs Date Time Temp Pulse Resp B/P (MAP) Pulse Ox O2 Delivery O2 Flow Rate FiO2 03/26/17 14:01 36.3 132 14 105/67 (80) 87 Mechanical Ventilator 100 03/26/17 14:00 36.3 132 14 79/50 (60) 87 Mechanical Ventilator 100 03/26/17 12:00 100 03/26/17 12:00 100 03/26/17 11:55 100 03/26/17 11:45 36.3 132 14 91/55 (67) 89 Mechanical Ventilator 100 03/26/17 11:40 100 03/26/17 11:30 36.4 131 14 95/57 (70) 88 Mechanical Ventilator 80 03/26/17 11:22 145 81/50 03/26/17 11:16 36.4 133 14 92/62 (72) 88 Mechanical Ventilator 80 03/26/17 11:15 36.4 144 14 80/50 (60) 88 Mechanical Ventilator 65 03/26/17 11:01 36.4 130 15 99/66 (77) 91 Mechanical Ventilator 65 03/26/17 11:00 36.4 130 15 103/66 (78) 92 Mechanical Ventilator 65 03/26/17 10:00 36.6 92 15 105/57 (73) 99 Mechanical Ventilator 65 03/26/17 08:00 Mechanical Ventilator 65 03/26/17 08:00 65 03/26/17 08:00 96 65 03/26/17 07:15 65 03/26/17 06:00 36.5 86 15 112/53 (72) 97 Mechanical Ventilator 65 121/54 (76) 03/26/17 05:29 65 03/26/17 05:10 81 12 (66) 91 104/47 03/26/17 05:01 83 14 140/66 (89) 94 119/52 03/26/17 05:00 36.4 83 13 114/52 (72) 94 Mechanical Ventilator 65 111/68 (82) 03/26/17 05:00 83 13 (71) 94 114/52 03/26/17 04:50 88 19 (65) 96 97/49 03/26/17 04:40 72 21 (59) 95 90/43 03/26/17 04:30 71 16 (59) 96 91/44 03/26/17 04:20 72 22 (61) 96 96/44 03/26/17 04:10 72 22 (64) 97 103/46 03/26/17 04:01 70 21 115/57 (74) 96 100/46 03/26/17 04:00 70 21 (63) 97 100/45 03/26/17 04:00 36.1 70 21 100/45 (63) 97 Mechanical Ventilator 65 102/45 (64) 03/26/17 04:00 96 Mechanical Ventilator 65 03/26/17 04:00 65 03/26/17 03:50 72 20 (65) 98 105/47 03/26/17 03:40 71 18 (65) 98 104/47 03/26/17 03:30 70 21 (66) 99 107/47 03/26/17 03:20 72 18 (72) 99 116/51 03/26/17 03:00 35.9 71 19 118/53 (74) 100 Mechanical Ventilator 65 117/52 (73) 03/26/17 02:16 65 03/26/17 02:00 35.7 71 17 116/51 (72) 100 Mechanical Ventilator 65 118/51 (73) 03/26/17 01:00 35.6 71 17 120/53 (75) 99 Mechanical Ventilator 65 115/51 (72) 03/26/17 00:00 35.6 74 18 133/55 (81) 98 Mechanical Ventilator 65 129/53 (78) 03/25/17 23:59 98 Mechanical Ventilator 65 03/25/17 23:59 65 03/25/17 23:03 65 03/25/17 23:00 35.9 77 18 129/53 (78) 98 Mechanical Ventilator 65 128/52 (77) 03/25/17 22:00 36.2 74 14 116/57 (76) 98 Mechanical Ventilator 65 92/45 (61) 03/25/17 21:13 59 18 96 Mechanical Ventilator 65 03/25/17 21:00 36.0 60 17 111/59 (76) 96 Mechanical Ventilator 65 97/47 (64) 03/25/17 20:01 35.7 59 18 107/58 (74) 95 Mechanical Ventilator 60 96/46 (63) 03/25/17 20:00 96 Mechanical Ventilator 60 03/25/17 20:00 60 03/25/17 19:55 65 03/25/17 19:45 60 03/25/17 19:00 35.2 58 16 101/47 (65) 94 Mechanical Ventilator 60 100/47 (64) 03/25/17 18:00 35.0 57 16 101/58 (72) 96 Mechanical Ventilator 60 93/43 (60) 03/25/17 17:35 60 03/25/17 17:00 35.0 57 16 95/56 (69) 93 Mechanical Ventilator 60 96/43 (60) 03/25/17 16:30 60 03/25/17 16:15 35.1 59 16 101/54 (70) 92 Mechanical Ventilator 50 110/54 (72) 03/25/17 16:00 50 03/25/17 16:00 93 50 03/25/17 15:39 50 Physical Exam General Appearance: WD/WN, no apparent distress Eyes: normal inspection, PERRL, EOMI, sclerae normal Neck: supple, no adenopathy, thyroid normal, no JVD Respiratory/Chest: chest non-tender, no accessory muscle use, + respiratory distress, + decreased breath sounds Cardiovascular: no edema, no gallop, no JVD, no murmur Abdomen: normal bowel sounds, non tender, soft, no organomegaly Extremities: normal range of motion, normal inspection, + pedal edema Lymphatic: no adenopathy Laboratory Results Last 24 Hours Test 03/25/17 16:07 03/25/17 16:14 03/25/17 19:45 03/25/17 19:46 White Blood Count 17.74 K/uL 18.97 K/uL Red Blood Count 3.32 M/uL 3.16 M/uL Hemoglobin 10.0 g/dL 9.5 g/dL Hematocrit 29.5 % 28.8 % Mean Corpuscular Volume 88.9 fL 91.1 fL Mean Corpuscular Hemoglobin 30.1 pg 30.1 pg Mean Corpuscular Hemoglobin Concent 33.9 g/dl 33.0 g/dl Platelet Count 157 K/uL 148 K/uL Mean Platelet Volume 11.0 fL 10.9 fL Neutrophils (%) (Auto) 80.4 % 83.4 % Lymphocytes (%) (Auto) 9.1 % 7.9 % Monocytes (%) (Auto) 9.9 % 8.0 % Eosinophils (%) (Auto) 0.0 % 0.1 % Basophils (%) (Auto) 0.1 % 0.2 % Neutrophils # (Auto) 14.28 K/uL 15.86 K/uL Lymphocytes # (Auto) 1.61 K/uL 1.49 K/uL Monocytes # (Auto) 1.75 K/uL 1.51 K/uL Eosinophils # (Auto) 0.00 K/uL 0.01 K/uL Basophils # (Auto) 0.02 K/uL 0.03 K/uL RDW Standard Deviation 47.7 fL 50.2 fL RDW Coefficient of Variation 14.6 % 15.1 % Immature Granulocyte % (Auto) 0.5 % 0.4 % Immature Granulocyte # (Auto) 0.08 K/uL 0.07 K/uL Prothrombin Time 11.7 SECONDS 11.8 SECONDS Prothromb Time International Ratio 1.1 1.1 Activated Partial Thromboplast Time 38.8 SECONDS 35.5 SECONDS Partial Thromboplastin Ratio 1.5 1.4 Sodium Level 140 mmol/L 138 mmol/L Potassium Level 5.5 mmol/L 6.3 mmol/L Chloride Level 108 mmol/L 106 mmol/L Carbon Dioxide Level 18 mmol/L 21 mmol/L Anion Gap 14.0 mmol/L 11.0 mmol/L Blood Urea Nitrogen 41 mg/dl 42 mg/dl Creatinine 2.75 mg/dl 2.94 mg/dl Est Creatinine Clear Calc Drug Dose 27.5 ml/min 25.8 ml/min Estimated GFR () 26.6 24.6 Estimated GFR (Non- 23.0 21.2 BUN/Creatinine Ratio 14.7 14.4 Random Glucose 99 mg/dl 116 mg/dl Calcium Level 7.3 mg/dl 6.8 mg/dl Phosphorus Level 3.5 mg/dl 3.7 mg/dl Magnesium Level 2.1 mg/dl 2.0 mg/dl Blood Gas Sample Site Art Line Bedside Blood Gas pH (LAB) 7.33 Bedside Blood Gas pCO2 (LAB) 32 mmHg Bedside Blood Gas pO2 (LAB) 56 mmHg Bedside Blood Gas HCO3 (LAB) 17 meq/L Bedside Blood Gas Total CO2 18 mEq/l Bedside Blood Gas Base Excess (LAB) -9.0 meq/L Bedside Blood Gas O2 Saturation 90.0 % Amrik Test NA Oxygen Delivery Device Ventilator Bedside Oxygen Rate (breaths/min) 12 Blood Gas Minute Ventilation 12.8 Bedside FiO2 50 % Blood Gas Tidal Volume 500 Blood Gas PEEP 5 Echinocytes 2+ Bedside Glucose (other) 116 mg/dl Test 03/25/17 20:12 03/25/17 20:34 03/25/17 22:06 03/25/17 23:09 Blood Gas Sample Site Art Line Bedside Blood Gas pH (LAB) 7.27 Bedside Blood Gas pCO2 (LAB) 39 mmHg Bedside Blood Gas pO2 (LAB) 72 mmHg Bedside Blood Gas HCO3 (LAB) 18 meq/L Bedside Blood Gas Total CO2 19 mEq/l Bedside Blood Gas Base Excess (LAB) -9.0 meq/L Bedside Blood Gas O2 Saturation 93.0 % Amrik Test NA Oxygen Delivery Device Ventilator Bedside Oxygen Rate (breaths/min) 12 Blood Gas Minute Ventilation 6.0 Bedside FiO2 60 % Blood Gas Tidal Volume 500 Blood Gas PEEP 5 Bedside Glucose (other) 111 mg/dl 237 mg/dl 150 mg/dl Test 03/25/17 23:17 03/26/17 00:12 03/26/17 00:16 03/26/17 01:17 White Blood Count 17.21 K/uL Red Blood Count 2.85 M/uL Hemoglobin 8.7 g/dL Hematocrit 26.0 % Mean Corpuscular Volume 91.2 fL Mean Corpuscular Hemoglobin 30.5 pg Mean Corpuscular Hemoglobin Concent 33.5 g/dl Platelet Count 139 K/uL Mean Platelet Volume 10.7 fL RDW Standard Deviation 50.9 fL RDW Coefficient of Variation 15.3 % Neutrophils % (Manual) 84.3 % Lymphocytes % (Manual) 6.1 % Monocytes % (Manual) 7.0 % Metamyelocytes % 2.6 % Neutrophils # (Manual) 14.51 K/uL Total Absolute Neutrophils 14.51 K/uL Lymphocytes # (Manual) 1.05 K/uL Total Absolute Lymphocytes 1.05 K/uL Monocytes # (Manual) 1.20 K/uL Metamyelocytes # 0.45 K/uL Echinocytes 1+ Prothrombin Time 12.7 SECONDS Prothromb Time International Ratio 1.2 Activated Partial Thromboplast Time 39.5 SECONDS Partial Thromboplastin Ratio 1.5 Sodium Level 139 mmol/L Potassium Level 5.1 mmol/L Chloride Level 106 mmol/L Carbon Dioxide Level 20 mmol/L Anion Gap 13.0 mmol/L Blood Urea Nitrogen 45 mg/dl Creatinine 3.20 mg/dl Est Creatinine Clear Calc Drug Dose 23.7 ml/min Estimated GFR () 22.2 Estimated GFR (Non- 19.1 BUN/Creatinine Ratio 14.0 Random Glucose 147 mg/dl Calcium Level 6.9 mg/dl Phosphorus Level 4.0 mg/dl Magnesium Level 2.0 mg/dl Blood Gas Sample Site Art Line Bedside Blood Gas pH (LAB) 7.33 Bedside Blood Gas pCO2 (LAB) 34 mmHg Bedside Blood Gas pO2 (LAB) 87 mmHg Bedside Blood Gas HCO3 (LAB) 18 meq/L Bedside Blood Gas Total CO2 19 mEq/l Bedside Blood Gas Base Excess (LAB) -8.0 meq/L Bedside Blood Gas O2 Saturation 97.0 % Amrik Test NA Oxygen Delivery Device Ventilator Bedside Oxygen Rate (breaths/min) 12 Blood Gas Minute Ventilation 6.0 Bedside FiO2 65 % Blood Gas Tidal Volume 500 Blood Gas PEEP 5 Bedside Glucose (other) 138 mg/dl 143 mg/dl Test 03/26/17 02:20 03/26/17 03:15 03/26/17 04:13 03/26/17 04:18 Bedside Glucose (other) 142 mg/dl 142 mg/dl 143 mg/dl Blood Gas Sample Site Art Line Bedside Blood Gas pH (LAB) 7.29 Bedside Blood Gas pCO2 (LAB) 42 mmHg Bedside Blood Gas pO2 (LAB) 92 mmHg Bedside Blood Gas HCO3 (LAB) 20 meq/L Bedside Blood Gas Total CO2 21 mEq/l Bedside Blood Gas Base Excess (LAB) -7.0 meq/L Bedside Blood Gas O2 Saturation 96.0 % Amrik Test NA Oxygen Delivery Device Ventilator Bedside Oxygen Rate (breaths/min) 12 Blood Gas Minute Ventilation 6 Bedside FiO2 65 % Blood Gas Tidal Volume 500 Blood Gas PEEP 5 Test 03/26/17 05:00 03/26/17 05:14 03/26/17 05:21 03/26/17 06:23 Urine Occult Blood 3+ Urine RBC (Auto) 5-10 /hpf White Blood Count 17.67 K/uL Red Blood Count 3.05 M/uL Hemoglobin 9.1 g/dL Hematocrit 27.7 % Mean Corpuscular Volume 90.8 fL Mean Corpuscular Hemoglobin 29.8 pg Mean Corpuscular Hemoglobin Concent 32.9 g/dl Platelet Count 123 K/uL Mean Platelet Volume 10.5 fL RDW Standard Deviation 51.3 fL RDW Coefficient of Variation 15.6 % Neutrophils % (Manual) 82.2 % Lymphocytes % (Manual) 7.1 % Monocytes % (Manual) 10.7 % Neutrophils # (Manual) 14.52 K/uL Total Absolute Neutrophils 14.52 K/uL Lymphocytes # (Manual) 1.25 K/uL Total Absolute Lymphocytes 1.25 K/uL Monocytes # (Manual) 1.89 K/uL Echinocytes 1+ Prothrombin Time 13.1 SECONDS Prothromb Time International Ratio 1.2 Activated Partial Thromboplast Time 42.9 SECONDS Partial Thromboplastin Ratio 1.7 Sodium Level 139 mmol/L Potassium Level 4.8 mmol/L Chloride Level 105 mmol/L Carbon Dioxide Level 25 mmol/L Anion Gap 9.0 mmol/L Blood Urea Nitrogen 50 mg/dl Creatinine 3.47 mg/dl Est Creatinine Clear Calc Drug Dose 21.8 ml/min Estimated GFR () 20.1 Estimated GFR (Non- 17.4 BUN/Creatinine Ratio 14.4 Random Glucose 145 mg/dl Calcium Level 6.7 mg/dl Phosphorus Level 5.0 mg/dl Magnesium Level 2.1 mg/dl Total Bilirubin 0.7 mg/dl Direct Bilirubin 0.2 mg/dl Aspartate Amino Transf (AST/SGOT) 415 U/L Alanine Aminotransferase (ALT/SGPT) 127 U/L Alkaline Phosphatase 45 U/L Total Protein 4.8 gm/dl Albumin 2.2 gm/dl Fibrinogen 444 mg/dl Bedside Glucose (other) 145 mg/dl Test 03/26/17 08:04 03/26/17 11:37 03/26/17 11:55 03/26/17 14:48 Blood Gas Sample Site Art Line Art Line Bedside Blood Gas pH (LAB) 7.20 7.21 Bedside Blood Gas pCO2 (LAB) 59 mmHg 63 mmHg Bedside Blood Gas pO2 (LAB) 82 mmHg 66 mmHg Bedside Blood Gas HCO3 (LAB) 23 meq/L 25 meq/L Bedside Blood Gas Total CO2 25 mEq/l 27 mEq/l Bedside Blood Gas Base Excess (LAB) -5.0 meq/L -3.0 meq/L Bedside Blood Gas O2 Saturation 93.0 % 88.0 % Amrik Test NA NA Oxygen Delivery Device Ventilator Ventilator Bedside Oxygen Rate (breaths/min) 14 14 Blood Gas Minute Ventilation 9.5 7.5 Bedside FiO2 65 % 80 % Blood Gas Tidal Volume 500 600 Blood Gas PEEP 5 5 Bedside Glucose (other) 148 mg/dl White Blood Count 14.94 K/uL Red Blood Count 2.89 M/uL Hemoglobin 8.6 g/dL Hematocrit 26.7 % Mean Corpuscular Volume 92.4 fL Mean Corpuscular Hemoglobin 29.8 pg Mean Corpuscular Hemoglobin Concent 32.2 g/dl RDW Standard Deviation 54.8 fL RDW Coefficient of Variation 16.3 % Platelet Count 129 K/uL Mean Platelet Volume 10.6 fL Sodium Level 136 mmol/L Potassium Level 6.1 mmol/L Chloride Level 103 mmol/L Carbon Dioxide Level 26 mmol/L Anion Gap 7.0 mmol/L Blood Urea Nitrogen 51 mg/dl Creatinine 3.71 mg/dl Est Creatinine Clear Calc Drug Dose 20.4 ml/min Estimated GFR () 18.5 Estimated GFR (Non- 16.0 BUN/Creatinine Ratio 13.7 Random Glucose 158 mg/dl Calcium Level 6.4 mg/dl Assessment and Plan Pt is a 66 yo male with a h/o UC, who presented to the hospital via EMS after having chest pain followed by cardiac arrest. He was resuscitated at home first by a neighbor, and then by EMS. He had ROSC after approx 20 min at home, then arrested again en route to the hospital and again achieved ROSC. He had a PTX on the right on arrival with placement of a chest tube. He was stabilized and taken to the [facility] where he had a stent placed to the LAD. He was then transported to the ICU and is undergoing hypothermic protocol. EEG shows evidence of severe encephalopathy STEMI/Cardiac arrest/CAD s/p LIN to LAD/Atrial fibrillation-> was on integrilin gtt but stopped due to bleeding, loaded with ASA and Plavix. Now on therapeutic hypothermia protocol. Prognosis very poor at this point with evidence of significant and anoxic brain injury. Remains unresponsive on no sedation. -Continue in ICU for critical status, ventilator management and pressor support with levophed which was titrated up due to hypotension -Continue ASA, Plavix -Appreciate Cardiology management -Therapeutic hypothermia per ICU team, warming process continuing at this time -Continue amiodarone infusion for paroxysmal A-fib -Trend troponins until peak-currently a greater than 200 -Echocardiogram with a very difficult study-grossly normal LV function with akinetic apex -High-dose statin -Appreciate [place] [facility] Management -Worsening renal impairment and hepatic shock, will likely withdraw care tomorrow AM, family at bedside updated, no further concerns at this time Hypokalemia/Hypocalcemia/Hypophosphatemia/Metabolic acidosis/DIANA--> all in setting of cardiac arrest. -replace lytes as per ICU team -follow labs Right sided PTX s/p likely traumatic PTX from chest compressions/rib fracture- chest tube in place -chest tube management as per ICU Hyperglycemia- in setting of high stress, hemoglobin A1c is normal -insulin gtt, accuchecks Elevated TSH-TSH 10 on admission -follow in non acute setting Ulcerative colitis-no current issues Proph-SCDs Dispo-FULL CODE
[2017-03-26 21:00] LABS: HEMATOCRIT 26.3 % (42-52); MEAN CELL VOLUME 93.3 fL (80-100); MEAN CORPUSCULAR HEMOGLOBIN 29.8 pg (25-34); MEAN CORPUSCULAR HGB CONC 31.9 g/dl (32-36); MEAN PLATELET VOLUME 10.6 fL (7.4-10.4); PLATELET COUNT 123 K/uL (130-400); RED BLOOD COUNT 2.82 M/uL (4.7-6.1); WHITE BLOOD COUNT 7.09 K/uL (4.8-10.8)
[2017-03-26] MEDS ORDERED: AMPICILLIN SOD/SULBACTAM SOD 3 GM VIAL IV SCH (21:00)
[2017-03-26 21:22] LABS: ALB/GLOB RATIO 0.7 (0.9-2); BUN/CREATININE RATIO 13.1 (10-20); CALCIUM 6.3 mg/dl (8.5-10.1); CREATININE 3.97 mg/dl (0.60-1.40); MAGNESIUM 1.9 mg/dl (1.8-2.4); PHOSPHORUS 6.4 mg/dl (2.5-4.9)
[2017-03-26] MEDS ORDERED: SODIUM CHLORIDE 0.9% 10ML FLUSH IV ONE (23:10)
[2017-03-26] MEDS ORDERED: LIDOCAINE HCL/D5W 4 MG/ML 2000 MG/500 ML BAG IV ONE (23:10)
[2017-03-26] MEDS ORDERED: SODIUM BICARB 8.4% INJ 50 MEQ/50 ML SYR IV ONE (23:10)
--- NOTE | 2017-03-26 23:19 | Death Pronouncement Note ---
Pronouncement Note Date & Time of Mar 26, 2017. 2311 (Bruce Arriola, MELINA) Pronouncement At time of pronouncement the patients pupils were fixed and dilated, there was no spontaneous respiratory effort, no palpable pulse, no audible heart tones, and no response to pain or voice. Time of : 2310 (Bruce Arriola, MELINA)
[2017-03-26 23:25] LABS: BASO % 0.3 %; BASO ABS # 0.02 K/uL (0-0.2); COMPLETE YES; DOHLE BODIES OCCASIONAL; ECHINOCYTES 1+; EOS % 0.7 %; IG% 0.4 %; LARGE PLATELETS 1+; LYMPH % 18.3 %; MONO % 6.5 %; NEUT % 73.8 %; VACUOLIZATION 1+
--- NOTE | 2017-03-27 15:31 | EEG Procedure Note ---
EEG Procedure Note Date of Service Mar 26, 2017. Start / End Times Start Time: 03/26/17 at 8:40 AM End Time: 03/26/17 at 22:36 PM Referring Physician Neville Metzger History This is a 66-year-old male status post cardiac arrest and hypothermia protocol. Patient has been rewarmed. Continues EEG per protocol to evaluate for sub clinical status epilepticus. Home Medication List Unable to Obtain Active Prescriptions or Reported Meds Description This is a 21 electrode continuous video EEG with a single channel dedicated to limited EKG. The electrodes were placed in accordance with the International 10- 20 system. Post processing with an event detection algorithm is applied to the continuous data collection for the purpose of identifying abnormal epochs. These detections are reviewed and all candidate seizures are processed for further analysis. Data is reviewed in its raw format and patient events are processed, edited and stored. Patient was unresponsive and intubated at the time of this recording. At the start of the recording the background was poorly organized. Background was diffusely suppressed with occasional intermittent low amplitude delta activity versus artifact. On video there is no clinical abnormal movement concerning for seizure. Interpretation This is an abnormal continuous video EEG secondary to diffuse background suppression and occasional low amplitude intermittent delta activity. There was no electrographic seizures or epileptiform discharges. Clinical Correlation This EEG indicates a severe encephalopathy of nonspecific etiology. I discussed findings with ICU attending on the evening of March 26. EEG does not meet EEG brain criteria due to occasional delta waves seen in the background. While these low amplitude delta waves could be artifact, I cannot 100% rule out some residual brain activity. Overall prognosis appears poor due to diffuse background suppression, not on sedating medications or hypothermia protocol, and clinical presentation of brain (no obtainable cranial nerve function).
--- NOTE | 2017-03-27 17:17 | Death Summary ---
Summary of Admission Date Mar 24, 2017 at 16:07 Date & Time of Mar 26, 2017. 2311 Cause of Cardiac arrest, [place] Hospital Course Pt is a 66 yo male with a h/o UC, who presented to the hospital via EMS after having chest pain followed by cardiac arrest. He was resuscitated at home first by a neighbor, and then by EMS. He had ROSC after approx 20 min at home, then arrested again en route to the hospital and again achieved ROSC. He had a PTX on the right on arrival with placement of a chest tube. He was stabilized and taken to the lab courier where he had a stent placed to the LAD. He was then transported to the ICU and is undergoing hypothermic protocol. EEG shows evidence of severe encephalopathy STEMI/Cardiac arrest/CAD s/p LIN to LAD/Atrial fibrillation-> was on integrilin gtt but stopped due to bleeding, loaded with ASA and Plavix. Now on therapeutic hypothermia protocol. Prognosis very poor at this point with evidence of significant and anoxic brain injury. Remains unresponsive on no sedation. -Continue in ICU for critical status, ventilator management and pressor support with levophed which was titrated up due to hypotension -Continue ASA, Plavix -Appreciate Cardiology management -Therapeutic hypothermia per ICU team, warming process continuing at this time -Continue amiodarone infusion for paroxysmal A-fib -Trend troponins until peak-currently a greater than 200 -Echocardiogram with a very difficult study-grossly normal LV function with akinetic apex -High-dose statin -Appreciate Director Learning Management -Worsening renal impairment and hepatic shock, will likely withdraw care tomorrow AM, family at bedside updated -Pt extubated on 03/26/17 per family wishes and was pronounced at 2311, family at bedside Hypokalemia/Hypocalcemia/Hypophosphatemia/Metabolic acidosis/DIANA--> all in setting of cardiac arrest. -replace lytes as per ICU team -follow labs Right sided PTX s/p likely traumatic PTX from chest compressions/rib fracture- chest tube in place -chest tube management as per ICU Hyperglycemia- in setting of high stress, hemoglobin A1c is normal -insulin gtt, accuchecks Elevated TSH-TSH 10 on admission -follow in non acute setting Ulcerative colitis-no current issues Proph-SCDs Dispo-FULL CODE
== END 2017-03-26 23:11 | disposition expired | DRG 246 ==
LOC: EDBD 12:18 → C.EDB 12:42 → C.MSICU 16:07
PROVIDERS: ADMIT Family Medicine; ATTEND Hospitalist
PROC: 4A023N7 Measurement of Cardiac Sampling and Pressure, Left Heart, Percutaneous Approach (ICD-10-PCS; 2017-03-24)
PROC: B210YZZ Fluoroscopy of Single Coronary Artery using Other Contrast (ICD-10-PCS; 2017-03-24)
PROC: B240ZZ3 Ultrasonography of Single Coronary Artery, Intravascular (ICD-10-PCS; 2017-03-24)
PROC: 027034Z Dilation of Coronary Artery, One Artery with Drug-eluting Intraluminal Device, Percutaneous Approach (ICD-10-PCS; 2017-03-24)
PROC: 0B9 Respiratory System, Drainage (ICD-10-PCS; principal; 2017-03-24 12:38)
DX: I21.19 ST elevation (STEMI) myocardial infarction involving other coronary artery of inferior wall (principal); G93.40 Encephalopathy, unspecified; J93.9 Pneumothorax, unspecified; E87.2 Acidosis; N17.9 Acute kidney failure, unspecified; E66.9 Obesity, unspecified; D64.9 Anemia, unspecified; E83.51 Hypocalcemia; I46.9 Cardiac arrest, cause unspecified; E87.6 Hypokalemia; E83.39 Other disorders of phosphorus metabolism; R73.9 Hyperglycemia, unspecified; Z87.442 Personal history of urinary calculi; Z80.9 Family history of malignant neoplasm, unspecified; Z84.1 Family history of disorders of kidney and ureter